=== PATIENT | male | born 1940 | race Caucasian/White ===

== ENCOUNTER 2018-12-29 15:59 | Inpatient (IN) | payer MEDICARE ==
[2018-12-29] MEDS ORDERED: Sodium Chloride 0.9% 10 ML Syringe FLUSH PRN (16:09)
[2018-12-29 17:28] LABS: ACETAMINOPHEN 0 ug/mL (10-30)
--- NOTE | 2018-12-29 17:36 | EDM.PDOC ---
ED HPI GENERAL MEDICAL PROBLEM - General Chief Complaint: Neuro Symptoms/Deficits Stated Complaint: [facility] Time Seen by Provider: 12/29/18 16:08 Source of Information: Reports: Patient, EMS History Limitations: Reports: No Limitations - History of Present Illness INITIAL COMMENTS - FREE TEXT/NARRATIVE: The patient presents by [facility] for a stroke. The patient says this started night right after dinner. His last time know well was 6pm. His right arm and leg quit working. He has severe weakness to his right arm and moderate weakness to his right leg. He knew he had a stroke he went to bed and did not call anyone for help. He lives alone. He got depressed on Saturday and cut his arm in 3 places. Twice to the right wrist and once to the right AC. He was trying to kill himself but he did not bleed that much. He has no headache, fever, chills, cough, chest pain, shortness of breath, abdominal pain, nausea or vomiting. He called 911 for help. He has to crawl in his house to get around. He new cutting himself was wrong. He has not eaten or drank much the past few days. He has prostate cancer and he is on medication for that and high blood pressure. His PSA has gone up so his urologist is coming up with a different plan. He does admit to drinking the past few days. Onset: Sudden Duration: Day(s): (5) Severity: Severe Improves with: Reports: None Worsens with: Reports: None Associated Symptoms: Reports: No Other Symptoms - Related Data Allergies Allergy/AdvReac Type Severity Reaction Status Date / Time No Known Allergies Allergy Verified 12/29/18 16:13 Home Meds: Home Meds Degarelix [Firmagon] 80 mg SQ ASDIRECTED 12/29/18 [History] Losartan/Hydrochlorothiazide [Hyzaar 100-12.5 Tablet] 1 each PO DAILY 12/29/18 [ History] amLODIPine Besylate [Amlodipine Besylate] 5 mg PO DAILY 12/29/18 [History] Past Medical History Cardiovascular History: Reports: Hypertension Oncologic (Cancer) History: Reports: Prostate - Past Surgical History Male Surgical History: Reports: Other (See Below) Other Male Surgeries/Procedures: patient has seeds placed for prostrate cancer. Social & Family History - Tobacco Use Smoking Status *Q: Current Every Day Smoker Years of Tobacco use: 62 Packs/Tins Daily: 1 Used Tobacco, but Quit: No - Caffeine Use Caffeine Use: Reports: Coffee, Soda - Alcohol Use Number of Drinks Per Day: 4 Date of Last Drink: 12/29/18 - Recreational Drug Use Recreational Drug Use: No ED ROS GENERAL - Review of Systems Review Of Systems: See Below Constitutional: Reports: No Symptoms HEENT: Reports: No Symptoms Respiratory: Reports: No Symptoms Cardiovascular: Reports: No Symptoms Endocrine: Reports: No Symptoms GI/Abdominal: Reports: No Symptoms : Reports: No Symptoms Neurological: Reports: Other (Right arm and leg weakness with numbness) ED EXAM, NEURO - Physical Exam Exam: See Below Exam Limited By: No Limitations General Appearance: Alert, No Apparent Distress Ears: Normal External Exam Nose: Normal Inspection Head Exam: Atraumatic, Normocephalic Neck: Normal Inspection Respiratory/Chest: No Respiratory Distress, Lungs Clear, Normal Breath Sounds Cardiovascular: Regular Rate, Rhythm, No Edema, No Murmur GI/Abdominal: Soft, Non-Tender, No Organomegaly, No Mass Neurological: Alert, Other (Severe weakness to his hand and wrist on the right. Moderate weakness to the shoulder. He can lift his arm up. He has moderate weakness to his right leg.) Extremities: Other (1cm laceration to the right AC, two 1cm lacerations to the right wrist) EKG INTERPRETATION EKG Date: 12/29/18 Time: 16:24 Rhythm: Other (sinus tachycardia) Rate (Beats/Min): 120 [place]: Normal P-Wave: Present QRS: Normal ST-T: Depressed (Global ST depression) QT: Normal Course - Vital Signs Last Recorded V/S: Last Vital Signs Temp 98.5 F 12/29/18 16:06 Pulse 121 H 12/29/18 16:06 Resp 18 12/29/18 16:06 BP 137/84 12/29/18 16:06 Pulse Ox 98 12/29/18 16:06 - Orders/Labs/Meds Orders: Active Orders 24 hr Category Date Time Status Cardiac Monitoring [RC] . DIRECTED Care 12/29/18 16:09 Active EKG Documentation Completion [RC] STAT Care 12/29/18 16:09 Active Peripheral IV Care [RC] . DIRECTED Care 12/29/18 16:09 Active Head wo Cont [CT] Routine Exams 12/29/18 16:11 Taken DRUG SCREEN, URINE [URCHEM] Stat Lab 12/29/18 17:52 Ordered DRUG SCREEN, URINE [URCHEM] Stat Lab 12/29/18 17:52 Ordered NS + KCl 20mEq/L [Normal Saline with 20 mEq KCl] 1,000 Med 12/29/18 18:00 Active ml IV ASDIRECTED Sodium Chloride 0.9% [Saline Flush] Med 12/29/18 16:09 Active 10 ml FLUSH ASDIRECTED PRN Peripheral IV Insertion Adult [OM.PC] Stat Oth 12/29/18 16:09 Ordered Medication Orders Potassium Chloride/Sodium Chloride (Normal Saline With 20 Meq Kcl) 1,000 mls @ 150 mls/hr IV ASDIRECTED ADELINA Last Admin: 12/29/18 18:03 Dose: 150 mls/hr Sodium Chloride (Saline Flush) 10 ml FLUSH ASDIRECTED PRN PRN Reason: Keep Vein Open Last Admin: 12/29/18 16:28 Dose: 10 ml Labs: Laboratory Tests 12/29/18 12/29/18 12/29/18 Range/Units 16:15 16:35 16:35 WBC 12.79 H (4.23-9.07) K/mm3 RBC 3.98 L (4.63-6.08) M/mm3 Hgb 11.9 L (13.7-17.5) gm/L Hct 35.4 L (40.1-51.0) % MCV 88.9 (79.0-92.2) fl MCH 29.9 (25.7-32.2) pg MCHC 33.6 (32.2-35.5) g/dl RDW Std Deviation 44.6 H (35.1-43.9) fL Plt Count 278 (163-337) K/mm3 MPV 10.1 (9.4-12.3) fl Neut % (Auto) 77.7 H (34.0-67.9) % Lymph % (Auto) 14.5 L (21.8-53.1) % [place] % (Auto) 7.2 (5.3-12.2) % Eos % (Auto) 0.2 L (0.8-7.0) Baso % (Auto) 0.2 (0.1-1.2) % Neut # (Auto) 9.95 H (1.78-5.38) K/mm3 Lymph # (Auto) 1.86 (1.32-3.57) K/mm3 [place] # (Auto) 0.92 H (0.30-0.82) K/mm3 Eos # (Auto) 0.02 L (0.04-0.54) K/mm3 Baso # (Auto) 0.02 (0.01-0.08) K/mm3 PT 10.9 (9.5-12.1) SECONDS INR 1.00 APTT 25 (24-31) SECONDS Sodium (136-145) mEq/L Potassium (3.5-5.1) mEq/L Chloride (98-107) mEq/L Carbon Dioxide (21-32) mEq/L Anion Gap (5-15) BUN (7-18) mg/dL Creatinine (0.7-1.3) mg/dL Est Cr Clr Drug Dosing mL/min Estimated GFR (MDRD) (>60) mL/min BUN/Creatinine Ratio (14-18) Glucose (83-115) mg/dL POC Glucose 124 H (83-110) mg/dL Calcium (8.5-10.1) mg/dL Total Bilirubin (0.2-1.0) mg/dL AST (15-37) U/L ALT (16-63) U/L Alkaline Phosphatase (46-116) U/L Troponin I (0.00-0.056) ng/mL Total Protein (6.4-8.2) g/dl Albumin (3.4-5.0) g/dl Globulin gm/dL Albumin/Globulin Ratio (1-2) TSH 3rd Generation (0.358-3.74) uIU/mL Salicylates (2.8-20) mg/dL Acetaminophen (10-30) ug/mL Ethyl Alcohol (0.00) gm% 12/29/18 12/29/18 Range/Units 16:35 16:35 WBC (4.23-9.07) K/mm3 RBC (4.63-6.08) M/mm3 Hgb (13.7-17.5) gm/L Hct (40.1-51.0) % MCV (79.0-92.2) fl MCH (25.7-32.2) pg MCHC (32.2-35.5) g/dl RDW Std Deviation (35.1-43.9) fL Plt Count (163-337) K/mm3 MPV (9.4-12.3) fl Neut % (Auto) (34.0-67.9) % Lymph % (Auto) (21.8-53.1) % [place] % (Auto) (5.3-12.2) % Eos % (Auto) (0.8-7.0) Baso % (Auto) (0.1-1.2) % Neut # (Auto) (1.78-5.38) K/mm3 Lymph # (Auto) (1.32-3.57) K/mm3 [place] # (Auto) (0.30-0.82) K/mm3 Eos # (Auto) (0.04-0.54) K/mm3 Baso # (Auto) (0.01-0.08) K/mm3 PT (9.5-12.1) SECONDS INR APTT (24-31) SECONDS Sodium 140 (136-145) mEq/L Potassium 2.5 L (3.5-5.1) mEq/L Chloride 99 (98-107) mEq/L Carbon Dioxide 32 (21-32) mEq/L Anion Gap 11.5 (5-15) BUN 45 H (7-18) mg/dL Creatinine 1.3 (0.7-1.3) mg/dL Est Cr Clr Drug Dosing 39.69 mL/min Estimated GFR (MDRD) 54 (>60) mL/min BUN/Creatinine Ratio 34.6 H (14-18) Glucose 116 H (83-115) mg/dL POC Glucose (83-110) mg/dL Calcium 8.8 (8.5-10.1) mg/dL Total Bilirubin 1.2 H (0.2-1.0) mg/dL AST 21 (15-37) U/L ALT 18 (16-63) U/L Alkaline Phosphatase 78 (46-116) U/L Troponin I < 0.017 (0.00-0.056) ng/mL Total Protein 6.4 (6.4-8.2) g/dl Albumin 3.1 L (3.4-5.0) g/dl Globulin 3.3 gm/dL Albumin/Globulin Ratio 0.9 L (1-2) TSH 3rd Generation 2.290 (0.358-3.74) uIU/mL Salicylates 0.5 L (2.8-20) mg/dL Acetaminophen 0 L (10-30) ug/mL Ethyl Alcohol 0.00 (0.00) gm% Meds: Medications Generic Name Dose Route Start Last Admin Trade Name Freq PRN Reason Stop Dose Admin Potassium Chloride/Sodium Chloride 1,000 mls @ 150 mls/hr 12/29/18 18:00 02/13 18:03 Normal Saline With 20 Meq Kcl IV 150 mls/hr ASDIRECTED ADELINA Administration Sodium Chloride 10 ml 12/29/18 16:09 12/29/18 16:28 Saline Flush FLUSH 10 ml ASDIRECTED PRN Administration Keep Vein Open - Re-Assessments/Exams Free Text/Narrative Re-Assessment/Exam: 12/29/18 17:39 I ordered an IV saline lock, EKG, CT of his head, and labs. His EKG shows a sinus tachycardia with some ST depression globally. His CT shows senescent change but no acute intracranial abnormality is identified on noncontrast head CT exam. His WBC was elevated at 12.79. His Hgb was low at 11.9. His PT, INR and PTT were normal. His K was low at 2.5. I ordered IV NS with 20 of KCL at 150mL/hr. His glucose was 124. His TSH was normal. His ETOH was negative. His salicylates and acetaminophen were normal. I feel he needs to be admitted. I called Dr Lenz and she agreed to the admission. I talked to him about code status. He wants to be full code. He is not suicidal at this time. He admits it was a mistake. Departure - Departure Time of Disposition: 18:20 Disposition: Admitted As Inpatient 67 Condition: Fair Clinical Impression: Hypokalemia, Suicidal ideation Cerebrovascular accident (CVA) Qualifiers: CVA mechanism: unspecified Qualified Code(s): I63.9 - Cerebral infarction, unspecified Laceration of right upper arm Qualifiers: Encounter type: initial encounter Qualified Code(s): S41.111A - Laceration without foreign body of right upper arm, initial encounter - Discharge Information Referrals: Shai Samano MD [Primary Care Provider] - Forms: ED Department Discharge - My Orders Last 24 Hours: My Active Orders 12/29/18 16:09 Cardiac Monitoring [RC] . DIRECTED EKG Documentation Completion [RC] STAT Peripheral IV Care [RC] . DIRECTED Sodium Chloride 0.9% [Saline Flush] 10 ml FLUSH ASDIRECTED PRN Peripheral IV Insertion Adult [OM.PC] Stat 12/29/18 16:11 Head wo Cont [CT] Routine 12/29/18 17:52 DRUG SCREEN, URINE [URCHEM] Stat DRUG SCREEN, URINE [URCHEM] Stat 12/29/18 18:00 NS + KCl 20mEq/L [Normal Saline with 20 mEq KCl] 1,000 ml IV ASDIRECTED - Assessment/Plan Last 24 Hours: My Active Orders 12/29/18 16:09 Cardiac Monitoring [RC] . DIRECTED EKG Documentation Completion [RC] STAT Peripheral IV Care [RC] . DIRECTED Sodium Chloride 0.9% [Saline Flush] 10 ml FLUSH ASDIRECTED PRN Peripheral IV Insertion Adult [OM.PC] Stat 12/29/18 16:11 Head wo Cont [CT] Routine 12/29/18 17:52 DRUG SCREEN, URINE [URCHEM] Stat DRUG SCREEN, URINE [URCHEM] Stat 12/29/18 18:00 NS + KCl 20mEq/L [Normal Saline with 20 mEq KCl] 1,000 ml IV ASDIRECTED
[2018-12-29] MEDS ORDERED: NS + KCl 20mEq/L 1,000 ML IV SCH (18:00)
--- NOTE | 2018-12-29 19:23 | PCM.HP ---
H&P History of Present Illness - General Date of Service: 12/29/18 Admit Problem/Dx: Admission Diagnosis/Problem Admission Diagnosis/Problem CVA, Cerebrovascular accident Source of Information: Patient, Provider - History of Present Illness Initial Comments - Free Text/Narative: 78 year old male, right handed with history of end stage prostate cancer , presented after cutting his arms because, "I wanted to bleed to ." He apparently noticed that he was unable to move his upper and lower extremities starting . It is unclear when he may have wanted to harm himself; he lives alone. The patient is a full code and does not want his family notified regarding his admission. He is outside the time frame for a thrombolytic. Onset of Symptoms: Reports: Unknown/Unsure Symptom Onset Date: 12/25/18 Duration of Symptoms: Reports: Day(s):, Getting Worse Location: Reports: Upper Extremity, Right, Lower Extremity, Left, Generalized Severity: Moderate Improves with: Reports: None Worsens with: Reports: None Associated Symptoms: Reports: Weakness - Related Data Allergies/Adverse Reactions: Allergies Allergy/AdvReac Type Severity Reaction Status Date / Time No Known Allergies Allergy Verified 12/29/18 16:13 Home Medications: Home Meds Degarelix [Firmagon] 80 mg SQ ASDIRECTED 12/29/18 [History] Losartan/Hydrochlorothiazide [Hyzaar 100-12.5 Tablet] 1 each PO DAILY 12/29/18 [ History] amLODIPine Besylate [Amlodipine Besylate] 5 mg PO DAILY 12/29/18 [History] Past Medical History Cardiovascular History: Reports: Hypertension Oncologic (Cancer) History: Reports: Prostate - Past Surgical History Male Surgical History: Reports: Other (See Below) Other Male Surgeries/Procedures: patient has seeds placed for prostrate cancer. Social & Family History - Tobacco Use Smoking Status *Q: Current Every Day Smoker Years of Tobacco use: 62 Packs/Tins Daily: 1 Used Tobacco, but Quit: No - Caffeine Use Caffeine Use: Reports: Coffee, Soda - Alcohol Use Number of Drinks Per Day: 4 Date of Last Drink: 12/29/18 - Recreational Drug Use Recreational Drug Use: No H&P Review of Systems - Review of Systems: Review Of Systems: See Below General: Reports: Weakness, Weight Loss HEENT: Reports: No Symptoms Pulmonary: Reports: No Symptoms Cardiovascular: Reports: No Symptoms Gastrointestinal: Reports: No Symptoms, Mucous in Stool Musculoskeletal: Reports: No Symptoms Skin: Reports: No Symptoms Psychiatric: Reports: No Symptoms Neurological: Reports: Other (flacid RUE) Hematologic/Lymphatic: Reports: No Symptoms Immunologic: Reports: No Symptoms Exam - Exam Exam: See Below - Vital Signs Vital Signs: Last Vital Signs Temp 36.9 C 12/29/18 16:06 Pulse 121 H 12/29/18 16:06 Resp 18 12/29/18 16:06 BP 137/84 12/29/18 16:06 Pulse Ox 98 12/29/18 16:06 Weight: 58.967 kg - Exam Quality Assessment: Supplemental Oxygen, DVT Prophylaxis General: Alert, Oriented, Cooperative HEENT: EOMI, Nares Patent, Normal Nasal Septum, Pupils Equal, Pupils Reactive, PERRLA Neck: Trachea Midline Lungs: Clear to Auscultation, Normal Respiratory Effort Cardiovascular: Regular Rate GI/Abdominal Exam: Normal Bowel Sounds, Soft, Non-Tender, No Organomegaly, No Distention (Male) Exam: Deferred Rectal (Males) Exam: Deferred Back Exam: Normal Inspection Extremities: Normal Inspection, Non-Tender, Slow Capillary Refill Skin: Warm Neurological: Cranial Nerves Intact Neuro Extensive - Mental Status: Alert, Oriented x3 Neuro Extensive - Motor, Sensory, Reflexes: CN II-XII Intact, Other (flacid RUE ; LUE 2/5), Motor/Sensory Deficits Psychiatric: Alert, Depressed - Patient Data Lab Results Last 24 hrs: Laboratory Results - last 24 hr 12/29/18 12/29/18 12/29/18 Range/Units 16:15 16:35 16:35 WBC 12.79 H (4.23-9.07) K/mm3 RBC 3.98 L (4.63-6.08) M/mm3 Hgb 11.9 L (13.7-17.5) gm/L Hct 35.4 L (40.1-51.0) % MCV 88.9 (79.0-92.2) fl MCH 29.9 (25.7-32.2) pg MCHC 33.6 (32.2-35.5) g/dl RDW Std Deviation 44.6 H (35.1-43.9) fL Plt Count 278 (163-337) K/mm3 MPV 10.1 (9.4-12.3) fl Neut % (Auto) 77.7 H (34.0-67.9) % Lymph % (Auto) 14.5 L (21.8-53.1) % Ada % (Auto) 7.2 (5.3-12.2) % Eos % (Auto) 0.2 L (0.8-7.0) Baso % (Auto) 0.2 (0.1-1.2) % Neut # (Auto) 9.95 H (1.78-5.38) K/mm3 Lymph # (Auto) 1.86 (1.32-3.57) K/mm3 Ada # (Auto) 0.92 H (0.30-0.82) K/mm3 Eos # (Auto) 0.02 L (0.04-0.54) K/mm3 Baso # (Auto) 0.02 (0.01-0.08) K/mm3 PT 10.9 (9.5-12.1) SECONDS INR 1.00 APTT 25 (24-31) SECONDS Sodium (136-145) mEq/L Potassium (3.5-5.1) mEq/L Chloride (98-107) mEq/L Carbon Dioxide (21-32) mEq/L Anion Gap (5-15) BUN (7-18) mg/dL Creatinine (0.7-1.3) mg/dL Est Cr Clr Drug Dosing mL/min Estimated GFR (MDRD) (>60) mL/min BUN/Creatinine Ratio (14-18) Glucose (83-115) mg/dL POC Glucose 124 H (83-110) mg/dL Calcium (8.5-10.1) mg/dL Total Bilirubin (0.2-1.0) mg/dL AST (15-37) U/L ALT (16-63) U/L Alkaline Phosphatase (46-116) U/L Troponin I (0.00-0.056) ng/mL Total Protein (6.4-8.2) g/dl Albumin (3.4-5.0) g/dl Globulin gm/dL Albumin/Globulin Ratio (1-2) TSH 3rd Generation (0.358-3.74) uIU/mL Salicylates (2.8-20) mg/dL Urine Opiates Screen (DGASZU=019) Ur Buprenorphine Scrn (CUTOFF=10) Ur Oxycodone Screen (LYG5WX=461) Urine Methadone Screen (TXH4PZ=977) Ur Propoxyphene Screen (YOXQJK=078) Acetaminophen (10-30) ug/mL Ur Barbiturates Screen (LOQMSF=642) Ur Tricyclics Screen (VQATPX=227) Ur Phencyclidine Scrn (CUTOFF=25) Ur Amphetamine Screen (LZJSIM=705) U Methamphetamines Scrn (JGIXIE=155) U Benzodiazepines Scrn (KKGWPC=048) U Cocaine Metab Screen (VYRNDY=006) U Marijuana (THC) Screen (CUTOFF=50) Ethyl Alcohol (0.00) gm% 12/29/18 12/29/18 12/29/18 Range/Units 16:35 16:35 17:47 WBC (4.23-9.07) K/mm3 RBC (4.63-6.08) M/mm3 Hgb (13.7-17.5) gm/L Hct (40.1-51.0) % MCV (79.0-92.2) fl MCH (25.7-32.2) pg MCHC (32.2-35.5) g/dl RDW Std Deviation (35.1-43.9) fL Plt Count (163-337) K/mm3 MPV (9.4-12.3) fl Neut % (Auto) (34.0-67.9) % Lymph % (Auto) (21.8-53.1) % Ada % (Auto) (5.3-12.2) % Eos % (Auto) (0.8-7.0) Baso % (Auto) (0.1-1.2) % Neut # (Auto) (1.78-5.38) K/mm3 Lymph # (Auto) (1.32-3.57) K/mm3 Ada # (Auto) (0.30-0.82) K/mm3 Eos # (Auto) (0.04-0.54) K/mm3 Baso # (Auto) (0.01-0.08) K/mm3 PT (9.5-12.1) SECONDS INR APTT (24-31) SECONDS Sodium 140 (136-145) mEq/L Potassium 2.5 L (3.5-5.1) mEq/L Chloride 99 (98-107) mEq/L Carbon Dioxide 32 (21-32) mEq/L Anion Gap 11.5 (5-15) BUN 45 H (7-18) mg/dL Creatinine 1.3 (0.7-1.3) mg/dL Est Cr Clr Drug Dosing 39.69 mL/min Estimated GFR (MDRD) 54 (>60) mL/min BUN/Creatinine Ratio 34.6 H (14-18) Glucose 116 H (83-115) mg/dL POC Glucose (83-110) mg/dL Calcium 8.8 (8.5-10.1) mg/dL Total Bilirubin 1.2 H (0.2-1.0) mg/dL AST 21 (15-37) U/L ALT 18 (16-63) U/L Alkaline Phosphatase 78 (46-116) U/L Troponin I < 0.017 (0.00-0.056) ng/mL Total Protein 6.4 (6.4-8.2) g/dl Albumin 3.1 L (3.4-5.0) g/dl Globulin 3.3 gm/dL Albumin/Globulin Ratio 0.9 L (1-2) TSH 3rd Generation 2.290 (0.358-3.74) uIU/mL Salicylates 0.5 L (2.8-20) mg/dL Urine Opiates Screen Negative (CUSHBD=868) Ur Buprenorphine Scrn Negative (CUTOFF=10) Ur Oxycodone Screen Negative (XRE7UH=309) Urine Methadone Screen Negative (STM3AF=486) Ur Propoxyphene Screen Negative (GTNOUN=596) Acetaminophen 0 L (10-30) ug/mL Ur Barbiturates Screen Negative (WHTDBR=873) Ur Tricyclics Screen Negative (NWXAJZ=524) Ur Phencyclidine Scrn Negative (CUTOFF=25) Ur Amphetamine Screen Negative (CDZXAN=522) U Methamphetamines Scrn Negative (ALGZBD=791) U Benzodiazepines Scrn Negative (VVIWCZ=514) U Cocaine Metab Screen Negative (ZSKVOY=068) U Marijuana (THC) Screen Negative (CUTOFF=50) Ethyl Alcohol 0.00 (0.00) gm% Result Diagrams: 12/30/18 06:05 12/30/18 06:05 - Problem List (1) Tobacco dependence SNOMED Code(s): 40245896 ICD Code: F17.200 - NICOTINE DEPENDENCE, UNSPECIFIED, UNCOMPLICATED Status : Acute Current Visit: Yes (2) Prostate cancer SNOMED Code(s): 038784061 ICD Code: C61 - MALIGNANT NEOPLASM OF PROSTATE Status: Acute Current Visit: Yes (3) Cerebrovascular accident (CVA) SNOMED Code(s): 899153144 ICD Code: I63.9 - CEREBRAL INFARCTION, UNSPECIFIED Status: Acute Current Visit: Yes Qualifiers: CVA mechanism: unspecified Qualified Code(s): I63.9 - Cerebral infarction, unspecified (4) Hypokalemia SNOMED Code(s): 06610584 ICD Code: E87.6 - HYPOKALEMIA Status: Acute Current Visit: Yes (5) Laceration of right upper arm SNOMED Code(s): 715270716 ICD Code: S41.111A - LACERATION W/O FOREIGN BODY OF RIGHT UPPER ARM, INIT ENCNTR Status: Acute Current Visit: Yes Qualifiers: Encounter type: initial encounter Qualified Code(s): S41.111A - Laceration without foreign body of right upper arm, initial encounter (6) Suicidal ideation SNOMED Code(s): 5512323 ICD Code: R45.851 - SUICIDAL IDEATIONS Status: Acute Current Visit: Yes Problem List Initiated/Reviewed/Updated: Yes Orders Last 24hrs: Active Orders 24 hr Category Date Time Status Patient Status [ADT] Routine ADT 12/29/18 18:53 Active Cardiac Monitoring [RC] . DIRECTED Care 12/29/18 16:09 Active EKG Documentation Completion [RC] STAT Care 12/29/18 16:09 Active Peripheral IV Care [RC] . DIRECTED Care 12/29/18 16:09 Active Head wo Cont [CT] Routine Exams 12/29/18 16:11 Taken NS + KCl 20mEq/L [Normal Saline with 20 mEq KCl] 1,000 Med 12/29/18 18:00 Active ml IV ASDIRECTED Sodium Chloride 0.9% [Saline Flush] Med 12/29/18 16:09 Active 10 ml FLUSH ASDIRECTED PRN Peripheral IV Insertion Adult [OM.PC] Stat Oth 12/29/18 16:09 Ordered Medication Orders Potassium Chloride/Sodium Chloride (Normal Saline With 20 Meq Kcl) 1,000 mls @ 150 mls/hr IV ASDIRECTED ADELINA Last Admin: 12/29/18 18:03 Dose: 150 mls/hr Sodium Chloride (Saline Flush) 10 ml FLUSH ASDIRECTED PRN PRN Reason: Keep Vein Open Last Admin: 12/29/18 16:28 Dose: 10 ml Assessment/Plan Comment:: Impression: Suicidal ideation, history of end stage prostate cancer per patient report Scheduled for PET scan this week; CTX, Degarelix S/P bilateral extremity lacerations CVA, subacute with predominately right sided deficits Dehydration Hypokalemia Elevated WBCs, query reactive cf infectious Chronic HTN HLD Plan: IVF CVA protocol MRI re; mets and CVA. Bedside swallow evaluation Ischemic work up; ECG generalized ST depression, Sinus tach Lipid panel EMR from oncologist Psychiatric consult; re: depression with suicidal thoughts/gesture Nicotine replacement Full code status DVT prophylaxis
[2018-12-29] MEDS ORDERED: Sodium Chloride 0.9% 1,000 ML IV ONE (20:20)
[2018-12-29] MEDS ORDERED: Magnesium Sulfate/Water 2 GM in Premix Bag 1 BAG IV ONE (20:24)
[2018-12-29] MEDS ORDERED: Lactated Ringers 1,000 ML IV ONE (20:37)
[2018-12-29] MEDS: Potassium Chloride 20 MEQ Tab.ER PO SCH (21:11)
[2018-12-29] MEDS: Enoxaparin 40 MG/0.4 ML Syringe SUBCUT SCH (21:11)
[2018-12-29] MEDS: Lactated Ringers 1,000 ML IV SCH (22:17)
[2018-12-30] MEDS ORDERED: Lactated Ringers 1,000 ML IV ONE (04:34)
[2018-12-30] MEDS ORDERED: Bisacodyl 10 MG Supp RECTAL ONE (06:30)
--- NOTE | 2018-12-30 07:09 | CT ---
Head CT Technique: Multiple axial sections to the brain were obtained. Intravenous contrast was not utilized. Comparison: No previous study. Findings: Ventricles along with basal cisterns and sulci over the convexities are moderately prominent. Several small old white matter infarcts are seen on both sides. Diminished density is noted within the periventricular and subcortical white matter compatible with small vessel ischemic demyelination change. Several old lacunar infarcts are noted within the basal ganglia. No other abnormal parenchymal densities are seen. No evidence of intracranial hemorrhage. No midline shift or mass effect is seen. Bone window settings were reviewed which show no acute calvarial abnormality. Visualized sinuses are clear. Impression: 1. Senescent change as noted above. No acute intracranial abnormality is identified on noncontrast head CT exam. Diagnostic code #2 MTDD
[2018-12-30] MEDS: Lactated Ringers 1,000 ML IV SCH (07:12)
--- NOTE | 2018-12-30 07:24 | PCM.PN ---
- General Info Date of Service: 12/30/18 Admission Dx/Problem (Free Text): Admission Diagnosis/Problem Admission Diagnosis/Problem CVA, Cerebrovascular accident - Patient Data Vitals - Most Recent: Last Vital Signs Temp 98.8 F 12/29/18 23:17 Pulse 117 H 12/29/18 23:17 Resp 12 12/29/18 23:17 BP 142/66 H 12/29/18 23:17 Pulse Ox 96 12/29/18 23:17 Weight - Most Recent: 134 lb 9.6 oz I&O - Last 24 Hours: Intake & Output 12/29/18 12/30/18 12/30/18 22:59 06:59 14:59 Intake Total 265 2732 Output Total 200 Balance 265 2532 Lab Results Last 24 Hours: Laboratory Results - last 24 hr 12/29/18 12/29/18 12/29/18 Range/Units 16:15 16:35 16:35 WBC 12.79 H (4.23-9.07) K/mm3 RBC 3.98 L (4.63-6.08) M/mm3 Hgb 11.9 L (13.7-17.5) gm/L Hct 35.4 L (40.1-51.0) % MCV 88.9 (79.0-92.2) fl MCH 29.9 (25.7-32.2) pg MCHC 33.6 (32.2-35.5) g/dl RDW Std Deviation 44.6 H (35.1-43.9) fL Plt Count 278 (163-337) K/mm3 MPV 10.1 (9.4-12.3) fl Neut % (Auto) 77.7 H (34.0-67.9) % Lymph % (Auto) 14.5 L (21.8-53.1) % Glenn % (Auto) 7.2 (5.3-12.2) % Eos % (Auto) 0.2 L (0.8-7.0) Baso % (Auto) 0.2 (0.1-1.2) % Neut # (Auto) 9.95 H (1.78-5.38) K/mm3 Lymph # (Auto) 1.86 (1.32-3.57) K/mm3 Glenn # (Auto) 0.92 H (0.30-0.82) K/mm3 Eos # (Auto) 0.02 L (0.04-0.54) K/mm3 Baso # (Auto) 0.02 (0.01-0.08) K/mm3 PT 10.9 (9.5-12.1) SECONDS INR 1.00 APTT 25 (24-31) SECONDS Sodium (136-145) mEq/L Potassium (3.5-5.1) mEq/L Chloride (98-107) mEq/L Carbon Dioxide (21-32) mEq/L Anion Gap (5-15) BUN (7-18) mg/dL Creatinine (0.7-1.3) mg/dL Est Cr Clr Drug Dosing mL/min Estimated GFR (MDRD) (>60) mL/min BUN/Creatinine Ratio (14-18) Glucose (83-115) mg/dL POC Glucose 124 H (83-110) mg/dL Lactic Acid (0.4-2.0) mmol/L Calcium (8.5-10.1) mg/dL Magnesium (1.8-2.4) mg/dl Total Bilirubin (0.2-1.0) mg/dL AST (15-37) U/L ALT (16-63) U/L Alkaline Phosphatase (46-116) U/L Troponin I (0.00-0.056) ng/mL Total Protein (6.4-8.2) g/dl Albumin (3.4-5.0) g/dl Globulin gm/dL Albumin/Globulin Ratio (1-2) TSH 3rd Generation (0.358-3.74) uIU/mL Urine Color (Yellow) Urine Appearance (Clear) Urine pH (5.0-8.0) Ur Specific [place] (1.005-1.030) Urine Protein (Negative) Urine Glucose (UA) (Negative) Urine Ketones (Negative) Urine Occult Blood (Negative) Urine Nitrite (Negative) Urine Bilirubin (Negative) Urine Urobilinogen (0.2-1.0) Ur Leukocyte Esterase (Negative) Urine RBC (0-5) /hpf Urine WBC (0-5) /hpf Ur Epithelial Cells (0-5) /hpf Urine Bacteria (FEW) /hpf Urine Mucus (FEW) /hpf Salicylates (2.8-20) mg/dL Urine Opiates Screen (CPDAWV=294) Ur Buprenorphine Scrn (CUTOFF=10) Ur Oxycodone Screen (MZZ2BD=484) Urine Methadone Screen (NKW6VC=719) Ur Propoxyphene Screen (NAKUZM=790) Acetaminophen (10-30) ug/mL Ur Barbiturates Screen (LHIIAW=742) Ur Tricyclics Screen (WKQBUT=582) Ur Phencyclidine Scrn (CUTOFF=25) Ur Amphetamine Screen (AAQTCS=115) U Methamphetamines Scrn (SSVJFN=034) U Benzodiazepines Scrn (VOLDRU=784) U Cocaine Metab Screen (FUFYEP=246) U Marijuana (THC) Screen (CUTOFF=50) Ethyl Alcohol (0.00) gm% 12/29/18 12/29/18 12/29/18 Range/Units 16:35 16:35 16:35 WBC (4.23-9.07) K/mm3 RBC (4.63-6.08) M/mm3 Hgb (13.7-17.5) gm/L Hct (40.1-51.0) % MCV (79.0-92.2) fl MCH (25.7-32.2) pg MCHC (32.2-35.5) g/dl RDW Std Deviation (35.1-43.9) fL Plt Count (163-337) K/mm3 MPV (9.4-12.3) fl Neut % (Auto) (34.0-67.9) % Lymph % (Auto) (21.8-53.1) % Glenn % (Auto) (5.3-12.2) % Eos % (Auto) (0.8-7.0) Baso % (Auto) (0.1-1.2) % Neut # (Auto) (1.78-5.38) K/mm3 Lymph # (Auto) (1.32-3.57) K/mm3 Glenn # (Auto) (0.30-0.82) K/mm3 Eos # (Auto) (0.04-0.54) K/mm3 Baso # (Auto) (0.01-0.08) K/mm3 PT (9.5-12.1) SECONDS INR APTT (24-31) SECONDS Sodium 140 (136-145) mEq/L Potassium 2.5 L (3.5-5.1) mEq/L Chloride 99 (98-107) mEq/L Carbon Dioxide 32 (21-32) mEq/L Anion Gap 11.5 (5-15) BUN 45 H (7-18) mg/dL Creatinine 1.3 (0.7-1.3) mg/dL Est Cr Clr Drug Dosing 39.69 mL/min Estimated GFR (MDRD) 54 (>60) mL/min BUN/Creatinine Ratio 34.6 H (14-18) Glucose 116 H (83-115) mg/dL POC Glucose (83-110) mg/dL Lactic Acid (0.4-2.0) mmol/L Calcium 8.8 (8.5-10.1) mg/dL Magnesium 1.9 (1.8-2.4) mg/dl Total Bilirubin 1.2 H (0.2-1.0) mg/dL AST 21 (15-37) U/L ALT 18 (16-63) U/L Alkaline Phosphatase 78 (46-116) U/L Troponin I < 0.017 (0.00-0.056) ng/mL Total Protein 6.4 (6.4-8.2) g/dl Albumin 3.1 L (3.4-5.0) g/dl Globulin 3.3 gm/dL Albumin/Globulin Ratio 0.9 L (1-2) TSH 3rd Generation 2.290 (0.358-3.74) uIU/mL Urine Color (Yellow) Urine Appearance (Clear) Urine pH (5.0-8.0) Ur Specific [place] (1.005-1.030) Urine Protein (Negative) Urine Glucose (UA) (Negative) Urine Ketones (Negative) Urine Occult Blood (Negative) Urine Nitrite (Negative) Urine Bilirubin (Negative) Urine Urobilinogen (0.2-1.0) Ur Leukocyte Esterase (Negative) Urine RBC (0-5) /hpf Urine WBC (0-5) /hpf Ur Epithelial Cells (0-5) /hpf Urine Bacteria (FEW) /hpf Urine Mucus (FEW) /hpf Salicylates 0.5 L (2.8-20) mg/dL Urine Opiates Screen (VDNOYA=030) Ur Buprenorphine Scrn (CUTOFF=10) Ur Oxycodone Screen (FCN7ZL=289) Urine Methadone Screen (ERL3YT=533) Ur Propoxyphene Screen (BSKQFB=253) Acetaminophen 0 L (10-30) ug/mL Ur Barbiturates Screen (WMOWVU=802) Ur Tricyclics Screen (STFGLJ=200) Ur Phencyclidine Scrn (CUTOFF=25) Ur Amphetamine Screen (QWIZNG=160) U Methamphetamines Scrn (DYLWYD=003) U Benzodiazepines Scrn (EQJEJK=237) U Cocaine Metab Screen (UYDMCR=370) U Marijuana (THC) Screen (CUTOFF=50) Ethyl Alcohol 0.00 (0.00) gm% 12/29/18 12/29/18 12/30/18 Range/Units 17:47 17:47 06:05 WBC 8.70 (4.23-9.07) K/mm3 RBC 3.22 L (4.63-6.08) M/mm3 Hgb 9.5 L (13.7-17.5) gm/L Hct 29.1 L (40.1-51.0) % MCV 90.4 (79.0-92.2) fl MCH 29.5 (25.7-32.2) pg MCHC 32.6 (32.2-35.5) g/dl RDW Std Deviation 44.0 H (35.1-43.9) fL Plt Count 201 (163-337) K/mm3 MPV 11.0 (9.4-12.3) fl Neut % (Auto) 72.0 H (34.0-67.9) % Lymph % (Auto) 21.0 L (21.8-53.1) % Glenn % (Auto) 6.0 (5.3-12.2) % Eos % (Auto) 0.6 L (0.8-7.0) Baso % (Auto) 0.3 (0.1-1.2) % Neut # (Auto) 6.26 H (1.78-5.38) K/mm3 Lymph # (Auto) 1.83 (1.32-3.57) K/mm3 Glenn # (Auto) 0.52 (0.30-0.82) K/mm3 Eos # (Auto) 0.05 (0.04-0.54) K/mm3 Baso # (Auto) 0.03 (0.01-0.08) K/mm3 PT (9.5-12.1) SECONDS INR APTT (24-31) SECONDS Sodium (136-145) mEq/L Potassium (3.5-5.1) mEq/L Chloride (98-107) mEq/L Carbon Dioxide (21-32) mEq/L Anion Gap (5-15) BUN (7-18) mg/dL Creatinine (0.7-1.3) mg/dL Est Cr Clr Drug Dosing mL/min Estimated GFR (MDRD) (>60) mL/min BUN/Creatinine Ratio (14-18) Glucose (83-115) mg/dL POC Glucose (83-110) mg/dL Lactic Acid (0.4-2.0) mmol/L Calcium (8.5-10.1) mg/dL Magnesium (1.8-2.4) mg/dl Total Bilirubin (0.2-1.0) mg/dL AST (15-37) U/L ALT (16-63) U/L Alkaline Phosphatase (46-116) U/L Troponin I (0.00-0.056) ng/mL Total Protein (6.4-8.2) g/dl Albumin (3.4-5.0) g/dl Globulin gm/dL Albumin/Globulin Ratio (1-2) TSH 3rd Generation (0.358-3.74) uIU/mL Urine Color Yellow (Yellow) Urine Appearance Clear (Clear) Urine pH 6.0 (5.0-8.0) Ur Specific [place] 1.025 (1.005-1.030) Urine Protein 1+ H (Negative) Urine Glucose (UA) Negative (Negative) Urine Ketones Trace H (Negative) Urine Occult Blood Negative (Negative) Urine Nitrite Negative (Negative) Urine Bilirubin 1+ H (Negative) Urine Urobilinogen 0.2 (0.2-1.0) Ur Leukocyte Esterase Negative (Negative) Urine RBC 0-5 (0-5) /hpf Urine WBC 0-5 (0-5) /hpf Ur Epithelial Cells 0-5 (0-5) /hpf Urine Bacteria Rare (FEW) /hpf Urine Mucus Not seen (FEW) /hpf Salicylates (2.8-20) mg/dL Urine Opiates Screen Negative (WIFDBR=357) Ur Buprenorphine Scrn Negative (CUTOFF=10) Ur Oxycodone Screen Negative (OYR6UN=380) Urine Methadone Screen Negative (VUM3HS=327) Ur Propoxyphene Screen Negative (CEJGGQ=046) Acetaminophen (10-30) ug/mL Ur Barbiturates Screen Negative (FAZNQZ=220) Ur Tricyclics Screen Negative (OCHZHJ=652) Ur Phencyclidine Scrn Negative (CUTOFF=25) Ur Amphetamine Screen Negative (VYFJBD=913) U Methamphetamines Scrn Negative (SBEWRB=564) U Benzodiazepines Scrn Negative (GKRAFI=773) U Cocaine Metab Screen Negative (SBPVRF=313) U Marijuana (THC) Screen Negative (CUTOFF=50) Ethyl Alcohol (0.00) gm% 12/30/18 Range/Units 06:05 WBC (4.23-9.07) K/mm3 RBC (4.63-6.08) M/mm3 Hgb (13.7-17.5) gm/L Hct (40.1-51.0) % MCV (79.0-92.2) fl MCH (25.7-32.2) pg MCHC (32.2-35.5) g/dl RDW Std Deviation (35.1-43.9) fL Plt Count (163-337) K/mm3 MPV (9.4-12.3) fl Neut % (Auto) (34.0-67.9) % Lymph % (Auto) (21.8-53.1) % [place] % (Auto) (5.3-12.2) % Eos % (Auto) (0.8-7.0) Baso % (Auto) (0.1-1.2) % Neut # (Auto) (1.78-5.38) K/mm3 Lymph # (Auto) (1.32-3.57) K/mm3 [place] # (Auto) (0.30-0.82) K/mm3 Eos # (Auto) (0.04-0.54) K/mm3 Baso # (Auto) (0.01-0.08) K/mm3 PT (9.5-12.1) SECONDS INR APTT (24-31) SECONDS Sodium (136-145) mEq/L Potassium (3.5-5.1) mEq/L Chloride (98-107) mEq/L Carbon Dioxide (21-32) mEq/L Anion Gap (5-15) BUN (7-18) mg/dL Creatinine (0.7-1.3) mg/dL Est Cr Clr Drug Dosing mL/min Estimated GFR (MDRD) (>60) mL/min BUN/Creatinine Ratio (14-18) Glucose (83-115) mg/dL POC Glucose (83-110) mg/dL Lactic Acid 0.5 (0.4-2.0) mmol/L Calcium (8.5-10.1) mg/dL Magnesium (1.8-2.4) mg/dl Total Bilirubin (0.2-1.0) mg/dL AST (15-37) U/L ALT (16-63) U/L Alkaline Phosphatase (46-116) U/L Troponin I (0.00-0.056) ng/mL Total Protein (6.4-8.2) g/dl Albumin (3.4-5.0) g/dl Globulin gm/dL Albumin/Globulin Ratio (1-2) TSH 3rd Generation (0.358-3.74) uIU/mL Urine Color (Yellow) Urine Appearance (Clear) Urine pH (5.0-8.0) Ur Specific [place] (1.005-1.030) Urine Protein (Negative) Urine Glucose (UA) (Negative) Urine Ketones (Negative) Urine Occult Blood (Negative) Urine Nitrite (Negative) Urine Bilirubin (Negative) Urine Urobilinogen (0.2-1.0) Ur Leukocyte Esterase (Negative) Urine RBC (0-5) /hpf Urine WBC (0-5) /hpf Ur Epithelial Cells (0-5) /hpf Urine Bacteria (FEW) /hpf Urine Mucus (FEW) /hpf Salicylates (2.8-20) mg/dL Urine Opiates Screen (JLEKKW=752) Ur Buprenorphine Scrn (CUTOFF=10) Ur Oxycodone Screen (UQN1FH=025) Urine Methadone Screen (RQG5NN=444) Ur Propoxyphene Screen (NXXFEY=225) Acetaminophen (10-30) ug/mL Ur Barbiturates Screen (WGABIP=841) Ur Tricyclics Screen (KBSWCL=780) Ur Phencyclidine Scrn (CUTOFF=25) Ur Amphetamine Screen (GHGHBN=029) U Methamphetamines Scrn (AMQKJY=146) U Benzodiazepines Scrn (EYGJWN=398) U Cocaine Metab Screen (JMZPQM=044) U Marijuana (THC) Screen (CUTOFF=50) Ethyl Alcohol (0.00) gm% Med Orders - Current: Current Medications Enoxaparin Sodium (Lovenox) 40 mg SUBCUT Q24H [facility] Last Admin: 12/29/18 21:11 Dose: 40 mg Potassium Chloride (Klor-Con M20) 40 meq PO BID [facility] Last Admin: 12/29/18 21:11 Dose: 40 meq Sodium Chloride (Saline Flush) 10 ml FLUSH ASDIRECTED PRN PRN Reason: Keep Vein Open Last Admin: 12/29/18 16:28 Dose: 10 ml Discontinued Medications Bisacodyl (Dulcolax) 10 mg RECTAL ONETIME ONE Stop: 12/30/18 06:31 Potassium Chloride/Sodium Chloride (Normal Saline With 20 Meq Kcl) 1,000 mls @ 150 mls/hr IV ASDIRECTED [facility] Last Admin: 12/29/18 18:03 Dose: 150 mls/hr Sodium Chloride (Normal Saline) 1,000 mls @ 999 mls/hr IV ONETIME ONE Stop: 12/29/18 21:20 Last Admin: 12/29/18 21:25 Dose: Not Given Magnesium Sulfate 2 gm/ Premix 50 mls @ 25 mls/hr IV ONETIME ONE Stop: 12/29/18 22:23 Last Admin: 12/29/18 21:12 Dose: 25 mls/hr Lactated Ringer's (Ringers, Lactated) 1,000 mls @ 999 mls/hr IV ONETIME ONE Stop: 12/29/18 21:37 Last Admin: 12/29/18 21:12 Dose: 999 mls/hr Lactated Ringer's (Ringers, Lactated) 1,000 mls @ 125 mls/hr IV ASDIRECTED [facility] Stop: 12/30/18 06:00 Last Admin: 12/30/18 07:12 Dose: 125 mls/hr Lactated Ringer's (Ringers, Lactated) 1,000 mls @ 999 mls/hr IV .BOLUS ONE Stop: 12/30/18 05:34 Last Admin: 12/30/18 04:35 Dose: 999 mls/hr
[2018-12-30] MEDS ORDERED: Aspirin 81 MG Tab.Chew PO ONE (08:00)
[2018-12-30] MEDS ORDERED: Gadobenate Dimeglumine 529 MG/ML 15 ML SDV IVPUSH ONE (08:01)
[2018-12-30] MEDS: Sodium Chloride 0.9% 10 ML Syringe FLUSH PRN (08:31)
[2018-12-30] MEDS: Potassium Chloride 20 MEQ Tab.ER PO SCH ×2 (09:24→20:12)
--- NOTE | 2018-12-30 10:02 | MR ---
MRI brain (with and without contrast) Technique: T1 and T2 FLAIR sagittal; diffusion, T2, FLAIR, and T1 axial; post-gadolinium T1 axial and post-gadolinium T1 fat-suppressed coronal; post gadolinium FLAIR coronal images were also obtained through the brain. Gradient echo axial and coronal images were also obtained. Comparison: Prior head CT study of 12/29/18. Findings: Ventricles along with basal cisterns and sulci over the convexities are moderately prominent. Normal signal void is seen within the major cerebral arteries within the skull base. Areas of increased signal are seen within the periventricular and subcortical white matter compatible with small vessel ischemic demyelination change. Old white matter infarcts are seen within the posterior right basal ganglia and within the periventricular white matter within the right parietal region. Small area of diffusion abnormality is noted within the left periventricular white matter within the parietal region. This diffusion abnormality measures approximately 1.6 cm in size and correlates to an area of increased signal on the long TR sequence images compatible with small and fairly acute white matter infarct. This appears nonreversible. No other diffusion abnormalities are seen. No midline shift or mass effect is seen. No abnormal areas of enhancement are seen. Paranasal sinuses are clear. Impression: 1. Small fairly acute white matter infarct is noted within the posterior left parietal region. 2. Senescent change as noted above. 3. No abnormal enhancement is seen. Diagnostic code #3
--- NOTE | 2018-12-30 14:00 | US ---
Carotid ultrasound: Multiple real-time images were obtained. Plaque: Moderate amount of calcified plaque scattered within the distal common carotid arteries and carotid bulb as well as origins of the external and internal carotid arteries. Comparison: No previous carotid imaging. Findings: Velocity measurements: Right side: CCA has a peak systolic velocity of 1.07 m/s. ICA has a peak systolic velocity of 1.23 m/s and peak end-diastolic velocity of 0.20 m/s. ECA has a peak systolic velocity of 1.39 m/s. Vertebral artery has a peak systolic velocity of 1.07 m/s. ICA/CCA ratio is 1.15. Left side: CCA has a peak systolic velocity of 0.88 m/s. ICA has a peak systolic velocity of 0.76 m/s and peak end-diastolic velocity of 0.18 m/s. ECA has a peak systolic velocity of 1.05 m/s. Vertebral artery has a peak systolic velocity of 0.53 m/s. ICA/CCA ratio is 0.9. Impression: 1. Moderate amount of calcified plaque as noted above. 2. Velocity measurements within both internal carotid arteries correspond to stenosis in the range of 1-49%. Diagnostic code #3
--- NOTE | 2018-12-30 18:19 | PCM.PN ---
- General Info Date of Service: 12/30/18 Subjective Update: Patient has an elevated Tn, will perform serial studies; this is in the setting of a CVA; Continue ASA, plavix to be started. Clarify aggressiveness of care desired by the patient. Functional Status: Reports: Pain Controlled, Tolerating Diet, Ambulating, Urinating - Review of Systems General: Reports: Weakness HEENT: Reports: No Symptoms Pulmonary: Reports: No Symptoms Cardiovascular: Reports: No Symptoms Gastrointestinal: Reports: No Symptoms Genitourinary: Reports: No Symptoms Musculoskeletal: Reports: No Symptoms Skin: Reports: No Symptoms Neurological: Reports: Pre-Existing Deficit, Weakness Psychiatric: Reports: Depression - Patient Data Vitals - Most Recent: Last Vital Signs Temp 36.9 C 12/30/18 16:02 Pulse 66 12/30/18 16:02 Resp 14 12/30/18 16:02 BP 164/74 H 12/30/18 16:04 Pulse Ox 97 12/30/18 16:02 Weight - Most Recent: 58.967 kg I&O - Last 24 Hours: Intake & Output 12/30/18 12/30/18 12/30/18 06:59 14:59 22:59 Intake Total 2732 120 400 Output Total 200 350 Balance 2532 120 50 Lab Results Last 24 Hours: Laboratory Results - last 24 hr 12/29/18 12/29/18 12/29/18 Range/Units 16:35 17:47 17:47 WBC (4.23-9.07) K/mm3 RBC (4.63-6.08) M/mm3 Hgb (13.7-17.5) gm/L Hct (40.1-51.0) % MCV (79.0-92.2) fl MCH (25.7-32.2) pg MCHC (32.2-35.5) g/dl RDW Std Deviation (35.1-43.9) fL Plt Count (163-337) K/mm3 MPV (9.4-12.3) fl Neut % (Auto) (34.0-67.9) % Lymph % (Auto) (21.8-53.1) % [place] % (Auto) (5.3-12.2) % Eos % (Auto) (0.8-7.0) Baso % (Auto) (0.1-1.2) % Neut # (Auto) (1.78-5.38) K/mm3 Lymph # (Auto) (1.32-3.57) K/mm3 [place] # (Auto) (0.30-0.82) K/mm3 Eos # (Auto) (0.04-0.54) K/mm3 Baso # (Auto) (0.01-0.08) K/mm3 Sodium (136-145) mEq/L Potassium (3.5-5.1) mEq/L Chloride (98-107) mEq/L Carbon Dioxide (21-32) mEq/L Anion Gap (5-15) BUN (7-18) mg/dL Creatinine (0.7-1.3) mg/dL Est Cr Clr Drug Dosing mL/min Estimated GFR (MDRD) (>60) mL/min BUN/Creatinine Ratio (14-18) Glucose (83-115) mg/dL Lactic Acid (0.4-2.0) mmol/L Calcium (8.5-10.1) mg/dL Magnesium 1.9 (1.8-2.4) mg/dl CK-MB (CK-2) (0-3.6) ng/ml Troponin I (0.00-0.056) ng/mL C-Reactive Protein (<1.0) mg/dL Prostate Specific Ag (0.1-4.0) ng/mL Urine Color Yellow (Yellow) Urine Appearance Clear (Clear) Urine pH 6.0 (5.0-8.0) Ur Specific [place] 1.025 (1.005-1.030) Urine Protein 1+ H (Negative) Urine Glucose (UA) Negative (Negative) Urine Ketones Trace H (Negative) Urine Occult Blood Negative (Negative) Urine Nitrite Negative (Negative) Urine Bilirubin 1+ H (Negative) Urine Urobilinogen 0.2 (0.2-1.0) Ur Leukocyte Esterase Negative (Negative) Urine RBC 0-5 (0-5) /hpf Urine WBC 0-5 (0-5) /hpf Ur Epithelial Cells 0-5 (0-5) /hpf Urine Bacteria Rare (FEW) /hpf Urine Mucus Not seen (FEW) /hpf Urine Opiates Screen Negative (CCUOBV=450) Ur Buprenorphine Scrn Negative (CUTOFF=10) Ur Oxycodone Screen Negative (CZM3TO=565) Urine Methadone Screen Negative (NYG1MP=212) Ur Propoxyphene Screen Negative (ZFQSIQ=699) Ur Barbiturates Screen Negative (OZTURN=244) Ur Tricyclics Screen Negative (LXHOPI=173) Ur Phencyclidine Scrn Negative (CUTOFF=25) Ur Amphetamine Screen Negative (OBCBLJ=699) U Methamphetamines Scrn Negative (FASUSR=392) U Benzodiazepines Scrn Negative (OYMXEX=011) U Cocaine Metab Screen Negative (MJPKNR=691) U Marijuana (THC) Screen Negative (CUTOFF=50) 12/30/18 12/30/18 12/30/18 Range/Units 06:05 06:05 06:05 WBC 8.70 (4.23-9.07) K/mm3 RBC 3.22 L (4.63-6.08) M/mm3 Hgb 9.5 L (13.7-17.5) gm/L Hct 29.1 L (40.1-51.0) % MCV 90.4 (79.0-92.2) fl MCH 29.5 (25.7-32.2) pg MCHC 32.6 (32.2-35.5) g/dl RDW Std Deviation 44.0 H (35.1-43.9) fL Plt Count 201 (163-337) K/mm3 MPV 11.0 (9.4-12.3) fl Neut % (Auto) 72.0 H (34.0-67.9) % Lymph % (Auto) 21.0 L (21.8-53.1) % [place] % (Auto) 6.0 (5.3-12.2) % Eos % (Auto) 0.6 L (0.8-7.0) Baso % (Auto) 0.3 (0.1-1.2) % Neut # (Auto) 6.26 H (1.78-5.38) K/mm3 Lymph # (Auto) 1.83 (1.32-3.57) K/mm3 [place] # (Auto) 0.52 (0.30-0.82) K/mm3 Eos # (Auto) 0.05 (0.04-0.54) K/mm3 Baso # (Auto) 0.03 (0.01-0.08) K/mm3 Sodium 143 (136-145) mEq/L Potassium 3.3 L (3.5-5.1) mEq/L Chloride 107 (98-107) mEq/L Carbon Dioxide 27 (21-32) mEq/L Anion Gap 12.3 (5-15) BUN 34 H (7-18) mg/dL Creatinine 0.9 (0.7-1.3) mg/dL Est Cr Clr Drug Dosing 59.36 mL/min Estimated GFR (MDRD) > 60 (>60) mL/min BUN/Creatinine Ratio 37.8 H (14-18) Glucose 91 (83-115) mg/dL Lactic Acid (0.4-2.0) mmol/L Calcium 7.9 L (8.5-10.1) mg/dL Magnesium 2.1 (1.8-2.4) mg/dl CK-MB (CK-2) (0-3.6) ng/ml Troponin I 0.557 H* (0.00-0.056) ng/mL C-Reactive Protein 6.4 H* (<1.0) mg/dL Prostate Specific Ag 12.7 H (0.1-4.0) ng/mL Urine Color (Yellow) Urine Appearance (Clear) Urine pH (5.0-8.0) Ur Specific [place] (1.005-1.030) Urine Protein (Negative) Urine Glucose (UA) (Negative) Urine Ketones (Negative) Urine Occult Blood (Negative) Urine Nitrite (Negative) Urine Bilirubin (Negative) Urine Urobilinogen (0.2-1.0) Ur Leukocyte Esterase (Negative) Urine RBC (0-5) /hpf Urine WBC (0-5) /hpf Ur Epithelial Cells (0-5) /hpf Urine Bacteria (FEW) /hpf Urine Mucus (FEW) /hpf Urine Opiates Screen (IQGLUT=493) Ur Buprenorphine Scrn (CUTOFF=10) Ur Oxycodone Screen (AXF4KG=369) Urine Methadone Screen (VCJ9CQ=395) Ur Propoxyphene Screen (TGQVCE=875) Ur Barbiturates Screen (GXVFLQ=332) Ur Tricyclics Screen (PHBABY=387) Ur Phencyclidine Scrn (CUTOFF=25) Ur Amphetamine Screen (KPSDEN=428) U Methamphetamines Scrn (ZLNAID=499) U Benzodiazepines Scrn (CKITFP=951) U Cocaine Metab Screen (AXHRMR=661) U Marijuana (THC) Screen (CUTOFF=50) 12/30/18 12/30/18 Range/Units 06:05 10:27 WBC (4.23-9.07) K/mm3 RBC (4.63-6.08) M/mm3 Hgb (13.7-17.5) gm/L Hct (40.1-51.0) % MCV (79.0-92.2) fl MCH (25.7-32.2) pg MCHC (32.2-35.5) g/dl RDW Std Deviation (35.1-43.9) fL Plt Count (163-337) K/mm3 MPV (9.4-12.3) fl Neut % (Auto) (34.0-67.9) % Lymph % (Auto) (21.8-53.1) % [place] % (Auto) (5.3-12.2) % Eos % (Auto) (0.8-7.0) Baso % (Auto) (0.1-1.2) % Neut # (Auto) (1.78-5.38) K/mm3 Lymph # (Auto) (1.32-3.57) K/mm3 [place] # (Auto) (0.30-0.82) K/mm3 Eos # (Auto) (0.04-0.54) K/mm3 Baso # (Auto) (0.01-0.08) K/mm3 Sodium (136-145) mEq/L Potassium (3.5-5.1) mEq/L Chloride (98-107) mEq/L Carbon Dioxide (21-32) mEq/L Anion Gap (5-15) BUN (7-18) mg/dL Creatinine (0.7-1.3) mg/dL Est Cr Clr Drug Dosing mL/min Estimated GFR (MDRD) (>60) mL/min BUN/Creatinine Ratio (14-18) Glucose (83-115) mg/dL Lactic Acid 0.5 (0.4-2.0) mmol/L Calcium (8.5-10.1) mg/dL Magnesium (1.8-2.4) mg/dl CK-MB (CK-2) 1.6 (0-3.6) ng/ml Troponin I 0.423 H* (0.00-0.056) ng/mL C-Reactive Protein (<1.0) mg/dL Prostate Specific Ag (0.1-4.0) ng/mL Urine Color (Yellow) Urine Appearance (Clear) Urine pH (5.0-8.0) Ur Specific [place] (1.005-1.030) Urine Protein (Negative) Urine Glucose (UA) (Negative) Urine Ketones (Negative) Urine Occult Blood (Negative) Urine Nitrite (Negative) Urine Bilirubin (Negative) Urine Urobilinogen (0.2-1.0) Ur Leukocyte Esterase (Negative) Urine RBC (0-5) /hpf Urine WBC (0-5) /hpf Ur Epithelial Cells (0-5) /hpf Urine Bacteria (FEW) /hpf Urine Mucus (FEW) /hpf Urine Opiates Screen (GRXHKQ=737) Ur Buprenorphine Scrn (CUTOFF=10) Ur Oxycodone Screen (ODM8MT=802) Urine Methadone Screen (YKG6AC=505) Ur Propoxyphene Screen (ZCTOBZ=817) Ur Barbiturates Screen (LOJTCS=449) Ur Tricyclics Screen (IRGUZX=067) Ur Phencyclidine Scrn (CUTOFF=25) Ur Amphetamine Screen (FWBDKD=678) U Methamphetamines Scrn (DECYLT=603) U Benzodiazepines Scrn (DVWBMP=722) U Cocaine Metab Screen (NBSVDJ=204) U Marijuana (THC) Screen (CUTOFF=50) Med Orders - Current: Current Medications Enoxaparin Sodium (Lovenox) 40 mg SUBCUT Q24H [facility] Last Admin: 12/29/18 21:11 Dose: 40 mg Potassium Chloride (Klor-Con M20) 40 meq PO BID ADELINA Stop: 12/31/18 09:01 Last Admin: 12/30/18 09:24 Dose: 40 meq Sodium Chloride (Saline Flush) 10 ml FLUSH ASDIRECTED PRN PRN Reason: Keep Vein Open Last Admin: 12/29/18 16:28 Dose: 10 ml Discontinued Medications Aspirin (Aspirin) 324 mg PO ONETIME ONE Stop: 12/30/18 08:01 Last Admin: 12/30/18 09:24 Dose: 324 mg Bisacodyl (Dulcolax) 10 mg RECTAL ONETIME ONE Stop: 12/30/18 06:31 Last Admin: 12/30/18 09:23 Dose: Not Given Gadobenate Dimeglumine (Multihance) 12 ml IVPUSH ONETIME ONE Stop: 12/30/18 08:02 Last Admin: 12/30/18 08:30 Dose: 12 ml Potassium Chloride/Sodium Chloride (Normal Saline With 20 Meq Kcl) 1,000 mls @ 150 mls/hr IV ASDIRECTED [facility] Last Admin: 12/29/18 18:03 Dose: 150 mls/hr Sodium Chloride (Normal Saline) 1,000 mls @ 999 mls/hr IV ONETIME ONE Stop: 12/29/18 21:20 Last Admin: 12/29/18 21:25 Dose: Not Given Magnesium Sulfate 2 gm/ Premix 50 mls @ 25 mls/hr IV ONETIME ONE Stop: 12/29/18 22:23 Last Admin: 12/29/18 21:12 Dose: 25 mls/hr Lactated Ringer's (Ringers, Lactated) 1,000 mls @ 999 mls/hr IV ONETIME ONE Stop: 12/29/18 21:37 Last Admin: 12/29/18 21:12 Dose: 999 mls/hr Lactated Ringer's (Ringers, Lactated) 1,000 mls @ 125 mls/hr IV ASDIRECTED [facility] Stop: 12/30/18 06:00 Last Admin: 12/30/18 07:12 Dose: 125 mls/hr Lactated Ringer's (Ringers, Lactated) 1,000 mls @ 999 mls/hr IV .BOLUS ONE Stop: 12/30/18 05:34 Last Admin: 12/30/18 04:35 Dose: 999 mls/hr Sodium Chloride (Saline Flush) 10 ml FLUSH ONETIME PRN PRN Reason: Keep Vein Open Stop: 12/30/18 12:00 Last Admin: 12/30/18 08:31 Dose: 10 ml - Exam Quality Assessment: DVT Prophylaxis General: Alert, Oriented, Cooperative, No Acute Distress HEENT: Pupils Equal, Pupils Reactive, EOMI Neck: Trachea Midline, No JVD Lungs: Normal Respiratory Effort, Decreased Breath Sounds Cardiovascular: Regular Rate, Regular Rhythm GI/Abdominal Exam: Normal Bowel Sounds, Soft, Non-Tender, No Organomegaly, No Distention (Male) Exam: Deferred Back Exam: Normal Inspection Extremities: Normal Inspection, Non-Tender, Normal Capillary Refill Skin: Warm Neurological: No New Focal Deficit, Normal Speech, Cranial Nerves Intact Psy/Mental Status: Alert, Depressed - Problem List & Annotations (1) Tobacco dependence SNOMED Code(s): 95207349 Code(s): F17.200 - NICOTINE DEPENDENCE, UNSPECIFIED, UNCOMPLICATED Status: Acute Current Visit: Yes (2) Prostate cancer SNOMED Code(s): 885684544 Code(s): C61 - MALIGNANT NEOPLASM OF PROSTATE Status: Acute Current Visit : Yes (3) Cerebrovascular accident (CVA) SNOMED Code(s): 786810211 Code(s): I63.9 - CEREBRAL INFARCTION, UNSPECIFIED Status: Acute Current Visit: Yes Qualifiers: CVA mechanism: unspecified Qualified Code(s): I63.9 - Cerebral infarction, unspecified (4) Hypokalemia SNOMED Code(s): 46237498 Code(s): E87.6 - HYPOKALEMIA Status: Acute Current Visit: Yes (5) Laceration of right upper arm SNOMED Code(s): 309973706 Code(s): S41.111A - LACERATION W/O FOREIGN BODY OF RIGHT UPPER ARM, INIT ENCNTR Status: Acute Current Visit: Yes Qualifiers: Encounter type: initial encounter Qualified Code(s): S41.111A - Laceration without foreign body of right upper arm, initial encounter (6) Suicidal ideation SNOMED Code(s): 9165401 Code(s): R45.851 - SUICIDAL IDEATIONS Status: Acute Current Visit: Yes - Problem List Review Problem List Initiated/Reviewed/Updated: Yes - My Orders Last 24 Hours: My Active Orders 12/29/18 19:39 EKG 12 Lead [EK] Routine 12/29/18 20:14 Head of Bed Elevation [RC] ASDIRECTED Neuro Check [RC] QSHIFT 12/29/18 20:22 Resuscitation Status Routine 12/29/18 20:23 Notify Provider Consults [RC] 08 12/29/18 21:00 Enoxaparin [Lovenox] 40 mg SUBCUT Q24H Potassium Chloride [Klor-Con M20] 40 meq PO BID 12/29/18 23:01 Consult to Speech Language Pathology [RESIDENT CARE SUPERVISOR Evaluation and Treatment] [CONS] Routine 12/30/18 05:43 EKG 12 Lead [EK] Routine 12/30/18 09:00 Consult to Physician [CONS] Routine 12/30/18 11:00 Consult to Occupational Therapy [OT Evaluation and Treatment] [CONS] Routine Consult to Physical Therapy [PT Evaluation and Treatment] [CONS] Routine 12/30/18 18:00 PRO B-TYPE NATRIUR PEPT,BNPPRO [CHEM] Routine TROPONIN I [CHEM] Routine 12/30/18 Lunch Heart Healthy Diet [DIET] 12/31/18 05:00 BASIC METABOLIC PANEL,BMP [CHEM] DAILY CBC WITH AUTO DIFF [HEME] DAILY CRP [C-REACTIVE PROTEIN] [CHEM] DAILY LACTIC ACID [CHEM] DAILY MAGNESIUM [CHEM] DAILY 01/01/19 05:00 BASIC METABOLIC PANEL,BMP [CHEM] DAILY CBC WITH AUTO DIFF [HEME] DAILY CRP [C-REACTIVE PROTEIN] [CHEM] DAILY LACTIC ACID [CHEM] DAILY MAGNESIUM [CHEM] DAILY 01/02/19 05:00 BASIC METABOLIC PANEL,BMP [CHEM] DAILY CBC WITH AUTO DIFF [HEME] DAILY CRP [C-REACTIVE PROTEIN] [CHEM] DAILY LACTIC ACID [CHEM] DAILY MAGNESIUM [CHEM] DAILY 01/03/19 05:00 BASIC METABOLIC PANEL,BMP [CHEM] DAILY CBC WITH AUTO DIFF [HEME] DAILY CRP [C-REACTIVE PROTEIN] [CHEM] DAILY LACTIC ACID [CHEM] DAILY MAGNESIUM [CHEM] DAILY - Plan Plan:: Impression: Suicidal ideation, history of end stage prostate cancer per patient report Scheduled for PET scan this week; CTX, Degarelix S/P bilateral extremity lacerations CVA, subacute with predominately right sided deficits; liberal BP mgt. Dehydration Hypokalemia Elevated WBCs, query reactive cf infectious Elevated Tn (demand ischemia cf ACS); follow up decreasing Tn; continue ASA Imaging, 12-30-18 (carotid, 2D echo, MRI); MRI small posterior parietal CVA Chronic HTN HLD Plan: IVF CVA protocol MRI re; mets and CVA. Bedside swallow evaluation Ischemic work up; ECG generalized ST depression, Sinus tach Lipid panel EMR from oncologist Psychiatric consult; re: depression with suicidal thoughts/gesture Nicotine replacement Full code status DVT prophylaxis
[2018-12-30] MEDS ORDERED: hydrALAZINE 20 MG/ML SDV IVPUSH PRN (19:22)
--- NOTE | 2018-12-30 19:29 | PCM.PN ---
- General Info Functional Status: Reports: Tolerating Diet, Urinating - Review of Systems General: Reports: Weakness HEENT: Reports: No Symptoms Pulmonary: Reports: No Symptoms Cardiovascular: Reports: No Symptoms Gastrointestinal: Reports: No Symptoms Genitourinary: Reports: No Symptoms Musculoskeletal: Reports: No Symptoms Skin: Reports: No Symptoms Neurological: Reports: Pre-Existing Deficit, Weakness Psychiatric: Reports: No Symptoms - Patient Data Vitals - Most Recent: Last Vital Signs Temp 36.9 C 12/30/18 16:02 Pulse 66 12/30/18 16:02 Resp 14 12/30/18 16:02 BP 164/74 H 12/30/18 16:04 Pulse Ox 97 12/30/18 16:02 Weight - Most Recent: 58.967 kg I&O - Last 24 Hours: Intake & Output 12/30/18 12/30/18 12/30/18 06:59 14:59 22:59 Intake Total 2732 120 700 Output Total 200 350 Balance 2532 120 350 Lab Results Last 24 Hours: Laboratory Results - last 24 hr 12/29/18 12/29/18 12/30/18 Range/Units 16:35 17:47 06:05 WBC (4.23-9.07) K/mm3 RBC (4.63-6.08) M/mm3 Hgb (13.7-17.5) gm/L Hct (40.1-51.0) % MCV (79.0-92.2) fl MCH (25.7-32.2) pg MCHC (32.2-35.5) g/dl RDW Std Deviation (35.1-43.9) fL Plt Count (163-337) K/mm3 MPV (9.4-12.3) fl Neut % (Auto) (34.0-67.9) % Lymph % (Auto) (21.8-53.1) % Hopkins % (Auto) (5.3-12.2) % Eos % (Auto) (0.8-7.0) Baso % (Auto) (0.1-1.2) % Neut # (Auto) (1.78-5.38) K/mm3 Lymph # (Auto) (1.32-3.57) K/mm3 Hopkins # (Auto) (0.30-0.82) K/mm3 Eos # (Auto) (0.04-0.54) K/mm3 Baso # (Auto) (0.01-0.08) K/mm3 Sodium (136-145) mEq/L Potassium (3.5-5.1) mEq/L Chloride (98-107) mEq/L Carbon Dioxide (21-32) mEq/L Anion Gap (5-15) BUN (7-18) mg/dL Creatinine (0.7-1.3) mg/dL Est Cr Clr Drug Dosing mL/min Estimated GFR (MDRD) (>60) mL/min BUN/Creatinine Ratio (14-18) Glucose (83-115) mg/dL Lactic Acid (0.4-2.0) mmol/L Calcium (8.5-10.1) mg/dL Magnesium 1.9 (1.8-2.4) mg/dl CK-MB (CK-2) (0-3.6) ng/ml Troponin I (0.00-0.056) ng/mL C-Reactive Protein (<1.0) mg/dL NT-Pro-B Natriuret Pep (0-450) pg/mL Prostate Specific Ag 12.7 H (0.1-4.0) ng/mL Urine Color Yellow (Yellow) Urine Appearance Clear (Clear) Urine pH 6.0 (5.0-8.0) Ur Specific Greene 1.025 (1.005-1.030) Urine Protein 1+ H (Negative) Urine Glucose (UA) Negative (Negative) Urine Ketones Trace H (Negative) Urine Occult Blood Negative (Negative) Urine Nitrite Negative (Negative) Urine Bilirubin 1+ H (Negative) Urine Urobilinogen 0.2 (0.2-1.0) Ur Leukocyte Esterase Negative (Negative) Urine RBC 0-5 (0-5) /hpf Urine WBC 0-5 (0-5) /hpf Ur Epithelial Cells 0-5 (0-5) /hpf Urine Bacteria Rare (FEW) /hpf Urine Mucus Not seen (FEW) /hpf 12/30/18 12/30/18 12/30/18 Range/Units 06:05 06:05 06:05 WBC 8.70 (4.23-9.07) K/mm3 RBC 3.22 L (4.63-6.08) M/mm3 Hgb 9.5 L (13.7-17.5) gm/L Hct 29.1 L (40.1-51.0) % MCV 90.4 (79.0-92.2) fl MCH 29.5 (25.7-32.2) pg MCHC 32.6 (32.2-35.5) g/dl RDW Std Deviation 44.0 H (35.1-43.9) fL Plt Count 201 (163-337) K/mm3 MPV 11.0 (9.4-12.3) fl Neut % (Auto) 72.0 H (34.0-67.9) % Lymph % (Auto) 21.0 L (21.8-53.1) % Hopkins % (Auto) 6.0 (5.3-12.2) % Eos % (Auto) 0.6 L (0.8-7.0) Baso % (Auto) 0.3 (0.1-1.2) % Neut # (Auto) 6.26 H (1.78-5.38) K/mm3 Lymph # (Auto) 1.83 (1.32-3.57) K/mm3 Hopkins # (Auto) 0.52 (0.30-0.82) K/mm3 Eos # (Auto) 0.05 (0.04-0.54) K/mm3 Baso # (Auto) 0.03 (0.01-0.08) K/mm3 Sodium 143 (136-145) mEq/L Potassium 3.3 L (3.5-5.1) mEq/L Chloride 107 (98-107) mEq/L Carbon Dioxide 27 (21-32) mEq/L Anion Gap 12.3 (5-15) BUN 34 H (7-18) mg/dL Creatinine 0.9 (0.7-1.3) mg/dL Est Cr Clr Drug Dosing 59.36 mL/min Estimated GFR (MDRD) > 60 (>60) mL/min BUN/Creatinine Ratio 37.8 H (14-18) Glucose 91 (83-115) mg/dL Lactic Acid 0.5 (0.4-2.0) mmol/L Calcium 7.9 L (8.5-10.1) mg/dL Magnesium 2.1 (1.8-2.4) mg/dl CK-MB (CK-2) (0-3.6) ng/ml Troponin I 0.557 H* (0.00-0.056) ng/mL C-Reactive Protein 6.4 H* (<1.0) mg/dL NT-Pro-B Natriuret Pep (0-450) pg/mL Prostate Specific Ag (0.1-4.0) ng/mL Urine Color (Yellow) Urine Appearance (Clear) Urine pH (5.0-8.0) Ur Specific Greene (1.005-1.030) Urine Protein (Negative) Urine Glucose (UA) (Negative) Urine Ketones (Negative) Urine Occult Blood (Negative) Urine Nitrite (Negative) Urine Bilirubin (Negative) Urine Urobilinogen (0.2-1.0) Ur Leukocyte Esterase (Negative) Urine RBC (0-5) /hpf Urine WBC (0-5) /hpf Ur Epithelial Cells (0-5) /hpf Urine Bacteria (FEW) /hpf Urine Mucus (FEW) /hpf 12/30/18 12/30/18 12/30/18 Range/Units 10:27 18:00 18:00 WBC (4.23-9.07) K/mm3 RBC (4.63-6.08) M/mm3 Hgb (13.7-17.5) gm/L Hct (40.1-51.0) % MCV (79.0-92.2) fl MCH (25.7-32.2) pg MCHC (32.2-35.5) g/dl RDW Std Deviation (35.1-43.9) fL Plt Count (163-337) K/mm3 MPV (9.4-12.3) fl Neut % (Auto) (34.0-67.9) % Lymph % (Auto) (21.8-53.1) % Hopkins % (Auto) (5.3-12.2) % Eos % (Auto) (0.8-7.0) Baso % (Auto) (0.1-1.2) % Neut # (Auto) (1.78-5.38) K/mm3 Lymph # (Auto) (1.32-3.57) K/mm3 Hopkins # (Auto) (0.30-0.82) K/mm3 Eos # (Auto) (0.04-0.54) K/mm3 Baso # (Auto) (0.01-0.08) K/mm3 Sodium (136-145) mEq/L Potassium (3.5-5.1) mEq/L Chloride (98-107) mEq/L Carbon Dioxide (21-32) mEq/L Anion Gap (5-15) BUN (7-18) mg/dL Creatinine (0.7-1.3) mg/dL Est Cr Clr Drug Dosing mL/min Estimated GFR (MDRD) (>60) mL/min BUN/Creatinine Ratio (14-18) Glucose (83-115) mg/dL Lactic Acid (0.4-2.0) mmol/L Calcium (8.5-10.1) mg/dL Magnesium (1.8-2.4) mg/dl CK-MB (CK-2) 1.6 (0-3.6) ng/ml Troponin I 0.423 H* 0.369 H* (0.00-0.056) ng/mL C-Reactive Protein (<1.0) mg/dL NT-Pro-B Natriuret Pep 2473 H (0-450) pg/mL Prostate Specific Ag (0.1-4.0) ng/mL Urine Color (Yellow) Urine Appearance (Clear) Urine pH (5.0-8.0) Ur Specific Greene (1.005-1.030) Urine Protein (Negative) Urine Glucose (UA) (Negative) Urine Ketones (Negative) Urine Occult Blood (Negative) Urine Nitrite (Negative) Urine Bilirubin (Negative) Urine Urobilinogen (0.2-1.0) Ur Leukocyte Esterase (Negative) Urine RBC (0-5) /hpf Urine WBC (0-5) /hpf Ur Epithelial Cells (0-5) /hpf Urine Bacteria (FEW) /hpf Urine Mucus (FEW) /hpf Med Orders - Current: Current Medications Aspirin (Ecotrin) 325 mg PO DAILY [facility] Enoxaparin Sodium (Lovenox) 40 mg SUBCUT Q24H [facility] Last Admin: 12/29/18 21:11 Dose: 40 mg Furosemide (Lasix) 20 mg IVPUSH ONETIME ONE Stop: 12/31/18 09:01 Hydralazine HCl (Apresoline) 10 mg IVPUSH Q8H PRN PRN Reason: Hypertension Potassium Chloride (Klor-Con M20) 40 meq PO BID [facility] Stop: 12/31/18 09:01 Last Admin: 12/30/18 09:24 Dose: 40 meq Sodium Chloride (Saline Flush) 10 ml FLUSH ASDIRECTED PRN PRN Reason: Keep Vein Open Last Admin: 12/29/18 16:28 Dose: 10 ml Discontinued Medications Aspirin (Aspirin) 324 mg PO ONETIME ONE Stop: 12/30/18 08:01 Last Admin: 12/30/18 09:24 Dose: 324 mg Bisacodyl (Dulcolax) 10 mg RECTAL ONETIME ONE Stop: 12/30/18 06:31 Last Admin: 12/30/18 09:23 Dose: Not Given Gadobenate Dimeglumine (Multihance) 12 ml IVPUSH ONETIME ONE Stop: 12/30/18 08:02 Last Admin: 12/30/18 08:30 Dose: 12 ml Potassium Chloride/Sodium Chloride (Normal Saline With 20 Meq Kcl) 1,000 mls @ 150 mls/hr IV ASDIRECTED [facility] Last Admin: 12/29/18 18:03 Dose: 150 mls/hr Sodium Chloride (Normal Saline) 1,000 mls @ 999 mls/hr IV ONETIME ONE Stop: 12/29/18 21:20 Last Admin: 12/29/18 21:25 Dose: Not Given Magnesium Sulfate 2 gm/ Premix 50 mls @ 25 mls/hr IV ONETIME ONE Stop: 12/29/18 22:23 Last Admin: 12/29/18 21:12 Dose: 25 mls/hr Lactated Ringer's (Ringers, Lactated) 1,000 mls @ 999 mls/hr IV ONETIME ONE Stop: 12/29/18 21:37 Last Admin: 12/29/18 21:12 Dose: 999 mls/hr Lactated Ringer's (Ringers, Lactated) 1,000 mls @ 125 mls/hr IV ASDIRECTED [facility] Stop: 12/30/18 06:00 Last Admin: 12/30/18 07:12 Dose: 125 mls/hr Lactated Ringer's (Ringers, Lactated) 1,000 mls @ 999 mls/hr IV .BOLUS ONE Stop: 12/30/18 05:34 Last Admin: 12/30/18 04:35 Dose: 999 mls/hr Sodium Chloride (Saline Flush) 10 ml FLUSH ONETIME PRN PRN Reason: Keep Vein Open Stop: 12/30/18 12:00 Last Admin: 12/30/18 08:31 Dose: 10 ml - Exam Quality Assessment: DVT Prophylaxis General: Alert, Oriented, Cooperative, No Acute Distress HEENT: Pupils Equal, Pupils Reactive, EOMI Neck: Trachea Midline, No JVD Lungs: Normal Respiratory Effort Cardiovascular: Regular Rate, Regular Rhythm GI/Abdominal Exam: Normal Bowel Sounds, Soft, Non-Tender, No Organomegaly, No Distention (Male) Exam: Deferred Back Exam: Normal Inspection Extremities: Normal Inspection, Non-Tender, Normal Capillary Refill Skin: Warm Neurological: No New Focal Deficit, Normal Speech, Cranial Nerves Intact Psy/Mental Status: Alert, Depressed - Problem List & Annotations (1) Tobacco dependence SNOMED Code(s): 21330147 Code(s): F17.200 - NICOTINE DEPENDENCE, UNSPECIFIED, UNCOMPLICATED Status: Acute Current Visit: Yes (2) Prostate cancer SNOMED Code(s): 672934249 Code(s): C61 - MALIGNANT NEOPLASM OF PROSTATE Status: Acute Current Visit : Yes (3) Cerebrovascular accident (CVA) SNOMED Code(s): 787087297 Code(s): I63.9 - CEREBRAL INFARCTION, UNSPECIFIED Status: Acute Current Visit: Yes Qualifiers: CVA mechanism: unspecified Qualified Code(s): I63.9 - Cerebral infarction, unspecified (4) Hypokalemia SNOMED Code(s): 68407521 Code(s): E87.6 - HYPOKALEMIA Status: Acute Current Visit: Yes (5) Laceration of right upper arm SNOMED Code(s): 467035306 Code(s): S41.111A - LACERATION W/O FOREIGN BODY OF RIGHT UPPER ARM, INIT ENCNTR Status: Acute Current Visit: Yes Qualifiers: Encounter type: initial encounter Qualified Code(s): S41.111A - Laceration without foreign body of right upper arm, initial encounter (6) Suicidal ideation SNOMED Code(s): 0684357 Code(s): R45.851 - SUICIDAL IDEATIONS Status: Acute Current Visit: Yes - Problem List Review Problem List Initiated/Reviewed/Updated: Yes - My Orders Last 24 Hours: My Active Orders 12/29/18 19:39 EKG 12 Lead [EK] Routine 12/29/18 20:14 Head of Bed Elevation [RC] ASDIRECTED Neuro Check [RC] QSHIFT 12/29/18 20:22 Resuscitation Status Routine 12/29/18 20:23 Notify Provider Consults [RC] 08 12/29/18 21:00 Enoxaparin [Lovenox] 40 mg SUBCUT Q24H Potassium Chloride [Klor-Con M20] 40 meq PO BID 12/29/18 23:01 Consult to Speech Language Pathology [PH[employer]ICIAN [employer]GER Evaluation and Treatment] [CONS] Routine 12/30/18 05:43 EKG 12 Lead [EK] Routine 12/30/18 09:00 Consult to Physician [CONS] Routine 12/30/18 11:00 Consult to Occupational Therapy [OT Evaluation and Treatment] [CONS] Routine Consult to Physical Therapy [PT Evaluation and Treatment] [CONS] Routine 12/30/18 18:28 Up With Assistance [RC] ASDIRECTED 12/30/18 19:22 hydrALAZINE [Apresoline] 10 mg IVPUSH Q8H PRN 12/30/18 Lunch Heart Healthy Diet [DIET] 12/31/18 05:00 BASIC METABOLIC PANEL,BMP [CHEM] DAILY CBC WITH AUTO DIFF [HEME] DAILY CRP [C-REACTIVE PROTEIN] [CHEM] DAILY LACTIC ACID [CHEM] DAILY LIPID PANEL [CHEM] Routine MAGNESIUM [CHEM] DAILY 12/31/18 09:00 Aspirin [Ecotrin] 325 mg PO DAILY Furosemide [Lasix] 20 mg IVPUSH ONETIME ONE 01/01/19 05:00 BASIC METABOLIC PANEL,BMP [CHEM] DAILY CBC WITH AUTO DIFF [HEME] DAILY CRP [C-REACTIVE PROTEIN] [CHEM] DAILY LACTIC ACID [CHEM] DAILY MAGNESIUM [CHEM] DAILY 01/02/19 05:00 BASIC METABOLIC PANEL,BMP [CHEM] DAILY CBC WITH AUTO DIFF [HEME] DAILY CRP [C-REACTIVE PROTEIN] [CHEM] DAILY LACTIC ACID [CHEM] DAILY MAGNESIUM [CHEM] DAILY 01/03/19 05:00 BASIC METABOLIC PANEL,BMP [CHEM] DAILY CBC WITH AUTO DIFF [HEME] DAILY CRP [C-REACTIVE PROTEIN] [CHEM] DAILY LACTIC ACID [CHEM] DAILY MAGNESIUM [CHEM] DAILY - Plan Plan:: Impression: Suicidal ideation, history of end stage prostate cancer per patient report Scheduled for PET scan this week; CTX, Degarelix S/P bilateral extremity lacerations CVA, subacute with predominately right sided deficits; liberal BP mgt. Dehydration Hypokalemia Elevated WBCs, query reactive cf infectious Elevated Tn (demand ischemia cf ACS) Imaging, 12-30-18 (carotid, 2D echo, MRI), acute CVA noted Chronic HTN HLD Plan: IVF CVA protocol MRI re; mets and CVA. Bedside swallow evaluation Ischemic work up; ECG generalized ST depression, Sinus tach Lipid panel EMR from oncologist Psychiatric consult; re: depression with suicidal thoughts/gesture Nicotine replacement Full code status DVT prophylaxis
[2018-12-30] MEDS: Enoxaparin 40 MG/0.4 ML Syringe SUBCUT SCH (20:12)
[2018-12-31] MEDS ORDERED: Ondansetron 4 MG/2 ML SDV IVPUSH PRN (01:27)
[2018-12-31] MEDS ORDERED: Aluminum Hydroxide/Magnesium Hydroxide/Simethicone Susp 30 ML Cup PO PRN (02:37)
[2018-12-31] MEDS ORDERED: Scopolamine 1.5 MG Transdermal Patch TRDERM PRN (04:06)
[2018-12-31] MEDS ORDERED: Metoclopramide 10 MG/2 ML SDV IVPUSH PRN (05:00)
[2018-12-31] MEDS ORDERED: Scopolamine 1.5 MG Transdermal Patch TOP ONE (08:00)
[2018-12-31] MEDS: Calcium Carbonate 500 MG Tab.Chew PO PRN ×2 (08:30→08:52)
[2018-12-31] MEDS: Aspirin 325 MG Tab.EC PO SCH ×2 (08:51→09:35)
[2018-12-31] MEDS ORDERED: Furosemide 20 MG/2 ML VIAL IVPUSH ONE (09:00)
[2018-12-31] MEDS: FLUoxetine 20 MG Cap PO SCH (10:21)
[2018-12-31] MEDS ORDERED: Pantoprazole 40 MG Vial IVPUSH ONE (11:00)
[2018-12-31] MEDS ORDERED: LORazepam 2 MG/ML SDV IVPUSH PRN (11:04)
--- NOTE | 2018-12-31 11:04 | PCM.PN ---
- General Info Date of Service: 12/31/18 Admission Dx/Problem (Free Text): Admission Diagnosis/Problem Admission Diagnosis/Problem CVA, Cerebrovascular accident Subjective Update: In to see Jerry. We had a very josé manuel discussion about his suicidal ideation. He reports after strokelike symptoms. He thought it would be easier to end it all. He does not have any current suicidal ideation. He was asked point-blank if he were to discharge tomorrow if he would go home and attempt suicide to which he responded no. He has been working with PT and OT. He does have sensation in his right arm but no movement as of yet. He does have weakness in his right leg however sensation is intact and he is able to ambulate. He has been having nausea and vomiting today. Workup was done including a lipase which was normal. CMP was also performed with no transaminitis noted. Scopolamine patch, Reglan and Zofran were given with relief this afternoon. CT scan of the abdomen and pelvis was obtained showing "1. Small right-sided pleural effusion and trace left-sided pleural effusion. 2. Linear scarring within both lung bases as well as emphysematous change. 3. Mild inflammatory change within the right upper abdomen which appears to have its epicenter round- the-clock diverticulum suspicious for mild diverticulitis. 4. Soft tissue density within dilated duodenum. As mentioned above uncertain if this represents food material or represent intraluminal mass. Endoscopy could be performed for further evaluation. 5. Other incidental findings." Dr. Christiansen did see the patient and plan is for EGD tomorrow morning. He continues to be one-on-one. He did report that he drinks approximately 3 mixed drinks daily. This is increased from what he was telling us on initial admission. Due to this we will add C1 protocol and contact [facility] for consult. Have also started supplementation. Functional Status: Reports: Pain Controlled, Tolerating Diet, Ambulating (with walker ), Urinating. Denies: New Symptoms - Review of Systems General: Reports: Weakness, Fatigue. Denies: Fever, Malaise, Chills HEENT: Reports: No Symptoms. Denies: Headaches, Sore Throat Pulmonary: Reports: No Symptoms. Denies: Shortness of Breath, Pleuritic Chest Pain, Cough, Sputum Cardiovascular: Reports: No Symptoms. Denies: Chest Pain, Palpitations, Dyspnea on Exertion, Edema Gastrointestinal: Reports: Abdominal Pain, Nausea (improved in PM), Vomiting ( Improved in PM). Denies: Constipation, Diarrhea Genitourinary: Reports: No Symptoms. Denies: Pain Musculoskeletal: Reports: No Symptoms Skin: Reports: No Symptoms Neurological: Reports: No Symptoms, Difficulty Walking, Weakness, Gait Disturbance. Denies: Confusion, Dizziness, Headache, Seizure, Syncope, Tremors , Trouble Speaking, Change in Speech Psychiatric: Reports: Depression, Anxiety. Denies: Confusion, Agitation, Hallucinations, Suicidal Ideation, Homicidal Ideation - Patient Data Vitals - Most Recent: Last Vital Signs Temp 98.8 F 12/31/18 08:37 Pulse 87 12/31/18 08:37 Resp 16 12/31/18 08:37 BP 140/72 12/31/18 08:37 Pulse Ox 96 12/31/18 08:37 Weight - Most Recent: 133 lb 4.8 oz I&O - Last 24 Hours: Intake & Output 12/30/18 12/31/18 12/31/18 22:59 06:59 14:59 Intake Total 820 200 Output Total 350 650 Balance 470 -450 Lab Results Last 24 Hours: Laboratory Results - last 24 hr 12/30/18 12/30/18 12/30/18 Range/Units 10:27 18:00 18:00 WBC (4.23-9.07) K/mm3 RBC (4.63-6.08) M/mm3 Hgb (13.7-17.5) gm/L Hct (40.1-51.0) % MCV (79.0-92.2) fl MCH (25.7-32.2) pg MCHC (32.2-35.5) g/dl RDW Std Deviation (35.1-43.9) fL Plt Count (163-337) K/mm3 MPV (9.4-12.3) fl Neut % (Auto) (34.0-67.9) % Lymph % (Auto) (21.8-53.1) % [place] % (Auto) (5.3-12.2) % Eos % (Auto) (0.8-7.0) Baso % (Auto) (0.1-1.2) % Neut # (Auto) (1.78-5.38) K/mm3 Lymph # (Auto) (1.32-3.57) K/mm3 [place] # (Auto) (0.30-0.82) K/mm3 Eos # (Auto) (0.04-0.54) K/mm3 Baso # (Auto) (0.01-0.08) K/mm3 Sodium (136-145) mEq/L Potassium (3.5-5.1) mEq/L Chloride (98-107) mEq/L Carbon Dioxide (21-32) mEq/L Anion Gap (5-15) BUN (7-18) mg/dL Creatinine (0.7-1.3) mg/dL Est Cr Clr Drug Dosing mL/min Estimated GFR (MDRD) (>60) mL/min BUN/Creatinine Ratio (14-18) Glucose (83-115) mg/dL Lactic Acid (0.4-2.0) mmol/L Calcium (8.5-10.1) mg/dL Magnesium (1.8-2.4) mg/dl CK-MB (CK-2) 1.6 (0-3.6) ng/ml Troponin I 0.423 H* 0.369 H* (0.00-0.056) ng/mL C-Reactive Protein (<1.0) mg/dL NT-Pro-B Natriuret Pep 2473 H (0-450) pg/mL Triglycerides (<150) mg/dL Cholesterol (<200) mg/dL LDL Cholesterol Direct (<100) mg/dL HDL Cholesterol (40-59) mg/dL 12/31/18 12/31/18 12/31/18 Range/Units 05:07 05:07 05:07 WBC 9.79 H (4.23-9.07) K/mm3 RBC 3.05 L (4.63-6.08) M/mm3 Hgb 9.2 L (13.7-17.5) gm/L Hct 27.9 L (40.1-51.0) % MCV 91.5 (79.0-92.2) fl MCH 30.2 (25.7-32.2) pg MCHC 33.0 (32.2-35.5) g/dl RDW Std Deviation 44.9 H (35.1-43.9) fL Plt Count 270 (163-337) K/mm3 MPV 11.1 (9.4-12.3) fl Neut % (Auto) 81.9 H (34.0-67.9) % Lymph % (Auto) 12.7 L (21.8-53.1) % [place] % (Auto) 4.8 L (5.3-12.2) % Eos % (Auto) 0.2 L (0.8-7.0) Baso % (Auto) 0.1 (0.1-1.2) % Neut # (Auto) 8.02 H (1.78-5.38) K/mm3 Lymph # (Auto) 1.24 L (1.32-3.57) K/mm3 [place] # (Auto) 0.47 (0.30-0.82) K/mm3 Eos # (Auto) 0.02 L (0.04-0.54) K/mm3 Baso # (Auto) 0.01 (0.01-0.08) K/mm3 Sodium 143 (136-145) mEq/L Potassium 4.5 (3.5-5.1) mEq/L Chloride 109 H (98-107) mEq/L Carbon Dioxide 30 (21-32) mEq/L Anion Gap 8.5 (5-15) BUN 39 H (7-18) mg/dL Creatinine 0.9 (0.7-1.3) mg/dL Est Cr Clr Drug Dosing 57.33 mL/min Estimated GFR (MDRD) > 60 (>60) mL/min BUN/Creatinine Ratio 43.3 H (14-18) Glucose 154 H (83-115) mg/dL Lactic Acid 0.6 (0.4-2.0) mmol/L Calcium 8.2 L (8.5-10.1) mg/dL Magnesium 1.8 (1.8-2.4) mg/dl CK-MB (CK-2) (0-3.6) ng/ml Troponin I (0.00-0.056) ng/mL C-Reactive Protein 5.4 H* (<1.0) mg/dL NT-Pro-B Natriuret Pep (0-450) pg/mL Triglycerides 160 H (<150) mg/dL Cholesterol 135 (<200) mg/dL LDL Cholesterol Direct 75 (<100) mg/dL HDL Cholesterol 38.0 L (40-59) mg/dL Med Orders - Current: Current Medications Al Hydroxide/Mg Hydroxide (Mag-Al Plus) 30 ml PO Q4H PRN PRN Reason: Heartburn Last Admin: 12/31/18 02:47 Dose: 30 ml Aspirin (Ecotrin) 325 mg PO DAILY [facility] Last Admin: 12/31/18 09:35 Dose: Not Given Calcium Carbonate/Glycine (Tums) 500 mg PO Q2H PRN PRN Reason: Indigestion Last Admin: 12/31/18 08:30 Dose: 500 mg Enoxaparin Sodium (Lovenox) 40 mg SUBCUT Q24H [facility] Last Admin: 12/30/18 20:12 Dose: 40 mg Fluoxetine HCl (Prozac) 20 mg PO DAILY [facility] Last Admin: 12/31/18 10:21 Dose: 20 mg Hydralazine HCl (Apresoline) 10 mg IVPUSH Q8H PRN PRN Reason: Hypertension Lorazepam (Ativan) 0.5 mg PO BID [facility] Metoclopramide HCl (Reglan) 5 mg IVPUSH Q6H PRN PRN Reason: Nausea Last Admin: 12/31/18 05:07 Dose: 5 mg Miscellaneous Information (Remove Patch) 0 ea TRDERM ONETIME ONE Stop: 01/03/19 08:01 Ondansetron HCl (Zofran) 4 mg IVPUSH Q4H PRN PRN Reason: Nausea Last Admin: 12/31/18 01:34 Dose: 4 mg Pantoprazole Sodium (Protonix) 40 mg PO BIDAC [facility] Sodium Chloride (Saline Flush) 10 ml FLUSH ASDIRECTED PRN PRN Reason: Keep Vein Open Last Admin: 12/29/18 16:28 Dose: 10 ml Sucralfate (Carafate) 1 gm PO TIDAC [facility] Discontinued Medications Aspirin (Aspirin) 324 mg PO ONETIME ONE Stop: 12/30/18 08:01 Last Admin: 12/30/18 09:24 Dose: 324 mg Bisacodyl (Dulcolax) 10 mg RECTAL ONETIME ONE Stop: 12/30/18 06:31 Last Admin: 12/30/18 09:23 Dose: Not Given Furosemide (Lasix) 20 mg IVPUSH ONETIME ONE Stop: 12/31/18 09:01 Last Admin: 12/31/18 08:40 Dose: 20 mg Gadobenate Dimeglumine (Multihance) 12 ml IVPUSH ONETIME ONE Stop: 12/30/18 08:02 Last Admin: 12/30/18 08:30 Dose: 12 ml Potassium Chloride/Sodium Chloride (Normal Saline With 20 Meq Kcl) 1,000 mls @ 150 mls/hr IV ASDIRECTED [facility] Last Admin: 12/29/18 18:03 Dose: 150 mls/hr Sodium Chloride (Normal Saline) 1,000 mls @ 999 mls/hr IV ONETIME ONE Stop: 12/29/18 21:20 Last Admin: 12/29/18 21:25 Dose: Not Given Magnesium Sulfate 2 gm/ Premix 50 mls @ 25 mls/hr IV ONETIME ONE Stop: 12/29/18 22:23 Last Admin: 12/29/18 21:12 Dose: 25 mls/hr Lactated Ringer's (Ringers, Lactated) 1,000 mls @ 999 mls/hr IV ONETIME ONE Stop: 12/29/18 21:37 Last Admin: 12/29/18 21:12 Dose: 999 mls/hr Lactated Ringer's (Ringers, Lactated) 1,000 mls @ 125 mls/hr IV ASDIRECTED [facility] Stop: 12/30/18 06:00 Last Admin: 12/30/18 07:12 Dose: 125 mls/hr Lactated Ringer's (Ringers, Lactated) 1,000 mls @ 999 mls/hr IV .BOLUS ONE Stop: 12/30/18 05:34 Last Admin: 12/30/18 04:35 Dose: 999 mls/hr Pantoprazole Sodium (Protonix Iv) 40 mg IVPUSH ONETIME ONE Stop: 12/31/18 11:01 Potassium Chloride (Klor-Con M20) 40 meq PO BID [facility] Stop: 12/31/18 09:01 Last Admin: 12/30/18 20:12 Dose: 40 meq Scopolamine (Transderm-Scop) 1.5 mg TRDERM Q72H PRN PRN Reason: Nausea/Vomiting Scopolamine (Transderm-Scop) 1.5 mg TOP ONETIME ONE Stop: 12/31/18 08:01 Last Admin: 12/31/18 08:38 Dose: 1.5 mg Sodium Chloride (Saline Flush) 10 ml FLUSH ONETIME PRN PRN Reason: Keep Vein Open Stop: 12/30/18 12:00 Last Admin: 12/30/18 08:31 Dose: 10 ml - Exam Quality Assessment: DVT Prophylaxis General: Alert, Oriented, Cooperative, No Acute Distress HEENT: Pupils Equal, Pupils Reactive, EOMI, Mucous Membr. Moist/[place] Neck: Supple, Trachea Midline, No JVD Lungs: Clear to Auscultation, Normal Respiratory Effort Cardiovascular: Regular Rate, Regular Rhythm GI/Abdominal Exam: Normal Bowel Sounds, Soft, Non-Tender, No Organomegaly, No Distention (Male) Exam: Deferred Back Exam: Normal Inspection, Full Range of Motion Extremities: Normal Inspection, Non-Tender, No Pedal Edema, Normal Capillary Refill, Limited Range of Motion (Unable to move right arm and decreased strength in right leg.) Peripheral Pulses: 3+: Radial (L), Radial (R), Dorsalis Pedis (L), Dorsalis Pedis (R) Skin: Warm, Dry, Intact Neurological: No New Focal Deficit, Normal Speech, Normal Tone, Sensation Intact. No: Normal Gait, Strength Equal Bilateral Psy/Mental Status: Alert, Anxious, Depressed. No: Labile Mood, Agitated, Suicidal Ideation, Homicidal Ideation, Hallucinations, Withdrawal Symptoms - Problem List & Annotations (1) Nausea & vomiting SNOMED Code(s): 25062421 Code(s): R11.2 - NAUSEA WITH VOMITING, UNSPECIFIED Status: Acute Priority : High Current Visit: Yes Qualifiers: Vomiting type: unspecified Vomiting Intractability: unspecified Qualified Code(s): R11.2 - Nausea with vomiting, unspecified (2) Cerebrovascular accident (CVA) SNOMED Code(s): 374921541 Code(s): I63.9 - CEREBRAL INFARCTION, UNSPECIFIED Status: Acute Priority : High Current Visit: Yes Qualifiers: CVA mechanism: unspecified Qualified Code(s): I63.9 - Cerebral infarction, unspecified (3) Hypokalemia SNOMED Code(s): 81019027 Code(s): E87.6 - HYPOKALEMIA Status: Acute Priority: High Current Visit : Yes (4) Laceration of right upper arm SNOMED Code(s): 486999303 Code(s): S41.111A - LACERATION W/O FOREIGN BODY OF RIGHT UPPER ARM, INIT ENCNTR Status: Acute Priority: High Current Visit: Yes Qualifiers: Encounter type: initial encounter Qualified Code(s): S41.111A - Laceration without foreign body of right upper arm, initial encounter (5) Prostate cancer SNOMED Code(s): 401033414 Code(s): C61 - MALIGNANT NEOPLASM OF PROSTATE Status: Acute Priority: High Current Visit: Yes (6) Suicidal ideation SNOMED Code(s): 0700835 Code(s): R45.851 - SUICIDAL IDEATIONS Status: Acute Priority: High Current Visit: Yes (7) Tobacco dependence SNOMED Code(s): 94814689 Code(s): F17.200 - NICOTINE DEPENDENCE, UNSPECIFIED, UNCOMPLICATED Status: Acute Priority: High Current Visit: Yes - Problem List Review Problem List Initiated/Reviewed/Updated: Yes - My Orders Last 24 Hours: My Active Orders 12/31/18 08:02 Calcium Carbonate [Tums] 500 mg PO Q2H PRN 12/31/18 11:00 Sucralfate [Carafate] 1 gm PO TIDAC 12/31/18 11:01 Abdomen Pelvis w wo Cont [CT] Routine 12/31/18 11:02 Consult for Substance Abuse [CONS] Routine 12/31/18 11:15 Lactated Ringers @ 100 MLS/HR(1000ml Bag) Lactated Ringers [Ringers, Lactated] 1 ,000 ml IV ASDIRECTED 12/31/18 16:00 Pantoprazole [ProTONIX] 40 mg PO BIDAC 01/03/19 08:00 Remove Patch 0 ea TRDERM ONETIME ONE - Plan Plan:: Impression: Suicidal ideation, history of end stage prostate cancer per patient report Scheduled for PET scan this week; CTX, Degarelix S/P bilateral extremity lacerations 2/2 suicide attempt CVA, subacute with predominately right sided deficits; liberal BP mgt. Dehydration -> resolved Hypokalemia -> resolved Elevated WBCs, query reactive cf infectious Elevated Tn (demand ischemia cf ACS); follow up decreasing Tn; continue ASA; Trending down Imaging, 12-30-18 (carotid, 2D echo, MRI); MRI small posterior parietal CVA Nausea and vomiting Questionable duodenal mass on Abdominal/Pelvis CT - Dr. Iglesias Consulted Chronic HTN HLD Plan: IVF 1:1 CVA protocol MRI re; mets and CVA. Bedside swallow evaluation ->passed Ischemic work up; ECG generalized ST depression, Sinus tach Lipid panel EMR from oncologist Psychiatric consult; re: depression with suicidal thoughts/gesture Nicotine replacement Consult Dr. Espino for EGD on 01/01/[address] abdomen/Pelvis Full code status DVT prophylaxis
[2018-12-31] MEDS ORDERED: Iopamidol 755 Mg/ML 100 ML Bottle IVPUSH ONE (11:18)
[2018-12-31] MEDS: Sodium Chloride 0.9% 10 ML Syringe FLUSH PRN (11:21)
--- NOTE | 2018-12-31 11:50 | CT ---
CT abdomen and pelvis Technique: Multiple axial sections were obtained from above the dome of the diaphragm inferiorly through the pubic symphysis. Intravenous contrast was utilized. No oral contrast has been given. Delayed images were obtained through the bladder. Comparison: No prior abdominal imaging. Findings: Small right sided pleural effusion is seen with trace left-sided pleural effusion. Slight linear scarring is seen within both lung bases. Emphysematous change appears to be present within both lung bases. Liver shows no focal parenchymal abnormality. Gallbladder contains no calcified gallstones. Spleen appears within normal limits in size. There is a small low-density lesion within the inferior spleen measuring 4 mm which is likely incidental. Adrenal glands show no nodule. Right kidney shows a small cortical cyst measuring 4 mm. Kidneys otherwise appear within normal limits. Dilated descending duodenum is seen which contains intraluminal soft tissue material measuring around 3.2 cm. Uncertain if this is food material or represents intraluminal mass. 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 Atherosclerotic change noted within the aorta. Mild atelectatic common iliac arteries is incidentally noted. Pancreas appears within normal limits. No retroperitoneal adenopathy is seen. Very slight inflammatory change noted within the right upper abdomen. This appears to be surrounding a diverticulum suspicious for mild diverticulitis. Appendix also seen in this area but appendix is normal in size. No pelvic mass or adenopathy is seen. Radiation implant seeds noted within the prostate gland. Delayed images shows contrast within the distal ureters and within the bladder. Bone window settings shows degenerative change within the lower lumbar spine. Impression: 1. Small right sided pleural effusion and trace left-sided pleural effusion. 2. Linear scarring within both lung bases as well as emphysematous change. 3. Mild inflammatory change within the upper right abdomen which appears to have its epicenter around a colonic diverticulum suspicious for mild diverticulitis. 4. Soft tissue density within a dilated duodenum. As mentioned above, uncertain if this represents food material or represents intraluminal mass. Endoscopy could be considered to further evaluate. 5. Other incidental findings. Diagnostic code #3
[2018-12-31] MEDS: Nicotine 14 MG/24 Hr Patch TRDERM SCH (12:02)
[2018-12-31] MEDS: Sodium Chloride 0.9% 10 ML Syringe FLUSH ONE ×2 (12:04→12:32)
[2018-12-31] MEDS: Sucralfate 1 GM Tab PO SCH ×2 (12:31→16:00)
[2018-12-31] MEDS: Lactated Ringers 1,000 ML IV SCH ×2 (12:33→22:33)
--- NOTE | 2018-12-31 14:31 | PCM.PREANE ---
Preanesthetic Assessment - Anesthesia/Transfusion/Family Hx Anesthesia History: Prior Anesthesia Without Reaction Family History of Anesthesia Reaction: No Transfusion History: No Prior Transfusion(s) - Review of Systems General: Fatigue, Malaise Pulmonary: No Symptoms Cardiovascular: Dyspnea on Exertion Gastrointestinal: Abdominal Pain, Nausea, Vomiting Neurological: Weakness (right arm), Gait Disturbance - Physical Assessment NPO Status Date: 12/31/18 NPO Status Time: 13:30 Pulse: 96 O2 Sat by Pulse Oximetry: 94 Respiratory Rate: 18 Blood Pressure: 136/60 Temperature: 36.6 C Vital Signs: Last Vital Signs Temp 36.6 C 12/31/18 12:18 Pulse 96 12/31/18 12:18 Resp 18 12/31/18 12:18 BP 136/60 12/31/18 12:18 Pulse Ox 94 L 12/31/18 12:18 Height: 1.73 m Weight: 60.464 kg ASA Class: 3 Mental Status: Alert & Oriented x3 Airway Class: Mallampati = 1 Dentition: Reports: Dentures Thyro-Mental Finger Breadths: 3 Mouth Opening Finger Breadths: 3 ROM/Head Extension: Full Lungs: Clear to Auscultation, Normal Respiratory Effort Cardiovascular: Regular Rate, Regular Rhythm - Lab Values: Laboratory Last Values WBC 9.79 K/mm3 (4.23-9.07) H 12/31/18 05:07 RBC 3.05 M/mm3 (4.63-6.08) L 12/31/18 05:07 Hgb 9.2 gm/L (13.7-17.5) L 12/31/18 05:07 Hct 27.9 % (40.1-51.0) L 12/31/18 05:07 MCV 91.5 fl (79.0-92.2) 12/31/18 05:07 MCH 30.2 pg (25.7-32.2) 12/31/18 05:07 MCHC 33.0 g/dl (32.2-35.5) 12/31/18 05:07 RDW Std Deviation 44.9 fL (35.1-43.9) H 12/31/18 05:07 Plt Count 270 K/mm3 (163-337) 12/31/18 05:07 MPV 11.1 fl (9.4-12.3) 12/31/18 05:07 Neut % (Auto) 81.9 % (34.0-67.9) H 12/31/18 05:07 Lymph % (Auto) 12.7 % (21.8-53.1) L 12/31/18 05:07 [place] % (Auto) 4.8 % (5.3-12.2) L 12/31/18 05:07 Eos % (Auto) 0.2 (0.8-7.0) L 12/31/18 05:07 Baso % (Auto) 0.1 % (0.1-1.2) 12/31/18 05:07 Neut # (Auto) 8.02 K/mm3 (1.78-5.38) H 12/31/18 05:07 Lymph # (Auto) 1.24 K/mm3 (1.32-3.57) L 12/31/18 05:07 [place] # (Auto) 0.47 K/mm3 (0.30-0.82) 12/31/18 05:07 Eos # (Auto) 0.02 K/mm3 (0.04-0.54) L 12/31/18 05:07 Baso # (Auto) 0.01 K/mm3 (0.01-0.08) 12/31/18 05:07 PT 10.9 SECONDS (9.5-12.1) 12/29/18 16:35 INR 1.00 12/29/18 16:35 APTT 25 SECONDS (24-31) 12/29/18 16:35 Sodium 144 mEq/L (136-145) 12/31/18 05:07 Potassium 4.6 mEq/L (3.5-5.1) 12/31/18 05:07 Chloride 109 mEq/L (98-107) H 12/31/18 05:07 Carbon Dioxide 27 mEq/L (21-32) 12/31/18 05:07 Anion Gap 12.6 (5-15) 12/31/18 05:07 BUN 38 mg/dL (7-18) H 12/31/18 05:07 Creatinine 0.9 mg/dL (0.7-1.3) 12/31/18 05:07 Est Cr Clr Drug Dosing 58.78 mL/min 12/31/18 05:07 Estimated GFR (MDRD) > 60 mL/min (>60) 12/31/18 05:07 BUN/Creatinine Ratio 42.2 (14-18) H 12/31/18 05:07 Glucose 157 mg/dL (83-115) H 12/31/18 05:07 POC Glucose 124 mg/dL (83-110) H 12/29/18 16:15 Lactic Acid 0.6 mmol/L (0.4-2.0) 12/31/18 05:07 Calcium 8.4 mg/dL (8.5-10.1) L 12/31/18 05:07 Magnesium 1.8 mg/dl (1.8-2.4) 12/31/18 05:07 Total Bilirubin 0.6 mg/dL (0.2-1.0) 12/31/18 05:07 AST 22 U/L (15-37) 12/31/18 05:07 ALT 15 U/L (16-63) L 12/31/18 05:07 Alkaline Phosphatase 66 U/L (46-116) 12/31/18 05:07 CK-MB (CK-2) 1.6 ng/ml (0-3.6) 12/30/18 10:27 Troponin I 0.369 ng/mL (0.00-0.056) H* 12/30/18 18:00 C-Reactive Protein 5.4 mg/dL (<1.0) H* 12/31/18 05:07 NT-Pro-B Natriuret Pep 2473 pg/mL (0-450) H 12/30/18 18:00 Total Protein 5.6 g/dl (6.4-8.2) L 12/31/18 05:07 Albumin 2.4 g/dl (3.4-5.0) L 12/31/18 05:07 Globulin 3.2 gm/dL 12/31/18 05:07 Albumin/Globulin Ratio 0.8 (1-2) L 12/31/18 05:07 Triglycerides 160 mg/dL (<150) H 12/31/18 05:07 Cholesterol 135 mg/dL (<200) 12/31/18 05:07 LDL Cholesterol Direct 75 mg/dL (<100) 12/31/18 05:07 HDL Cholesterol 38.0 mg/dL (40-59) L 12/31/18 05:07 Lipase 169 U/L (73-393) 12/31/18 05:07 Prostate Specific Ag 12.7 ng/mL (0.1-4.0) H 12/30/18 06:05 TSH 3rd Generation 2.290 uIU/mL (0.358-3.74) 12/29/18 16:35 Urine Color Yellow (Yellow) 12/29/18 17:47 Urine Appearance Clear (Clear) 12/29/18 17:47 Urine pH 6.0 (5.0-8.0) 12/29/18 17:47 Ur Specific [place] 1.025 (1.005-1.030) 12/29/18 17:47 Urine Protein 1+ (Negative) H 12/29/18 17:47 Urine Glucose (UA) Negative (Negative) 12/29/18 17:47 Urine Ketones Trace (Negative) H 12/29/18 17:47 Urine Occult Blood Negative (Negative) 12/29/18 17:47 Urine Nitrite Negative (Negative) 12/29/18 17:47 Urine Bilirubin 1+ (Negative) H 12/29/18 17:47 Urine Urobilinogen 0.2 (0.2-1.0) 12/29/18 17:47 Ur Leukocyte Esterase Negative (Negative) 12/29/18 17:47 Urine RBC 0-5 /hpf (0-5) 12/29/18 17:47 Urine WBC 0-5 /hpf (0-5) 12/29/18 17:47 Ur Epithelial Cells 0-5 /hpf (0-5) 12/29/18 17:47 Urine Bacteria Rare /hpf (FEW) 12/29/18 17:47 Urine Mucus Not seen /hpf (FEW) 12/29/18 17:47 Salicylates 0.5 mg/dL (2.8-20) L 12/29/18 16:35 Urine Opiates Screen Negative (HLNZLR=661) 12/29/18 17:47 Ur Buprenorphine Scrn Negative (CUTOFF=10) 12/29/18 17:47 Ur Oxycodone Screen Negative (SQD2TC=869) 12/29/18 17:47 Urine Methadone Screen Negative (BJV3QE=686) 12/29/18 17:47 Ur Propoxyphene Screen Negative (GXARCF=490) 12/29/18 17:47 Acetaminophen 0 ug/mL (10-30) L 12/29/18 16:35 Ur Barbiturates Screen Negative (RRIEJR=711) 12/29/18 17:47 Ur Tricyclics Screen Negative (TQSRSE=943) 12/29/18 17:47 Ur Phencyclidine Scrn Negative (CUTOFF=25) 12/29/18 17:47 Ur Amphetamine Screen Negative (HMSCJG=858) 12/29/18 17:47 U Methamphetamines Scrn Negative (XUPRWX=501) 12/29/18 17:47 U Benzodiazepines Scrn Negative (LIHPSH=712) 12/29/18 17:47 U Cocaine Metab Screen Negative (PZQCMY=355) 12/29/18 17:47 U Marijuana (THC) Screen Negative (CUTOFF=50) 12/29/18 17:47 Ethyl Alcohol 0.00 gm% (0.00) 12/29/18 16:35 - Imaging/EKG Impressions: on chart - Allergies Allergies/Adverse Reactions: Allergies Allergy/AdvReac Type Severity Reaction Status Date / Time No Known Allergies Allergy Verified 12/29/18 16:13 - Blood Blood Available: No Product(s) Available: None - Anesthesia Plan Pre-Op Medication Ordered: None - Acknowledgements Anesthesia Type Planned: MAC Pt an Appropriate Candidate for the Planned Anesthesia: Yes Alternatives and Risks of Anesthesia Discussed w Pt/Guardian: Yes Pt/Guardian Understands and Agrees with Anesthesia Plan: Yes PreAnesthesia Questionnaire HEENT History: Reports: Cataract, Impaired Vision Cardiovascular History: Reports: Hypertension Gastrointestinal History: Reports: GERD Other Genitourinary History: Prostate Cancer Musculoskeletal History: Reports: Arthritis Neurological History: Reports: Other (See Below) (had a stroke a week ago weekness on right side) Psychiatric History: Reports: Addiction, Suicide Attempt Other Psychiatric History: Suicide attempt 12/26/18-12/27/18 Oncologic (Cancer) History: Reports: Prostate - Infectious Disease History Infectious Disease History: Reports: Chicken Pox - Past Surgical History Male Surgical History: Reports: Other (See Below) Other Male Surgeries/Procedures: patient has seeds placed for prostrate cancer. - SUBSTANCE USE Smoking Status *Q: Current Every Day Smoker Tobacco Use Within Last Twelve Months: Cigarettes, Pipe Second Hand Smoke Exposure: No Days Per Week of Alcohol Use: 6 Number of Drinks Per Day: 4 Total Drinks Per Week: 24 Date of Last Drink: 12/29/18 Time of Last Drink: 12:00 Recreational Drug Use History: No - HOME MEDS Home Medications: Home Meds Degarelix [Firmagon] 80 mg SQ ASDIRECTED 12/29/18 [History] Losartan/Hydrochlorothiazide [Hyzaar 100-12.5 Tablet] 1 each PO DAILY 12/29/18 [ History] amLODIPine Besylate [Amlodipine Besylate] 5 mg PO DAILY 12/29/18 [History] - CURRENT (IN HOUSE) MEDS Current Meds: Current Medications Al Hydroxide/Mg Hydroxide (Mag-Al Plus) 30 ml PO Q4H PRN PRN Reason: Heartburn Last Admin: 12/31/18 02:47 Dose: 30 ml Aspirin (Ecotrin) 325 mg PO DAILY [facility] Last Admin: 12/31/18 09:35 Dose: Not Given Calcium Carbonate/Glycine (Tums) 500 mg PO Q2H PRN PRN Reason: Indigestion Last Admin: 12/31/18 08:30 Dose: 500 mg Enoxaparin Sodium (Lovenox) 40 mg SUBCUT Q24H [facility] Last Admin: 12/30/18 20:12 Dose: 40 mg Fluoxetine HCl (Prozac) 20 mg PO DAILY [facility] Last Admin: 12/31/18 10:21 Dose: 20 mg Hydralazine HCl (Apresoline) 10 mg IVPUSH Q8H PRN PRN Reason: Hypertension Lactated Ringer's (Ringers, Lactated) 1,000 mls @ 100 mls/hr IV ASDIRECTED [facility] Last Admin: 12/31/18 12:33 Dose: 100 mls/hr Lorazepam (Ativan) 0.5 mg PO BID ADELINA Lorazepam (Ativan) 1 - 3 mg IVPUSH Q2H PRN; Protocol PRN Reason: withdrawl Miscellaneous Information (Remove Patch) 0 ea TRDERM ONETIME ONE Stop: 01/03/19 08:01 Miscellaneous Information (Remove Patch) 1 ea TRDERM Q24H [facility] Nicotine (Habitrol) 14 mg TRDERM Q24H [facility] Last Admin: 12/31/18 12:02 Dose: Not Given Ondansetron HCl (Zofran) 4 mg IVPUSH Q4H PRN PRN Reason: Nausea Last Admin: 12/31/18 01:34 Dose: 4 mg Pantoprazole Sodium (Protonix) 40 mg PO BIDAC [facility] Sodium Chloride (Saline Flush) 10 ml FLUSH ASDIRECTED PRN PRN Reason: Keep Vein Open Last Admin: 12/29/18 16:28 Dose: 10 ml Sucralfate (Carafate) 1 gm PO TIDAC [facility] Last Admin: 12/31/18 12:31 Dose: 1 gm Thiamine HCl (Vitamin B-1) 100 mg IV DAILY [facility] Discontinued Medications Aspirin (Aspirin) 324 mg PO ONETIME ONE Stop: 12/30/18 08:01 Last Admin: 12/30/18 09:24 Dose: 324 mg Bisacodyl (Dulcolax) 10 mg RECTAL ONETIME ONE Stop: 12/30/18 06:31 Last Admin: 12/30/18 09:23 Dose: Not Given Furosemide (Lasix) 20 mg IVPUSH ONETIME ONE Stop: 12/31/18 09:01 Last Admin: 12/31/18 08:40 Dose: 20 mg Gadobenate Dimeglumine (Multihance) 12 ml IVPUSH ONETIME ONE Stop: 12/30/18 08:02 Last Admin: 12/30/18 08:30 Dose: 12 ml Potassium Chloride/Sodium Chloride (Normal Saline With 20 Meq Kcl) 1,000 mls @ 150 [facility]ls[facility] Last Admin: 12/29/18 18:03 Dose: 150 mls/hr Sodium Chloride (Normal Saline) 1,000 mls @ 999 mls/hr IV ONETIME ONE Stop: 12/29/18 21:20 Last Admin: 12/29/18 21:25 Dose: Not Given Magnesium Sulfate 2 gm/ Premix 50 mls @ 25 mls/hr IV ONETIME ONE Stop: 12/29/18 22:23 Last Admin: 12/29/18 21:12 Dose: 25 mls/hr Lactated Ringer's (Ringers, Lactated) 1,000 mls @ 999 mls/hr IV ONETIME ONE Stop: 12/29/18 21:37 Last Admin: 12/29/18 21:12 Dose: 999 mls/hr Lactated Ringer's (Ringers, Lactated) 1,000 mls @ 125 mls[facility] Stop: 12/30/18 06:00 Last Admin: 12/30/18 07:12 Dose: 125 mls/hr Lactated Ringer's (Ringers, Lactated) 1,000 mls @ 999 mls/hr IV .BOLUS ONE Stop: 12/30/18 05:34 Last Admin: 12/30/18 04:35 Dose: 999 mls/hr Iopamidol (Isovue-370 (76%)) 100 ml IVPUSH ONETIME ONE Stop: 12/31/18 11:19 Last Admin: 12/31/18 11:21 Dose: 100 ml Metoclopramide HCl (Reglan) 5 mg IVPUSH Q6H PRN PRN Reason: Nausea Last Admin: 12/31/18 05:07 Dose: 5 mg Pantoprazole Sodium (Protonix Iv) 40 mg IVPUSH ONETIME ONE Stop: 12/31/18 11:01 Last Admin: 12/31/18 12:32 Dose: 40 mg Potassium Chloride (Klor-Con M20) 40 meq PO BID ADELINA Stop: 12/31/18 09:01 Last Admin: 12/30/18 20:12 Dose: 40 meq Scopolamine (Transderm-Scop) 1.5 mg TRDERM Q72H PRN PRN Reason: Nausea/Vomiting Scopolamine (Transderm-Scop) 1.5 mg TOP ONETIME ONE Stop: 12/31/18 08:01 Last Admin: 12/31/18 08:38 Dose: 1.5 mg Sodium Chloride (Saline Flush) 10 ml FLUSH ONETIME PRN PRN Reason: Keep Vein Open Stop: 12/30/18 12:00 Last Admin: 12/31/18 11:21 Dose: 10 ml Sodium Chloride (Saline Flush) 10 ml FLUSH ONETIME ONE Stop: 12/31/18 11:19 Last Admin: 12/31/18 12:32 Dose: Not Given
[2018-12-31] MEDS: Pantoprazole 40 MG Tab.CR PO SCH (15:59)
--- NOTE | 2018-12-31 18:53 | CONS ---
CONSULTING PHYSICIAN: Uriah Young MD DATE OF CONSULTATION: 12/31/2018 This is a 60-minute inpatient telemedicine event. Site where the services are provided to are [facility] in [place], [place]. Site where the services are provided from our offices in [facility]. Length of time for this 60-minute inpatient telemedicine event is 60 minutes. IDENTIFICATION: The patient is a 78-year-old male who was admitted to the inpatient Med/Surg Unit at [facility] in [place], [place]. He is seen for psychiatric evaluation per the request of staff attending Dr. Lenz and her treatment team. CHIEF COMPLAINT: "I decided to cut my wrist and bleed." HISTORY OF PRESENT ILLNESS: The patient is a 78-year-old male who was admitted to the hospital on 12/29/2018 after a suicide attempt where he cut his wrist in the face of alcohol intoxication. He states that he recently had a stroke and had been depressed about the stroke. He states "I am scared" about his medical condition. He states that he has been struggling with symptoms of the stroke because he has been living by himself. Staff is reporting that the patient is refusing to participate in any type of physical rehab activities, he is refusing to be transferred to inpatient transitional rehab units because he just wanted to go home "to be by myself." He is denying any suicidal or homicidal thoughts at this point in time. He is denying any psychotic, delusional, or paranoid symptoms, but he is stating that he just "wants to be left alone" according to staff. MEDICATIONS: At the time of presentation, none. ALLERGIES: No known drug allergies. PAST MEDICAL HISTORY: 1. Status post stroke within the past 2 weeks. 2. History of hypertension. 3. History of prostate cancer. 4. Status post suicide attempt by cutting wrist. REVIEW OF SYSTEMS: Aside from neurologic, cardiovascular, genitourinary, and musculoskeletal, all other major organ systems are negative at this point in time for acute difficulties or complications. FAMILY PSYCHIATRIC AND CD HISTORY: The patient denies any previous psychiatric hospitalizations or chemical dependency treatments. Denies any previous suicide attempts. Denies any self- injurious behaviors in the past. Denies any past psychiatric medication treatments. SOCIAL HISTORY: The patient was born and raised in [facility]. He is , but , single now. Not involved in any current relationships. He has 2 children, one daughter whom he is close to, but he is refusing to let hospital staff contact the children regarding his clinical situation. He is retired from [employer]. MENTAL STATUS EXAM: The patient is a 78-year-old white male, in no apparent distress. Speech is of increased latency of response, short in duration of utterance. The patient is cognitively oriented x3 to person, place, and time. Psychomotor activity is within normal limits. No abnormal motor movements or tics observed. Gait and station are not observed as the patient is lying in bed during the course of the interview. Mood is "scared." Affect is restricted, but cooperative overall for the purposes of the inpatient telemedicine consult even though he makes very poor eye contact during the course of the interview. There is no behavioral or stated evidence of acute suicidal or homicidal ideation or acute psychotic, delusional, or paranoid symptoms. Thought blocking does appear to be somewhat evident, however, there are no manic symptoms or loose associations evident. Judgment and insight do appear impaired at this point in time secondary to the severity of his depression and perhaps also from the sequela from the stroke. Motivation for help is poor. VITAL SIGNS: 136/90, 74, 16, 97.8 degrees. IMPRESSION: [place] I: 1. Major depressive disorder, F32.3. 2. Anxiety disorder, not otherwise specified, F41.9. 3. Rule out alcohol abuse versus dependence. [place] II: None. [place] III: 1. Status post stroke. 2. History of prostate cancer. 3. History of hypertension. 4. Status post wrist lacerations bilaterally. [place] IV: Severe. [place] V: 50. PLAN: 1. Sobriety. 2. AA rep to visit the patient while on the unit. 3. Pastoral guidance. 4. Staff has recommended to consider CD consult if needed. 5. Begin Prozac 20 mg. No overt symptoms of depression. 6. Begin Ativan 0.5 mg b.i.d. for anxiety reduction. 7. Recommend when the patient is medically stabilized that he be transferred to Inpatient Psychiatry for further psychiatric stabilization and safety given the severity of his depressive symptoms upon presentation. 8. We will continue followup with the patient on an as-needed basis while he remains on the inpatient Med/Surg Unit at [facility] in [place], [place]. 9. We will follow up with the patient sooner if any complications in the interim. 10.Crisis plan is in place. MOLINA /[id number]
[2018-12-31] MEDS: LORazepam 0.5 MG Tab PO SCH (20:16)
[2018-12-31] MEDS: Enoxaparin 40 MG/0.4 ML Syringe SUBCUT SCH (20:20)
[2019-01-01] MEDS ORDERED: Propofol 200 MG/20 ML SDV ONE (07:21)
[2019-01-01] MEDS ORDERED: fentaNYL 100 MCG/2 ML SDV ONE (07:21)
--- NOTE | 2019-01-01 07:54 | PCM.PN ---
- General Info Date of Service: 01/01/19 Admission Dx/Problem (Free Text): Admission Diagnosis/Problem Admission Diagnosis/Problem CVA, Cerebrovascular accident - Patient Data Vitals - Most Recent: Last Vital Signs Temp 98.2 F 01/01/19 07:42 Pulse 67 01/01/19 07:42 Resp 16 01/01/19 07:42 BP 131/53 L 01/01/19 07:42 Pulse Ox 96 01/01/19 07:42 Weight - Most Recent: 132 lb 6.4 oz I&O - Last 24 Hours: Intake & Output 12/31/18 01/01/19 01/01/19 22:59 06:59 14:59 Intake Total 735 2213 Output Total 1100 Balance -365 2213 Lab Results Last 24 Hours: Laboratory Results - last 24 hr 12/31/18 01/01/19 01/01/19 Range/Units 05:07 05:25 05:25 WBC 6.33 (4.23-9.07) K/mm3 RBC 2.41 L (4.63-6.08) M/mm3 Hgb 7.1 L* (13.7-17.5) gm/L Hct 22.3 L (40.1-51.0) % MCV 92.5 H (79.0-92.2) fl MCH 29.5 (25.7-32.2) pg MCHC 31.8 L (32.2-35.5) g/dl RDW Std Deviation 45.3 H (35.1-43.9) fL Plt Count 185 (163-337) K/mm3 MPV 11.3 (9.4-12.3) fl Neut % (Auto) 62.9 (34.0-67.9) % Lymph % (Auto) 27.5 (21.8-53.1) % Hemphill % (Auto) 6.6 (5.3-12.2) % Eos % (Auto) 2.5 (0.8-7.0) Baso % (Auto) 0.2 (0.1-1.2) % Neut # (Auto) 3.98 (1.78-5.38) K/mm3 Lymph # (Auto) 1.74 (1.32-3.57) K/mm3 Hemphill # (Auto) 0.42 (0.30-0.82) K/mm3 Eos # (Auto) 0.16 (0.04-0.54) K/mm3 Baso # (Auto) 0.01 (0.01-0.08) K/mm3 Sodium 144 (136-145) mEq/L Potassium 4.6 (3.5-5.1) mEq/L Chloride 109 H (98-107) mEq/L Carbon Dioxide 27 (21-32) mEq/L Anion Gap 12.6 (5-15) BUN 38 H (7-18) mg/dL Creatinine 0.9 (0.7-1.3) mg/dL Est Cr Clr Drug Dosing 58.78 mL/min Estimated GFR (MDRD) > 60 (>60) mL/min BUN/Creatinine Ratio 42.2 H (14-18) Glucose 157 H (83-115) mg/dL Lactic Acid 0.8 (0.4-2.0) mmol/L Calcium 8.4 L (8.5-10.1) mg/dL Total Bilirubin 0.6 (0.2-1.0) mg/dL AST 22 (15-37) U/L ALT 15 L (16-63) U/L Alkaline Phosphatase 66 (46-116) U/L Total Protein 5.6 L (6.4-8.2) g/dl Albumin 2.4 L (3.4-5.0) g/dl Globulin 3.2 gm/dL Albumin/Globulin Ratio 0.8 L (1-2) Lipase 169 (73-393) U/L Talon Results Last 24 Hours: Microbiology 12/31/18 18:06 Helicobacter pylori Antigen - Final Stool / Feces NEGATIVE [facility] Med Orders - Current: Current Medications Al Hydroxide/Mg Hydroxide (Mag-Al Plus) 30 ml PO Q4H PRN PRN Reason: Heartburn Last Admin: 12/31/18 02:47 Dose: 30 ml Aspirin (Ecotrin) 325 mg PO DAILY [facility] Last Admin: 12/31/18 09:35 Dose: Not Given Calcium Carbonate/Glycine (Tums) 500 mg PO Q2H PRN PRN Reason: Indigestion Last Admin: 12/31/18 08:30 Dose: 500 mg Enoxaparin Sodium (Lovenox) 40 mg SUBCUT Q24H [facility] Last Admin: 12/31/18 20:20 Dose: Not Given Fluoxetine HCl (Prozac) 20 mg PO DAILY [facility] Last Admin: 12/31/18 10:21 Dose: 20 mg Folic Acid (Folic Acid) 1 mg PO DAILY [facility] Hydralazine HCl (Apresoline) 10 mg IVPUSH Q8H PRN PRN Reason: Hypertension Lactated Ringer's (Ringers, Lactated) 1,000 mls @ 100 mls/hr IV ASDIRECTED [facility] Last Admin: 12/31/18 22:33 Dose: 100 mls/hr Lorazepam (Ativan) 0.5 mg PO BID [facility] Last Admin: 12/31/18 20:16 Dose: 0.5 mg Lorazepam (Ativan) 1 - 3 mg IVPUSH Q2H PRN; Protocol PRN Reason: withdrawl Miscellaneous Information (Remove Patch) 0 ea TRDERM ONETIME ONE Stop: 01/03/19 08:01 Miscellaneous Information (Remove Patch) 1 ea TRDERM Q24H [facility] Multivitamins (Thera) 1 each PO DAILY [facility] Nicotine (Habitrol) 14 mg TRDERM Q24H [facility] Last Admin: 12/31/18 12:02 Dose: Not Given Ondansetron HCl (Zofran) 4 mg IVPUSH Q4H PRN PRN Reason: Nausea Last Admin: 12/31/18 01:34 Dose: 4 mg Pantoprazole Sodium (Protonix) 40 mg PO BIDAC [facility] Last Admin: 12/31/18 15:59 Dose: 40 mg Sodium Chloride (Saline Flush) 10 ml FLUSH ASDIRECTED PRN PRN Reason: Keep Vein Open Last Admin: 12/29/18 16:28 Dose: 10 ml Sucralfate (Carafate) 1 gm PO TIDAC [facility] Last Admin: 12/31/18 16:00 Dose: 1 gm Thiamine HCl (Vitamin B-1) 100 mg IV DAILY [facility] Discontinued Medications Aspirin (Aspirin) 324 mg PO ONETIME ONE Stop: 12/30/18 08:01 Last Admin: 12/30/18 09:24 Dose: 324 mg Bisacodyl (Dulcolax) 10 mg RECTAL ONETIME ONE Stop: 12/30/18 06:31 Last Admin: 12/30/18 09:23 Dose: Not Given Fentanyl (Sublimaze) Confirm Administered Dose 100 mcg .ROUTE .STK-MED ONE Stop: 01/01/19 07:22 Furosemide (Lasix) 20 mg IVPUSH ONETIME ONE Stop: 12/31/18 09:01 Last Admin: 12/31/18 08:40 Dose: 20 mg Gadobenate Dimeglumine (Multihance) 12 ml IVPUSH ONETIME ONE Stop: 12/30/18 08:02 Last Admin: 12/30/18 08:30 Dose: 12 ml Potassium Chloride/Sodium Chloride (Normal Saline With 20 Meq Kcl) 1,000 mls @ 150 mls/hr IV ASDIRECTED [facility] Last Admin: 12/29/18 18:03 Dose: 150 mls/hr Sodium Chloride (Normal Saline) 1,000 mls @ 999 mls/hr IV ONETIME ONE Stop: 12/29/18 21:20 Last Admin: 12/29/18 21:25 Dose: Not Given Magnesium Sulfate 2 gm/ Premix 50 mls @ 25 mls/hr IV ONETIME ONE Stop: 12/29/18 22:23 Last Admin: 12/29/18 21:12 Dose: 25 mls/hr Lactated Ringer's (Ringers, Lactated) 1,000 mls @ 999 mls/hr IV ONETIME ONE Stop: 12/29/18 21:37 Last Admin: 12/29/18 21:12 Dose: 999 mls/hr Lactated Ringer's (Ringers, Lactated) 1,000 mls @ 125 mls/hr IV ASDIRECTED [facility] Stop: 12/30/18 06:00 Last Admin: 12/30/18 07:12 Dose: 125 mls/hr Lactated Ringer's (Ringers, Lactated) 1,000 mls @ 999 mls/hr IV .BOLUS ONE Stop: 12/30/18 05:34 Last Admin: 12/30/18 04:35 Dose: 999 mls/hr Iopamidol (Isovue-370 (76%)) 100 ml IVPUSH ONETIME ONE Stop: 12/31/18 11:19 Last Admin: 12/31/18 11:21 Dose: 100 ml Metoclopramide HCl (Reglan) 5 mg IVPUSH Q6H PRN PRN Reason: Nausea Last Admin: 12/31/18 05:07 Dose: 5 mg Pantoprazole Sodium (Protonix Iv) 40 mg IVPUSH ONETIME ONE Stop: 12/31/18 11:01 Last Admin: 12/31/18 12:32 Dose: 40 mg Potassium Chloride (Klor-Con M20) 40 meq PO BID [facility] Stop: 12/31/18 09:01 Last Admin: 12/30/18 20:12 Dose: 40 meq Propofol (Diprivan 20 Ml) Confirm Administered Dose 200 mg .ROUTE .STK-MED ONE Stop: 01/01/19 07:22 Scopolamine (Transderm-Scop) 1.5 mg TRDERM Q72H PRN PRN Reason: Nausea/Vomiting Scopolamine (Transderm-Scop) 1.5 mg TOP ONETIME ONE Stop: 12/31/18 08:01 Last Admin: 12/31/18 08:38 Dose: 1.5 mg Sodium Chloride (Saline Flush) 10 ml FLUSH ONETIME PRN PRN Reason: Keep Vein Open Stop: 12/30/18 12:00 Last Admin: 12/31/18 11:21 Dose: 10 ml Sodium Chloride (Saline Flush) 10 ml FLUSH ONETIME ONE Stop: 12/31/18 11:19 Last Admin: 12/31/18 12:32 Dose: Not Given - Problem List & Annotations (1) Nausea & vomiting SNOMED Code(s): 42692694 Code(s): R11.2 - NAUSEA WITH VOMITING, UNSPECIFIED Status: Acute Priority : High Current Visit: Yes Qualifiers: Vomiting type: unspecified Vomiting Intractability: unspecified Qualified Code(s): R11.2 - Nausea with vomiting, unspecified (2) Cerebrovascular accident (CVA) SNOMED Code(s): 316868931 Code(s): I63.9 - CEREBRAL INFARCTION, UNSPECIFIED Status: Acute Priority : High Current Visit: Yes Qualifiers: CVA mechanism: unspecified Qualified Code(s): I63.9 - Cerebral infarction, unspecified (3) Hypokalemia SNOMED Code(s): 47114677 Code(s): E87.6 - HYPOKALEMIA Status: Acute Priority: High Current Visit : Yes (4) Laceration of right upper arm SNOMED Code(s): 081355128 Code(s): S41.111A - LACERATION W/O FOREIGN BODY OF RIGHT UPPER ARM, INIT ENCNTR Status: Acute Priority: High Current Visit: Yes Qualifiers: Encounter type: initial encounter Qualified Code(s): S41.111A - Laceration without foreign body of right upper arm, initial encounter (5) Prostate cancer SNOMED Code(s): 879559009 Code(s): C61 - MALIGNANT NEOPLASM OF PROSTATE Status: Acute Priority: High Current Visit: Yes (6) Suicidal ideation SNOMED Code(s): 9634414 Code(s): R45.851 - SUICIDAL IDEATIONS Status: Acute Priority: High Current Visit: Yes (7) Tobacco dependence SNOMED Code(s): 73156626 Code(s): F17.200 - NICOTINE DEPENDENCE, UNSPECIFIED, UNCOMPLICATED Status: Acute Priority: High Current Visit: Yes - My Orders Last 24 Hours: My Active Orders 12/31/18 08:02 Calcium Carbonate [Tums] 500 mg PO Q2H PRN 12/31/18 11:00 Sucralfate [Carafate] 1 gm PO TIDAC 12/31/18 11:02 Consult for Substance Abuse [CONS] Routine 12/31/18 11:04 CIWAA Assessment [RC] Q2H LORazepam [Ativan] 1 - 3 mg IVPUSH Q2H PRN 12/31/18 11:15 Lactated Ringers [Ringers, Lactated] 1,000 ml IV ASDIRECTED 12/31/18 12:35 Consult to Physician [CONS] Routine 12/31/18 12:36 Notify Provider Consults [RC] ASDIRECTED 12/31/18 16:00 Pantoprazole [ProTONIX] 40 mg PO BIDAC 12/31/18 Dinner NPO After Midnight [Nothing per Oral After Midnight Diet] [DIET] 01/01/19 07:04 OCCULT BLOOD DIAGNOSTIC [OP] Routine 01/01/19 07:22 Antiembolic Devices [RC] PER UNIT ROUTINE SCD [Sequential Compression Device] [OM.PC] Routine 01/01/19 07:50 PACKED CELLS [RED BLOOD CELLS LP] [BBK] Routine TYPE AND SCREEN [BBK] Routine 01/01/19 07:51 FE, TIBC, TRANSFERRIN, FE SAT [CHEM] Routine 01/01/19 07:52 Transfuse Red Blood Cells [COMM] Routine 01/01/19 09:00 Folic Acid 1 mg PO DAILY Multivitamins,Therapeutic [Thera] 1 each PO DAILY Thiamine [Vitamin B-1] 100 mg IV DAILY 01/03/19 08:00 Remove Patch 0 ea TRDERM ONETIME ONE - Plan Plan:: Impression: Suicidal ideation, history of end stage prostate cancer per patient report Scheduled for PET scan this week; CTX, Degarelix S/P bilateral extremity lacerations 2/2 suicide attempt CVA, subacute with predominately right sided deficits; liberal BP mgt. Dehydration -> resolved Hypokalemia -> resolved Elevated WBCs, query reactive cf infectious Elevated Tn (demand ischemia cf ACS); follow up decreasing Tn; continue ASA; Trending down Imaging, 12-30-18 (carotid, 2D echo, MRI); MRI small posterior parietal CVA Nausea and vomiting Questionable duodenal mass on Abdominal/Pelvis CT - Dr. Iglesias Consulted Chronic HTN HLD Plan: IVF 1:1 CVA protocol MRI re; mets and CVA. Bedside swallow evaluation ->passed Ischemic work up; ECG generalized ST depression, Sinus tach Lipid panel EMR from oncologist Psychiatric consult; re: depression with suicidal thoughts/gesture Nicotine replacement Consult Dr. Espino for EGD on 01/01/[address] abdomen/Pelvis Full code status DVT prophylaxis
[2019-01-01] MEDS: Lactated Ringers 1,000 ML IV SCH (08:36)
[2019-01-01] MEDS: Sucralfate 1 GM Tab PO SCH ×2 (08:37→11:19)
[2019-01-01] MEDS: Pantoprazole 40 MG Tab.CR PO SCH (08:37)
[2019-01-01] MEDS ORDERED: Folic Acid 1 MG Tab PO SCH (09:00)
[2019-01-01] MEDS ORDERED: Multivitamins,Therapeutic Tab PO SCH (09:00)
[2019-01-01] MEDS ORDERED: Thiamine 200 MG/2 ML MDV IV SCH (09:00)
[2019-01-01] MEDS ORDERED: Sodium Chloride 0.9% 250 ML IV SCH (09:15)
--- NOTE | 2019-01-01 09:22 | CONS ---
CONSULTING PHYSICIAN: Roland Espino MD DATE OF CONSULTATION: 12/31/2018 HISTORY OF PRESENT ILLNESS: The patient is a 78-year-old male, who came into the emergency room suffering a right-sided stroke on the . The patient was also complaining of nausea and vomiting and cutting himself because of suicidal ideation. He does have prostatic CA with PSA. His nausea and vomiting have persisted here and this has led to a CT scan, which has shown a filling defect in the duodenum and endoscopy was advised. PAST MEDICAL HISTORY: Hypertension and prostatic cancer. PAST SURGICAL HISTORY: Placement of seeds for prostate cancer. SOCIAL HISTORY: He is an everyday smoker. REVIEW OF SYSTEMS: No chest pain, shortness of breath, cough, hoarseness, wheezing, fainting, weakness, numbness, or convulsions. Does have some nausea and vomiting. PHYSICAL EXAMINATION: EXTREMITIES: Upper and lower extremities; no angulation deformities except for the right arm suffering some paralysis. Right leg is okay. NEUROLOGIC: Mentation is good. He is oriented. SKIN: Warm and dry. PSYCHIATRIC: Suicide ideations. MEDICATIONS: Per medication reconciliation form. ASSESSMENT: Nausea and vomiting with suspected foreign body defect in the duodenum. PLAN: For EGD. Discussed this with the patient, risks and complications. He understands and consents. MOLINA /[id number]
[2019-01-01] MEDS ORDERED: Sodium Chloride 0.9% 250 ML ONE (09:24)
[2019-01-01] MEDS: LORazepam 0.5 MG Tab PO SCH (10:30)
--- NOTE | 2019-01-01 10:37 | PCM.OPNOTE ---
- General Post-Op/Procedure Note Date of Surgery/Procedure: 01/01/19 Operative Procedure(s): egd with bx Pre Op Diagnosis: anemia blood loss Post-Op Diagnosis: Same Anesthesia Technique: MAC Primary Surgeon: Roland Espino EBL in mLs: 0 Complications: None Condition: Good Free Text/Narrative:: Intake & Output 12/31/18 01/01/19 01/01/19 23:59 07:59 15:59 Intake Total 735 2213 0 Output Total 1100 Balance -365 2213 0
--- NOTE | 2019-01-01 10:41 | PCM.POSTAN ---
POST ANESTHESIA ASSESSMENT - MENTAL STATUS Mental Status: Somnolent - VITAL SIGNS Pulse Rate: 69 SaO2: 100 Resp Rate: 10 Blood Pressure: 110/38 Temperature: 37.0 C - RESPIRATORY Respiratory Status: Respiratory Rate WNL, Airway Patent, O2 Saturation Stable, Supplemental Oxygen - CARDIOVASCULAR CV Status: Pulse Rate WNL, Blood Pressure Stable - GASTROINTESTINAL GI Status: No Symptoms - PAIN Pain Score: 0 - POST OP HYDRATION Hydration Status: Adequate & Stable
[2019-01-01] MEDS ORDERED: Pantoprazole 40 MG Vial IVPUSH ONE (11:09)
[2019-01-01] MEDS: Nicotine 14 MG/24 Hr Patch TRDERM SCH (11:15)
[2019-01-01] MEDS: FLUoxetine 20 MG Cap PO SCH (11:19)
--- NOTE | 2019-01-01 11:26 | PCM.DCSUM1 ---
Discharge Summary - Hospital Course HPI Initial Comments: 78 year old male, right handed with history of end stage prostate cancer , presented after cutting his arms because, "I wanted to bleed to ." He apparently noticed that he was unable to move his upper and lower extremities starting . It is unclear when he may have wanted to harm himself; he lives alone. The patient is a full code and does not want his family notified regarding his admission. He is outside the time frame for a thrombolytic. Diagnosis: Stroke: Yes Modified Anselmo Scale: Mod.Disablility Requiring Some Help,Able to Walk Without Assistance Modified Houston Scale Score: 3 - Discharge Data Discharge Date: 01/01/19 (Admit date: 12/29/18) Discharge Disposition: DC/Tfer to Acute Hospital 02 Condition: Stable - Discharge Diagnosis/Problem(s) (1) Nausea & vomiting SNOMED Code(s): 28039911 ICD Code: R11.2 - NAUSEA WITH VOMITING, UNSPECIFIED Status: Acute Priority: High Current Visit: Yes Qualifiers: Vomiting type: unspecified Vomiting Intractability: unspecified Qualified Code(s): R11.2 - Nausea with vomiting, unspecified (2) Cerebrovascular accident (CVA) SNOMED Code(s): 553089892 ICD Code: I63.9 - CEREBRAL INFARCTION, UNSPECIFIED Status: Acute Priority : High Current Visit: Yes Qualifiers: CVA mechanism: unspecified Qualified Code(s): I63.9 - Cerebral infarction, unspecified (3) Hypokalemia SNOMED Code(s): 28901387 ICD Code: E87.6 - HYPOKALEMIA Status: Acute Priority: High Current Visit: Yes (4) Laceration of right upper arm SNOMED Code(s): 889922333 ICD Code: S41.111A - LACERATION W/O FOREIGN BODY OF RIGHT UPPER ARM, INIT ENCNTR Status: Acute Priority: High Current Visit: Yes Qualifiers: Encounter type: initial encounter Qualified Code(s): S41.111A - Laceration without foreign body of right upper arm, initial encounter (5) Prostate cancer SNOMED Code(s): 816665776 ICD Code: C61 - MALIGNANT NEOPLASM OF PROSTATE Status: Acute Priority: High Current Visit: Yes (6) Suicidal ideation SNOMED Code(s): 1500086 ICD Code: R45.851 - SUICIDAL IDEATIONS Status: Acute Priority: High Current Visit: Yes (7) Tobacco dependence SNOMED Code(s): 91407498 ICD Code: F17.200 - NICOTINE DEPENDENCE, UNSPECIFIED, UNCOMPLICATED Status : Acute Priority: High Current Visit: Yes (8) Chronic alcohol use SNOMED Code(s): 915650 ICD Code: Z72.89 - OTHER PROBLEMS RELATED TO LIFESTYLE Status: Chronic Priority: High Current Visit: Yes (9) Non-STEMI (non-ST elevated myocardial infarction) SNOMED Code(s): 05355346 ICD Code: I21.4 - NON-ST ELEVATION (NSTEMI) MYOCARDIAL INFARCTION Status: Acute Priority: High Current Visit: Yes (10) GI bleed SNOMED Code(s): 05674084 ICD Code: K92.2 - GASTROINTESTINAL HEMORRHAGE, UNSPECIFIED Status: Acute Priority: High Current Visit: Yes Qualifiers: GI bleed type/associated pathology: unspecified gastrointestinal hemorrhage type Qualified Code(s): K92.2 - Gastrointestinal hemorrhage, unspecified - Patient Summary/Data Operative Procedure(s) Performed: egd with bx Consults: Consultations 12/29/18 23:01 Consult to Speech Language Pathology [SKILLED NURSING PROFESSIONAL Evaluation and Treatment] [CONS] Routine 12/30/18 09:00 Consult to Physician [CONS] Routine 12/30/18 11:00 Consult to Occupational Therapy [OT Evaluation and Treatment] [CONS] Routine Consult to Physical Therapy [PT Evaluation and Treatment] [CONS] Routine 12/31/18 09:51 Consult to Spiritual Care [CONS] Routine 12/31/18 11:02 Consult for Substance Abuse [CONS] Routine 12/31/18 12:35 Consult to Physician [CONS] Routine Hospital Course: Jerry Fontenot is a 78 yo male who presented to our ED on 12/29/18 via [facility] with strokelike symptoms. Reports the stroke has started the prior , 4 days before presentation and he was last known well around 6 PM. Reports severe weakness to his right arm and moderate weakness to his right leg. He lives alone and did not call anyone for help. He reports on Saturday night, 12/27/18 he became depressed and cut himself in 3 places placed on the wrist and one on the right before meals. His intention was to kill himself however they did not believe that much. He was crawling around his house to get around. He called 911 for help at that time. He did not eat or drink much for the past few days. He does have prostate cancer, which she reports has been present since [address]. Dr. Wooten is his oncologist. He has had prostate beads placed for this. He notes his PSA has been rising so his urologist and oncologist working on a different plan. He also reports he was drinking more over the past few days. He is noted to be a daily smoker and he does report 4 days per week of alcohol use initially. CT scan of his head was obtained and shows senescent change but no acute intracranial abnormality. EKG showed sinus tachycardia with ST depression globally. Troponin was initially less than 0.017. TSH was obtained and was normal and EtOH was negative. They also checked several salicylates and acetaminophen which were both normal. He denied being suicidal in the ED. his potassium was also found to be very low at 2.5 and this was supplemented. UA was negative. He was admitted to the Med/ Surg floor, 1:1 with suicide and aspiration precautions. The following morning after being admitted his troponin was noted to be elevated at 0.557. He was then given 325 mg of aspirin which was continued daily. He was also on 40 mg Levaquin daily. His troponins did continue to trend down after the initial high on the first day of admission. 12-lead EKG showed no change and no ST elevation. Echocardiogram was obtained showin. LVEF, by visual estimation, is 6065%. 2. Normal right ventricular size, wall thickness, and systolic function. 3. There is moderate aortic valve sclerosis without stenosis. 4. The right ventricular systolic pressure is normal." MRI was obtained and interpreted by our radiologist Dr. Rivas as "1. Small fairly acute white matter infarct is noted within the posterior left parietal region too. Senescent changes noted above. 3. No abnormal enhancement is seen." Speech language pathology did see him and clear him for a normal diet. Because of the suicide attempt he did see tele-psychiatry, Dr. Young. Plan of care per Dr. Young was "1. Sobriety. 2. A react to visit the patient while on the unit. 3. Past oral guidance. 4. Staff has recommended consider CDE consult if needed. 5. Begin Prozac 20 mg. No overt symptoms of depression. 6. Begin Ativan 0.5 mg twice a day for anxiety reduction. 7. Recommend when the patient is medically stabilized that he be transferred to inpatient psychiatry for further psychiatric stabilization and safety given the severity of his depression symptoms upon presentation. 8. We will continue to follow-up with the patient on an as-needed basis while he remains on the inpatient med/surge unit at [facility] in [facility]. 9. We will follow -up with the patient sooner if any complications in the interim. 10. Crisis panel and place." While the patient was talking with Dr. Young he did confess that he drinks more than originally stated. He reported drinking 3 mixed drinks daily. License addiction counselor was ordered however she was unable to see the patient while he was on the floor. Given his chronic alcohol use a multivitamin, full gases, and thiamine supplementation were started. CIWA protocol was also initiated with his CIWA remaining 0-2 at the highest. He did continue to work with PT OT. He did show some improvement on his weakness with his right leg however his right arm main flaccid. He did report sensation throughout all extremities. On 12/31/17 patient was noting increased nausea and had vomited several times. He also reported abdominal pain. Zofran and scopolamine patch were ordered. Lipase was checked and was normal. H. pylori was checked and was normal. Patient was at that time unable to eat due to frequent vomiting. CT scan of the abdomen and pelvis was ordered with IV contrast, as the patient was unable to keep down any oral contrast. This was interpreted by our radiologist Dr. Rivas as "1. Small right-sided pleural effusion and trace left-sided pleural effusion. 2. Linear scarring within both lung bases as well as emphysematous change. 3. Mild inflammatory change within the right upper right abdomen which appears to have its epicenter around a colonic diverticulum suspicious for mild diverticulitis. 4. Soft tissue density within the dilated duodenum. As mentioned above, uncertain if this represents food material represents intraluminal mass. Endoscopy could be considered to further evaluate. 5. Other incidental findings. Dr. Espino, general surgeon, was consulted with the plan to perform a EGD this morning, 01/01/19. His hemoglobin in the ED was 11.1 and this dropped to the low nines after his first 2 days. This morning he was noted to have a hemoglobin of 7.1. Occult blood was obtained and was positive for stool. It is also reported that he had a black tarry stool last night and this morning. 2 units of blood were ordered along with 40 mg IV push Lasix between. EGD was performed. I will defer to Dr. Youssef consultation note for details, however patient was noted to have ulceration with possible mass in the duodenum. Because of this Dr. Espino recommended transfer to [place]. He had been receiving by mouth Protonix and 40 mg IV push for tonics dose was given prior to transport. Dr. Espino contacted Dr. Butler, hospitalist, at [facility] in [place] who accepted the patient. Report was also given by myself to Dr. Cesar. Patient transferred to [place] via [facility] ground ambulance with blood running. His benefit of transfer were discussed with patient and although he was quite sleepy from sedation we did have a conversation and he reported that he was okay with transfer. - Patient Instructions Diet: NPO - Discharge Plan *PRESCRIPTION DRUG MONITORING PROGRAM REVIEWED*: No *COPY OF PRESCRIPTION DRUG MONITORING REPORT IN PATIENT ANTONIO: No Home Medications: Home Meds Degarelix [Firmagon] 80 mg SQ ASDIRECTED 12/29/18 [History] Losartan/Hydrochlorothiazide [Hyzaar 100-12.5 Tablet] 1 each PO DAILY 12/29/18 [ History] amLODIPine Besylate [Amlodipine Besylate] 5 mg PO DAILY 12/29/18 [History] Oxygen Therapy Mode: Room Air Patient Handouts: Stroke Prevention, [id number], Ischemic Stroke, Easy-to- Read, Steps to Quit Smoking Forms: ED Department Discharge Referrals: Shai Samano MD [Primary Care Provider] - - Discharge Summary/Plan Comment DC Time >30 min.: Yes (60 minutes ) - General Info Date of Service: 01/01/19 Admission Dx/Problem (Free Text: Admission Diagnosis/Problem Admission Diagnosis/Problem CVA, Cerebrovascular accident Subjective Update: Patient was seen twice today, once prior to EGD and once after. Hemoglobin was noted to be low today although patient reported he felt very good today, even better than yesterday. He did report he was mildly dizzy when he got up to have a bowel movement. Otherwise no complaints. Bowel movement was noted to be dark and tarry by nursing. Occult stool was obtained and was positive. Post -EGD patient was quite sleepy. Did communicate with me and denied any pain or other symptoms. Discussed plan for transfer and he was in agreement. Functional Status: Reports: Pain Controlled, Tolerating Diet, Ambulating, Urinating, New Symptoms (Dark Tarry stools ) - Review of Systems General: Reports: No Symptoms, Weakness (improved ). Denies: Fever, Fatigue, Malaise, Chills HEENT: Reports: No Symptoms. Denies: Headaches, Sore Throat Pulmonary: Reports: No Symptoms. Denies: Shortness of Breath, Pleuritic Chest Pain, Cough, Sputum, Hemoptysis, Wheezing Cardiovascular: Reports: No Symptoms. Denies: Chest Pain, Palpitations, Dyspnea on Exertion, Edema Gastrointestinal: Reports: Melena. Denies: Abdominal Pain, Constipation, Nausea , Vomiting Genitourinary: Reports: No Symptoms. Denies: Pain Musculoskeletal: Reports: No Symptoms Skin: Reports: No Symptoms Neurological: Reports: Difficulty Walking, Gait Disturbance. Denies: Dizziness , Headache, Numbness, Seizure, Tremors, Trouble Speaking, Change in Speech Psychiatric: Reports: Depression, Anxiety. Denies: Confusion - Patient Data Vitals - Most Recent: Last Vital Signs Temp 98.6 F 01/01/19 11:00 Pulse 69 01/01/19 10:41 Resp 12 01/01/19 11:00 BP 142/53 H 01/01/19 11:00 Pulse Ox 99 01/01/19 11:00 Weight - Most Recent: 132 lb 6.4 oz I&O - Last 24 hours: Intake & Output 12/31/18 01/01/19 01/01/19 22:59 06:59 14:59 Intake Total 735 2213 0 Output Total 1100 Balance -365 2213 0 Lab Results - Last 24 hrs: Laboratory Results - last 24 hr 12/31/18 01/01/19 01/01/19 Range/Units 05:07 05:25 05:25 WBC 6.33 (4.23-9.07) K/mm3 RBC 2.41 L (4.63-6.08) M/mm3 Hgb 7.1 L* (13.7-17.5) gm/L Hct 22.3 L (40.1-51.0) % MCV 92.5 H (79.0-92.2) fl MCH 29.5 (25.7-32.2) pg MCHC 31.8 L (32.2-35.5) g/dl RDW Std Deviation 45.3 H (35.1-43.9) fL Plt Count 185 (163-337) K/mm3 MPV 11.3 (9.4-12.3) fl Neut % (Auto) 62.9 (34.0-67.9) % Lymph % (Auto) 27.5 (21.8-53.1) % [place] % (Auto) 6.6 (5.3-12.2) % Eos % (Auto) 2.5 (0.8-7.0) Baso % (Auto) 0.2 (0.1-1.2) % Neut # (Auto) 3.98 (1.78-5.38) K/mm3 Lymph # (Auto) 1.74 (1.32-3.57) K/mm3 [place] # (Auto) 0.42 (0.30-0.82) K/mm3 Eos # (Auto) 0.16 (0.04-0.54) K/mm3 Baso # (Auto) 0.01 (0.01-0.08) K/mm3 Manual Slide Review Normal smear Sodium 144 142 (136-145) mEq/L Potassium 4.6 3.6 (3.5-5.1) mEq/L Chloride 109 H 107 (98-107) mEq/L Carbon Dioxide 27 28 (21-32) mEq/L Anion Gap 12.6 10.6 (5-15) BUN 38 H 40 H (7-18) mg/dL Creatinine 0.9 1.0 (0.7-1.3) mg/dL Est Cr Clr Drug Dosing 58.78 52.55 mL/min Estimated GFR (MDRD) > 60 > 60 (>60) mL/min BUN/Creatinine Ratio 42.2 H 40.0 H (14-18) Glucose 157 H 109 (83-115) mg/dL Lactic Acid (0.4-2.0) mmol/L Calcium 8.4 L 8.1 L (8.5-10.1) mg/dL Magnesium 1.7 L (1.8-2.4) mg/dl Iron (65-175) ug/dL TIBC (100-400) ug/dL % Saturation (20-55) % Transferrin (202-364) mg/dL Total Bilirubin 0.6 (0.2-1.0) mg/dL AST 22 (15-37) U/L ALT 15 L (16-63) U/L Alkaline Phosphatase 66 (46-116) U/L C-Reactive Protein 2.5 H* (<1.0) mg/dL Total Protein 5.6 L (6.4-8.2) g/dl Albumin 2.4 L (3.4-5.0) g/dl Globulin 3.2 gm/dL Albumin/Globulin Ratio 0.8 L (1-2) Lipase 169 (73-393) U/L Blood Type Gel Antibody Screen Crossmatch 01/01/19 01/01/19 01/01/19 Range/Units 05:25 05:25 05:25 WBC (4.23-9.07) K/mm3 RBC (4.63-6.08) M/mm3 Hgb (13.7-17.5) gm/L Hct (40.1-51.0) % MCV (79.0-92.2) fl MCH (25.7-32.2) pg MCHC (32.2-35.5) g/dl RDW Std Deviation (35.1-43.9) fL Plt Count (163-337) K/mm3 MPV (9.4-12.3) fl Neut % (Auto) (34.0-67.9) % Lymph % (Auto) (21.8-53.1) % [place] % (Auto) (5.3-12.2) % Eos % (Auto) (0.8-7.0) Baso % (Auto) (0.1-1.2) % Neut # (Auto) (1.78-5.38) K/mm3 Lymph # (Auto) (1.32-3.57) K/mm3 [place] # (Auto) (0.30-0.82) K/mm3 Eos # (Auto) (0.04-0.54) K/mm3 Baso # (Auto) (0.01-0.08) K/mm3 Manual Slide Review Sodium (136-145) mEq/L Potassium (3.5-5.1) mEq/L Chloride (98-107) mEq/L Carbon Dioxide (21-32) mEq/L Anion Gap (5-15) BUN (7-18) mg/dL Creatinine (0.7-1.3) mg/dL Est Cr Clr Drug Dosing mL/min Estimated GFR (MDRD) (>60) mL/min BUN/Creatinine Ratio (14-18) Glucose (83-115) mg/dL Lactic Acid 0.8 (0.4-2.0) mmol/L Calcium (8.5-10.1) mg/dL Magnesium (1.8-2.4) mg/dl Iron 33 L (65-175) ug/dL TIBC 180 (100-400) ug/dL % Saturation 18 L (20-55) % Transferrin 144 L (202-364) mg/dL Total Bilirubin (0.2-1.0) mg/dL AST (15-37) U/L ALT (16-63) U/L Alkaline Phosphatase (46-116) U/L C-Reactive Protein (<1.0) mg/dL Total Protein (6.4-8.2) g/dl Albumin (3.4-5.0) g/dl Globulin gm/dL Albumin/Globulin Ratio (1-2) Lipase (73-393) U/L Blood Type O POSITIVE Gel Antibody Screen Negative Crossmatch See Detail RENETTA Results - Last 24 hrs: Microbiology 01/01/19 08:00 Stool Occult Blood (RENETTA) - Final Stool / Feces 12/31/18 18:06 Helicobacter pylori Antigen - Final Stool / Feces NEGATIVE H. PYLORI AG Med Orders - Current: Current Medications Al Hydroxide/Mg Hydroxide (Mag-Al Plus) 30 ml PO Q4H PRN PRN Reason: Heartburn Last Admin: 12/31/18 02:47 Dose: 30 ml Calcium Carbonate/Glycine (Tums) 500 mg PO Q2H PRN PRN Reason: Indigestion Last Admin: 12/31/18 08:30 Dose: 500 mg Fluoxetine HCl (Prozac) 20 mg PO DAILY ADELINA Last Admin: 01/01/19 11:19 Dose: Not Given Folic Acid (Folic Acid) 1 mg PO DAILY ADELINA Last Admin: 01/01/19 10:30 Dose: Not Given Furosemide (Lasix) 40 mg IVPUSH NOW ONE Stop: 01/01/19 12:01 Hydralazine HCl (Apresoline) 10 mg IVPUSH Q8H PRN PRN Reason: Hypertension Lactated Ringer's (Ringers, Lactated) 1,000 mls @ 100 mls/hr IV ASDIRECTED [facility] Last Admin: 01/01/19 08:36 Dose: 100 mls/hr Sodium Chloride (Normal Saline) 250 mls @ 100 mls/hr IV ASDIRECTED [facility] Stop: 01/01/19 14:00 Last Admin: 01/01/19 09:33 Dose: 100 mls/hr Lorazepam (Ativan) 0.5 mg PO BID [facility] Last Admin: 01/01/19 10:30 Dose: Not Given Lorazepam (Ativan) 1 - 3 mg IVPUSH Q2H PRN; Protocol PRN Reason: withdrawl Miscellaneous Information (Remove Patch) 0 ea TRDERM ONETIME ONE Stop: 01/03/19 08:01 Miscellaneous Information (Remove Patch) 1 ea TRDERM Q24H [facility] Last Admin: 01/01/19 11:16 Dose: Not Given Multivitamins (Thera) 1 each PO DAILY [facility] Last Admin: 01/01/19 10:30 Dose: Not Given Nicotine (Habitrol) 14 mg TRDERM Q24H [facility] Last Admin: 01/01/19 11:15 Dose: Not Given Ondansetron HCl (Zofran) 4 mg IVPUSH Q4H PRN PRN Reason: Nausea Last Admin: 12/31/18 01:34 Dose: 4 mg Pantoprazole Sodium (Protonix) 40 mg PO BIDAC [facility] Last Admin: 01/01/19 08:37 Dose: Not Given Sodium Chloride (Saline Flush) 10 ml FLUSH ASDIRECTED PRN PRN Reason: Keep Vein Open Last Admin: 12/29/18 16:28 Dose: 10 ml Sucralfate (Carafate) 1 gm PO TIDAC [facility] Last Admin: 01/01/19 11:19 Dose: Not Given Thiamine HCl (Vitamin B-1) 100 mg IV DAILY [facility] Last Admin: 01/01/19 09:26 Dose: 100 mg Discontinued Medications Aspirin (Aspirin) 324 mg PO ONETIME ONE Stop: 12/30/18 08:01 Last Admin: 12/30/18 09:24 Dose: 324 mg Aspirin (Ecotrin) 325 mg PO DAILY [facility] Last Admin: 12/31/18 09:35 Dose: Not Given Bisacodyl (Dulcolax) 10 mg RECTAL ONETIME ONE Stop: 12/30/18 06:31 Last Admin: 12/30/18 09:23 Dose: Not Given Enoxaparin Sodium (Lovenox) 40 mg SUBCUT Q24H [facility] Last Admin: 12/31/18 20:20 Dose: Not Given Fentanyl (Sublimaze) Confirm Administered Dose 100 mcg .ROUTE .STK-MED ONE Stop: 01/01/19 07:22 Furosemide (Lasix) 20 mg IVPUSH ONETIME ONE Stop: 12/31/18 09:01 Last Admin: 12/31/18 08:40 Dose: 20 mg Gadobenate Dimeglumine (Multihance) 12 ml IVPUSH ONETIME ONE Stop: 12/30/18 08:02 Last Admin: 12/30/18 08:30 Dose: 12 ml Potassium Chloride/Sodium Chloride (Normal Saline With 20 Meq Kcl) 1,000 mls @ 150 mls/hr IV ASDIRECTED [facility] Last Admin: 12/29/18 18:03 Dose: 150 mls/hr Sodium Chloride (Normal Saline) 1,000 mls @ 999 mls/hr IV ONETIME ONE Stop: 12/29/18 21:20 Last Admin: 12/29/18 21:25 Dose: Not Given Magnesium Sulfate 2 gm/ Premix 50 mls @ 25 mls/hr IV ONETIME ONE Stop: 12/29/18 22:23 Last Admin: 12/29/18 21:12 Dose: 25 mls/hr Lactated Ringer's (Ringers, Lactated) 1,000 mls @ 999 mls/hr IV ONETIME ONE Stop: 12/29/18 21:37 Last Admin: 12/29/18 21:12 Dose: 999 mls/hr Lactated Ringer's (Ringers, Lactated) 1,000 mls @ 125 mls/hr IV ASDIRECTED [facility] Stop: 12/30/18 06:00 Last Admin: 12/30/18 07:12 Dose: 125 mls/hr Lactated Ringer's (Ringers, Lactated) 1,000 mls @ 999 mls/hr IV .BOLUS ONE Stop: 12/30/18 05:34 Last Admin: 12/30/18 04:35 Dose: 999 mls/hr Sodium Chloride (Normal Saline) Confirm Administered Dose 250 mls @ as directed .ROUTE .STK-MED ONE Stop: 01/01/19 09:25 Last Admin: 01/01/19 09:51 Dose: Not Given Iopamidol (Isovue-370 (76%)) 100 ml IVPUSH ONETIME ONE Stop: 12/31/18 11:19 Last Admin: 12/31/18 11:21 Dose: 100 ml Metoclopramide HCl (Reglan) 5 mg IVPUSH Q6H PRN PRN Reason: Nausea Last Admin: 12/31/18 05:07 Dose: 5 mg Pantoprazole Sodium (Protonix Iv) 40 mg IVPUSH ONETIME ONE Stop: 12/31/18 11:01 Last Admin: 12/31/18 12:32 Dose: 40 mg Pantoprazole Sodium (Protonix Iv) 40 mg IVPUSH ONETIME ONE Stop: 01/01/19 11:10 Last Admin: 01/01/19 11:22 Dose: 40 mg Potassium Chloride (Klor-Con M20) 40 meq PO BID ADELINA Stop: 12/31/18 09:01 Last Admin: 12/30/18 20:12 Dose: 40 meq Propofol (Diprivan 20 Ml) Confirm Administered Dose 200 mg .ROUTE .STK-MED ONE Stop: 01/01/19 07:22 Scopolamine (Transderm-Scop) 1.5 mg TRDERM Q72H PRN PRN Reason: Nausea/Vomiting Scopolamine (Transderm-Scop) 1.5 mg TOP ONETIME ONE Stop: 12/31/18 08:01 Last Admin: 12/31/18 08:38 Dose: 1.5 mg Sodium Chloride (Saline Flush) 10 ml FLUSH ONETIME PRN PRN Reason: Keep Vein Open Stop: 12/30/18 12:00 Last Admin: 12/31/18 11:21 Dose: 10 ml Sodium Chloride (Saline Flush) 10 ml FLUSH ONETIME ONE Stop: 12/31/18 11:19 Last Admin: 12/31/18 12:32 Dose: Not Given - Exam Quality Assessment: Reports: DVT Prophylaxis General: Reports: Alert, Oriented, Cooperative, No Acute Distress HEENT: Reports: Pupils Equal, Pupils Reactive, EOMI, Mucous Membr. Moist/[place] Neck: Reports: Supple, Trachea Midline, No JVD Lungs: Reports: Clear to Auscultation, Normal Respiratory Effort Cardiovascular: Reports: Regular Rate, Regular Rhythm GI/Abdominal Exam: Normal Bowel Sounds, Soft, Non-Tender, No Organomegaly, No Distention (Male) Exam: Deferred Rectal (Males) Exam: Deferred Back Exam: Reports: Normal Inspection, Full Range of Motion Extremities: Normal Inspection, Normal Range of Motion, Non-Tender, No Pedal Edema, Normal Capillary Refill, Other (Bandaging to arms) Skin: Reports: Warm, Dry, Intact Neurological: Reports: No New Focal Deficit, Normal Speech, Normal Tone, Sensation Intact. Denies: Normal Gait, Strength Equal Bilateral (Flaccid right arm and weak right leg) Psy/Mental Status: Reports: Alert, Anxious, Depressed. Denies: Labile Mood, Agitated, Suicidal Ideation, Homicidal Ideation, Hallucinations, Withdrawal Symptoms
[2019-01-01] MEDS ORDERED: Furosemide 40 MG/4 ML VIAL IVPUSH ONE (12:00)
--- NOTE | 2019-01-02 06:34 | OR ---
DATE OF OPERATION: 01/01/2019 SURGEON: Roland Espino MD PREOPERATIVE DIAGNOSIS: Anemia and abnormal CT scan showing a defect in the duodenum. POSTOPERATIVE DIAGNOSIS: Anemia and abnormal CT scan showing a defect in the duodenum. OPERATION PERFORMED: EGD with biopsy. FINDINGS: At the posterior portion of the duodenal bulb, was a villous growth with ulcerations. No visible vessel was noted. There was some oozing noted from the fronds. The second portion of the duodenum was free of any disease and as was the pylorus, antrum, body, and cardia of the stomach, a hiatal hernia was noted. GE junctions were located about 35 cm with erosions at the GE junction encompassing the entire circumference of the esophagus at the GE junction and extending up the entire length of the esophagus. Biopsies were taken of the ulcer and tumor mass in the duodenal bulb and the GE junction in the antrum. ANESTHESIA: Procedure was done under IV sedation. DESCRIPTION OF PROCEDURE: The patient was taken to the endoscopy room, placed in a supine position, connected to monitoring equipment, given IV sedation, bite block was inserted. Video Olympus gastroscope was placed in the posterior oropharynx, under direct vision threaded past the cricopharyngeus down the esophagus into the stomach. Stomach was insufflated and the scope passed through the pylorus to the second portion of the duodenum. Second portion of the duodenum was normal, but on the posterior portion of the duodenal bulb was a frond-like development of the mucosa with ulcerations of the mucosa. The fronds oozed a little blood. Biopsies were taken of this area. No visible vessel was seen. The rest of the duodenal bulb was unremarkable as was the pylorus. Antrum was normal, this was biopsied looking for H. pylori. J-maneuver showed a large hiatal hernia. The scope was withdrawn and the cardia and fundus was unremarkable. Scope withdrawn at the GE junction, which showed marked ulceration circumferentially and this ulcerations extended the entire surface of the esophagus and biopsies were taken at the GE junction. The patient tolerated the procedure. Specimen was sent to Pathology in labeled container and the patient will be returned to the floor. ESTIMATED BLOOD LOSS: MMODAL /[id number]
== END 2019-01-01 13:49 | DRG 64 ==
LOC: SUPCPDRO 15:59 → JD.ED 15:59 → JD.MS 18:53
PROVIDERS: ADMIT Internal Medicine Cardiovascular Disease; ATTEND Internal Medicine Cardiovascular Disease
PROC: 0DB98ZX Excision of Duodenum, Via Natural or Artificial Opening Endoscopic, Diagnostic (ICD-10-PCS; principal; 2019-01-01)
PROC: 0DB68ZX Excision of Stomach, Via Natural or Artificial Opening Endoscopic, Diagnostic (ICD-10-PCS; principal; 2019-01-01)
PROC: 0DB48ZX Excision of Esophagogastric Junction, Via Natural or Artificial Opening Endoscopic, Diagnostic (ICD-10-PCS; principal; 2019-01-01)
PROC: 30233N1 Transfusion of Nonautologous Red Blood Cells into Peripheral Vein, Percutaneous Approach (ICD-10-PCS; 2019-01-01)
DX: I63.9 Cerebral infarction, unspecified (principal); G81.91 Hemiplegia, unspecified affecting right dominant side; I21.4 Non-ST elevation (NSTEMI) myocardial infarction; K26.4 Chronic or unspecified duodenal ulcer with hemorrhage; G81.01 Flaccid hemiplegia affecting right dominant side; R20.0 Anesthesia of skin; C61 Malignant neoplasm of prostate; E87.6 Hypokalemia; I10 Essential (primary) hypertension; F17.210 Nicotine dependence, cigarettes, uncomplicated; S61.511A Laceration without foreign body of right wrist, initial encounter; R53.1 Weakness; S61.411A Laceration without foreign body of right hand, initial encounter; X78.9XXA Intentional self-harm by unspecified sharp object, initial encounter; F32.9 Major depressive disorder, single episode, unspecified; F41.9 Anxiety disorder, unspecified; E86.0 Dehydration; E78.5 Hyperlipidemia, unspecified; H54.7 Unspecified visual loss; K21.9 Gastro-esophageal reflux disease without esophagitis; M19.90 Unspecified osteoarthritis, unspecified site; D50.0 Iron deficiency anemia secondary to blood loss (chronic); D49.0 Neoplasm of unspecified behavior of digestive system; K44.9 Diaphragmatic hernia without obstruction or gangrene; K25.9 Gastric ulcer, unspecified as acute or chronic, without hemorrhage or perforation; Z79.899 Other long term (current) drug therapy
CPT/HCPCS: 36415; 80053; 80306; 81001; 82962; 83735; 84443; 84484; 85025; 85610; 85730; 93005; 96365; 99285; G0480 ×3; J3480; 36430; 70450; 70450-26; 70553; 70553-26; 74177; 74177-26; 80048; 80061; 82272; 82553; 83540; 83605; 83690; 83880; 84153; 84466; 86140; 86850; 86900; 86901; 86922; 87338; 92610-GN; 93010; 93306; 93880; 93880-26; 97110-GP; 97112-GO; 97112-GP; 97116-GP; 97162-GP; 97166-GO; 97530-GO; 97530-GP; A9270-GY; A9577; C9113; J1650; J1940; J2405; J2704; J2765; J3010; J3411; J3475; J7050; J7120; P9016; Q9967

== ENCOUNTER 2020-03-07 09:03 | Emergency (ER) | payer MEDICARE ==
[2020-03-07] MEDS ORDERED: Metoclopramide 10 MG/2 ML SDV IVPUSH ONE (09:16)
[2020-03-07] MEDS ORDERED: HYDROmorphone 0.5 MG/0.5 ML Syringe IVPUSH ONE (09:16)
--- NOTE | 2020-03-07 09:17 | EDM.PDOC ---
ED HPI GENERAL MEDICAL PROBLEM - General Chief Complaint: Lower Extremity Injury/Pain Stated Complaint: [facility] Time Seen by Provider: 03/07/20 09:12 Source of Information: Reports: Patient, EMS History Limitations: Reports: No Limitations - History of Present Illness INITIAL COMMENTS - FREE TEXT/NARRATIVE: 79-year-old male presents to the ED per [facility] from his own home. She reports that he was lying on the couch this morning and went to get up about an hour ago and got dizzy and fell to the floor in his living room. He does not think that he struck any objects. He landed hard on his left side. Denies hitting his head or losing consciousness. He had immediate pain in his left hip and was unable to get up from the floor. Patient has received 50 mcg of fentanyl IV by the [employer] and [employer] executive staff. He denies having any fever. His appetite is poor and he continues to lose weight. Patient has had a diagnosis of prostate cancer for greater than 10 years. Recently changed from Lupron injections in the abdominal wall. Started on new medication Firmagon 80units s/ c abdominal wall once a month due to elevating PSA. Imaging. He has not eaten anything yet today. He has not taken any of his home medications. Does have a mild nonproductive cough. Onset: Today Onset Date: 03/07/20 Onset Time: 08:40 Duration: Minutes: Location: Reports: Lower Extremity, Left (Pain left hip) Quality: Reports: Ache Severity: Moderate (5 out of 10) Improves with: Reports: Rest Worsens with: Reports: Movement Context: Reports: Trauma (At home.), Other. Denies: Activity, Exercise, Lifting , Sick Contact Associated Symptoms: Reports: Cough, Loss of Appetite, Malaise, Shortness of Breath (On exertion), Weakness. Denies: Confusion, Chest Pain, cough w sputum ( Nonproductive), Diaphoresis, Fever/Chills, Headaches, Nausea/Vomiting, Rash, Seizure, Syncope Treatments DIRECTOR OF [employer]: Reports: Other (see below) (Paramedics gave him fentanyl 50 mcg IV in route to the hospital.) Left Hip Pain Score (Numeric/FACES): 8 - Related Data Allergies Allergy/AdvReac Type Severity Reaction Status Date / Time No Known Allergies Allergy Verified 03/07/20 09:19 Home Meds: Home Meds Degarelix [Firmagon] 80 mg SQ ASDIRECTED 12/29/18 [History] Losartan/Hydrochlorothiazide [Hyzaar 100-12.5 Tablet] 1 each PO DAILY 12/29/18 [ History] Ascorbate Calcium [Vitamin C] 500 mg PO DAILY 03/07/20 [History] Calcium Carbonate 600 mg PO DAILY 03/07/20 [History] Clopidogrel [Plavix] 75 mg PO DAILY 03/07/20 [History] Enzalutamide [Xtandi] 40 mg PO DAILY 03/07/20 [History] FLUoxetine [PROzac] 40 mg PO DAILY 03/07/20 [History] Megestrol [Megace 40 MG/ML Susp] 800 mg PO DAILY 03/07/20 [History] Multivitamin [Multivitamins] 1 tab PO DAILY 03/07/20 [History] Pantoprazole Sodium [Protonix] 40 mg PO DAILY 03/07/20 [History] Vitamin E 400 units PO DAILY 03/07/20 [History] amLODIPine [Norvasc] 10 mg PO DAILY 03/07/20 [History] atorvaSTATin Calcium [Lipitor] 40 mg pe PO DAILY 03/07/20 [History] Past Medical History HEENT History: Reports: Cataract, Impaired Vision Cardiovascular History: Reports: Hypertension Gastrointestinal History: Reports: GERD Other Genitourinary History: Prostate Cancer Musculoskeletal History: Reports: Arthritis Neurological History: Reports: Other (See Below) (had a stroke a week ago weekness on right side) Psychiatric History: Reports: Addiction, Suicide Attempt Other Psychiatric History: Suicide attempt 12/26/18-12/27/18 Endocrine/Metabolic History: Reports: Osteopenia Oncologic (Cancer) History: Reports: Prostate (He did with cesium seed implant and subsequently Lupron injections every 3 months which was recently changed to firmagon 88 and it subcutaneously abdominal wall once monthly to gradually elevating PSA) - Infectious Disease History Infectious Disease History: Reports: Chicken Pox - Past Surgical History Male Surgical History: Reports: Other (See Below) Other Male Surgeries/Procedures: patient has seeds placed for prostrate cancer. Social & Family History - Family History HEENT: Reports: Impaired Vision Cardiac: Reports: None Respiratory: Reports: None Musculoskeletal: Reports: Arthritis Neurological: Reports: Alzheimers Disease, Cerebral Aneurysms Endocrine/Metabolic: Reports: None Oncologic: Reports: Breast, Prostate - Caffeine Use Caffeine Use: Reports: Coffee, Soda Other Caffeine Use: Daily - Living Situation & Occupation Living situation: Reports: Single Occupation: Retired Review of Systems - Review of Systems Review Of Systems: See Below Constitutional: Reports: Weakness, Other (Gradually losing weight for the last several months.). Denies: Chills, Diaphoresis, Fever Eyes: Reports: No Symptoms Ears: Reports: No Symptoms Nose: Reports: No Symptoms Mouth/Throat: Reports: Other Respiratory: Reports: Shortness of Breath (Dry mouth), Cough (Nonproductive cough). Denies: Wheezing, Pleuritic Chest Pain Cardiovascular: Reports: No Symptoms, Other (Hypertension). Denies: Chest Pain , Edema GI/Abdominal: Reports: Other (Occasional problems with constipation) Genitourinary: Reports: Other (1 prostate cancer with slow urinary stream) Musculoskeletal: Reports: Back Pain, Joint Pain (Low back pain facial pain knees hips and neck), Other (Currently left hip pain from fall this morning) Skin: Reports: No Symptoms Neurological: Reports: Dizziness, Weakness. Denies: Headache (Occasionally gets dizzy with standing. I orthostatic hypotension), Paresthesia, Pre- Existing Deficit, Seizure, Syncope, Tremors, Trouble Speaking, Difficulty Walking Psychiatric: Reports: No Symptoms ED EXAM, GENERAL - Physical Exam Exam: See Below Exam Limited By: No Limitations General Appearance: Alert, WD/WN, Mild Distress, Thin (Most cachectic in appearance), Other (In mild pain. Vital signs show temperature 37.1 with a heart rate of 98 respiratory 16 BP 150/67. O2 sats 99% on room air.) Eye Exam: Bilateral Eye: Normal Inspection (Mild blepharal pallor bilaterally.) , PERRL Throat/Mouth: Other (Often tongue are quite dry when tongue is coated shriveled. ) Head: Atraumatic, Normocephalic, Other. No: Facial Swelling, Facial Tenderness (No outward signs of any head or facial trauma) Neck: Full Range of Motion, Limited Range of Motion (Crepitus on lateral rotation.), Tender Lateral (Tenderness bilateral cervical spine which he states is chronic for him) Respiratory/Chest: No Respiratory Distress, Lungs Clear, Normal Breath Sounds, No Accessory Muscle Use, Other (Cachectic appearance with all ribs easily visible. Pain on firm compression of sternum and lateral ribs on compression.) Cardiovascular: Normal Peripheral Pulses, Regular Rate, Rhythm, No Edema, No Gallop, No Murmur, No Rub Peripheral Pulses: 2+: Carotid (L), Carotid (R), Posterior Tibial (L), Posterior Tibial (R), Dorsalis Pedis (L), Dorsalis Pedis (R) GI/Abdominal: Normal Bowel Sounds, Soft, Non-Tender, No Organomegaly, Pelvis Stable, Other (Has a palpable mass right lower quadrant of the abdomen with slight overlying ecchymoses. He states this is where he got his last Firmagon shot about 10 days ago.) (Male) Exam: No Hernia Back Exam: Normal Inspection, Decreased Range of Motion, Vertebral Tenderness ( Pain in his lumbar spine bilaterally. This is on palpation only). No: CVA Tenderness (L), CVA Tenderness (R) Extremities: Other (Patient is able to lift his right leg off the gurney and has reduced internal and external rotation. He is unable to lift his left leg off the gurney at all due to pain in the left hip. Palpation of the left hip is painful but there is no obvious swelling or obvious deformity. The foot is not currently rotated. No injuries to the either upper extremity appreciated.) Neurological: Alert, Oriented, CN II-XII Intact, Normal Cognition Psychiatric: Anxious, Other (Mildly anxious.) Skin Exam: Warm ( Moderate pain), Dry, Intact, Normal Color, No Rash, Pallor ( Mild pallor) EKG INTERPRETATION EKG Date: 03/07/20 Time: 09:37 Rhythm: Other Rate (Beats/Min): 86 Winfred: LAD-Left Winfred Deviation (-66 degrees. Left anterior fascicular block pattern.) P-Wave: Present QRS: Other (U waves present leads V1 and V2 consider old anteroseptal myocardial infarction) ST-T: Normal QT: Prolonged (Mildly prolonged) EKG Interpretation Comments: Abnormal ECG Course - Vital Signs Last Recorded V/S: Last Vital Signs Temp 37.1 C 03/07/20 09:09 Pulse 90 03/07/20 09:09 Resp 16 03/07/20 09:09 BP 150/67 H 03/07/20 09:09 Pulse Ox 99 03/07/20 09:09 - Orders/Labs/Meds Orders: Active Orders 24 hr Category Date Time Status EKG Documentation Completion [RC] STAT Care 03/07/20 09:12 Active EKG Documentation Completion [RC] STAT Care 03/07/20 09:26 Active CORONAVIRUS COVID-19 RAYSHAWN [MOLEC] Stat Lab 03/07/20 10:05 Received Dextrose 5%-0.9% NaCl [Dextrose 5%-Normal Saline] 1,000 Med 03/07/20 09:30 Active ml IV ASDIRECTED Magnesium Sulfate/Water [Magnesium Sulfate in Water Med 03/07/20 10:00 Active Premix] 4 gm Premix Bag 1 bag IV ONETIME Medication Orders Dextrose/Sodium Chloride (Dextrose 5%-Normal Saline) 1,000 mls @ 150 mls/hr IV ASDIRECTED ADELINA Last Admin: 03/07/20 09:48 Dose: 150 mls/hr Magnesium Sulfate 4 gm/ Premix 50 mls @ 12.5 mls/hr IV ONETIME ONE Stop: 03/07/20 13:59 Last Admin: 03/07/20 10:17 Dose: 12.5 mls/hr Labs: Laboratory Tests 03/07/20 03/07/20 03/07/20 Range/Units 09:20 09:20 09:20 WBC 13.02 H (4.23-9.07) K/mm3 RBC 3.69 L (4.63-6.08) M/mm3 Hgb 10.8 L D (13.7-17.5) gm/dl Hct 32.2 L (40.1-51.0) % MCV 87.3 D (79.0-92.2) fl MCH 29.3 (25.7-32.2) pg MCHC 33.5 (32.2-35.5) g/dl RDW Std Deviation 41.6 (35.1-43.9) fL Plt Count 321 D (163-337) K/mm3 MPV 10.3 (9.4-12.3) fl Neut % (Auto) 76.5 H (34.0-67.9) % Lymph % (Auto) 15.1 L (21.8-53.1) % [place] % (Auto) 7.5 (5.3-12.2) % Eos % (Auto) 0.5 L (0.8-7.0) Baso % (Auto) 0.2 (0.1-1.2) % Neut # (Auto) 9.97 H (1.78-5.38) K/mm3 Lymph # (Auto) 1.96 (1.32-3.57) K/mm3 [place] # (Auto) 0.97 H (0.30-0.82) K/mm3 Eos # (Auto) 0.07 (0.04-0.54) K/mm3 Baso # (Auto) 0.02 (0.01-0.08) K/mm3 Manual Slide Review Normal smear ESR (0-15) mm/hr PT 10.6 (9.7-12.0) SECONDS INR 0.97 APTT 26 (22-31) SECONDS Sodium 138 (136-145) mEq/L Potassium 3.6 (3.5-5.1) mEq/L Chloride 104 (98-107) mEq/L Carbon Dioxide 22 (21-32) mEq/L Anion Gap 15.6 H (5-15) BUN 25 H (7-18) mg/dL Creatinine 1.2 (0.7-1.3) mg/dL Est Cr Clr Drug Dosing 36.46 mL/min Estimated GFR (MDRD) 59 (>60) mL/min BUN/Creatinine Ratio 20.8 H (14-18) Glucose 110 (83-115) mg/dL Calcium 9.0 (8.5-10.1) mg/dL Magnesium 1.4 L (1.8-2.4) mg/dl Total Bilirubin 0.4 (0.2-1.0) mg/dL AST 18 (15-37) U/L ALT 16 (16-63) U/L Alkaline Phosphatase 65 (46-116) U/L Troponin I < 0.017 (0.00-0.056) ng/mL C-Reactive Protein 1.1 H* (<1.0) mg/dL NT-Pro-B Natriuret Pep (0-450) pg/mL Total Protein 6.4 (6.4-8.2) g/dl Albumin 3.2 L (3.4-5.0) g/dl Globulin 3.2 gm/dL Albumin/Globulin Ratio 1.0 (1-2) 03/07/20 03/07/20 Range/Units 09:20 09:20 WBC (4.23-9.07) K/mm3 RBC (4.63-6.08) M/mm3 Hgb (13.7-17.5) gm/dl Hct (40.1-51.0) % MCV (79.0-92.2) fl MCH (25.7-32.2) pg MCHC (32.2-35.5) g/dl RDW Std Deviation (35.1-43.9) fL Plt Count (163-337) K/mm3 MPV (9.4-12.3) fl Neut % (Auto) (34.0-67.9) % Lymph % (Auto) (21.8-53.1) % [place] % (Auto) (5.3-12.2) % Eos % (Auto) (0.8-7.0) Baso % (Auto) (0.1-1.2) % Neut # (Auto) (1.78-5.38) K/mm3 Lymph # (Auto) (1.32-3.57) K/mm3 [place] # (Auto) (0.30-0.82) K/mm3 Eos # (Auto) (0.04-0.54) K/mm3 Baso # (Auto) (0.01-0.08) K/mm3 Manual Slide Review ESR 45 H (0-15) mm/hr PT (9.7-12.0) SECONDS INR APTT (22-31) SECONDS Sodium (136-145) mEq/L Potassium (3.5-5.1) mEq/L Chloride (98-107) mEq/L Carbon Dioxide (21-32) mEq/L Anion Gap (5-15) BUN (7-18) mg/dL Creatinine (0.7-1.3) mg/dL Est Cr Clr Drug Dosing mL/min Estimated GFR (MDRD) (>60) mL/min BUN/Creatinine Ratio (14-18) Glucose (83-115) mg/dL Calcium (8.5-10.1) mg/dL Magnesium (1.8-2.4) mg/dl Total Bilirubin (0.2-1.0) mg/dL AST (15-37) U/L ALT (16-63) U/L Alkaline Phosphatase (46-116) U/L Troponin I (0.00-0.056) ng/mL C-Reactive Protein (<1.0) mg/dL NT-Pro-B Natriuret Pep 787 H (0-450) pg/mL Total Protein (6.4-8.2) g/dl Albumin (3.4-5.0) g/dl Globulin gm/dL Albumin/Globulin Ratio (1-2) Meds: Medications Generic Name Dose Route Start Last Admin Trade Name Freq PRN Reason Stop Dose Admin Dextrose/Sodium Chloride 1,000 mls @ 150 mls/hr 03/07/20 09:30 03/07/20 09:48 Dextrose 5%-Normal Saline IV 150 mls/hr ASDIRECTED ADELINA Administration Magnesium Sulfate 4 gm/ Premix 50 mls @ 12.5 mls/hr 03/07/20 10:00 03/07/20 10:17 IV 03/07/20 13:59 12.5 mls/hr ONETIME ONE Administration Discontinued Medications Generic Name Dose Route Start Last Admin Trade Name Freq PRN Reason Stop Dose Admin Hydromorphone HCl 0.5 mg 03/07/20 09:16 03/07/20 09:44 Dilaudid IVPUSH 03/07/20 09:17 0.5 mg ONETIME ONE Administration Metoclopramide HCl 5 mg 03/07/20 09:16 03/07/20 09:46 Reglan IVPUSH 03/07/20 09:17 5 mg ONETIME ONE Administration - Radiology Interpretation Free Text/Narrative:: 79-year-old male presents to the ED per [facility] after falling at home this morning. He states he was lying on the couch and went to get up and became quite dizzy likely due to orthostatic hypotension and fell to the floor landing hard on his left hip. Denies hitting his head and he has full recollection of the events. States it took him over an hour to be able to obtain help. He lives alone. He is unable to weight-bear on his left hip. Examination suggest fracture left hip. No other injuries are evident. Patient has a history of prostate cancer for many years. Currently being treated with Firmagon subcutaneous injections once monthly in the abdominal wall recently replacing Lupron shots which he has been using for many years . His PSA has been gradually elevating. Therefore the possibility of a pathologic fracture exist. And he will have a portable chest x-ray carried out. He will have 1 view of the pelvis and left femur x-ray done. Routine labs including coags to be done as he likely is going to need surgery. IV will be D5 normal saline at 150 mils per hour. And Dilaudid 0.5 mg IV with Reglan 5 mg IV for pain and nausea relief. - Re-Assessments/Exams Free Text/Narrative Re-Assessment/Exam: 03/07/20 09:41 chest x-ray done portably reveals stigmata of COPD with a large bleb in the left lower lung field. The lungs are otherwise clear. Cardiac silhouette is within normal limits. No bony metastatic disease is evident in any of the ribs. X-ray of the pelvis reveals cesium seed implants in his prostatic bed. No fractures in the pelvis are identified. It does reveal a fracture through the left femoral neck of the femur. This is confirmed again on femur x-ray of the left side with no other fractures identified in the femur. 03/07/20 10:00 Labs reveal a mildly elevated white blood cell count at 13.02 with auto differential showing 76.5% neutrophils. Hemoglobin is low at 10.8 with hematocrit of 32.2. MCV is normal at 87.3. Platelet count is normal at 321,000. PT is 10.6 with an INR of 0.97. PTT is 26. Sodium 138 with a potassium of 3.6. Chloride is 104 with a bicarb of 22. Anion gap is minimally elevated at 15.6. BUN is 25 with a creatinine of 1.2. GFR is 59. Glucose is 110 with a calcium of 9.0. Magnesium low at 1.4. Bilirubin is 0.4 liver function is otherwise normal. Troponin I is less than 0.017. C-reactive protein 1.1. BNP mildly elevated at 787. Total protein is 6.4 with an albumin fraction of 3.2 03/07/20 10:06 spoken through the 1 call nurse at [facility] in [place] and the patient be transferred to that facility. Dr. Moseley from the department of orthopedics has accepted care. A Covid- 19 test was ordered on this patient as he will be going to the operating room. Patient will be transferred to [facility] per ground ambulance. Patient reports pain is controlled at this point time 03/07/20 11:05 Covid -19 testing is negative. Departure - Departure Time of Disposition: 11:06 Disposition: DC/Tfer to Acute Hospital 02 Condition: Fair Clinical Impression: Prostate cancer, Fracture of neck of femur, hip, Hypomagnesemia - Discharge Information *PRESCRIPTION DRUG MONITORING PROGRAM REVIEWED*: Not Applicable *COPY OF PRESCRIPTION DRUG MONITORING REPORT IN PATIENT ANTONIO: Not Applicable Referrals: Shai Samano MD [Primary Care Provider] - Forms: ED Department Discharge Additional Instructions: Patient will be transferred to [facility] for definitive orthopedic surgical management is no orthopedic surgery is available here. Dr. Moseley is the accepting physician Sepsis Event Note - Focused Exam Vital Signs: Vital Signs Temp Pulse Resp BP Pulse Ox 03/07/20 09:09 37.1 C 90 16 150/67 H 99 Date Exam was Performed: 03/07/20 Time Exam was Performed: 11:05 - My Orders Last 24 Hours: My Active Orders 03/07/20 09:12 EKG Documentation Completion [RC] STAT 03/07/20 09:26 EKG Documentation Completion [RC] STAT 03/07/20 09:30 Dextrose 5%-0.9% NaCl [Dextrose 5%-Normal Saline] 1,000 ml IV ASDIRECTED 03/07/20 10:00 Magnesium Sulfate/Water [Magnesium Sulfate in Water Premix] 4 gm Premix Bag 1 bag IV ONETIME 03/07/20 10:05 CORONAVIRUS COVID-19 RAYSHAWN [MOLEC] Stat - Assessment/Plan Last 24 Hours: My Active Orders 03/07/20 09:12 EKG Documentation Completion [RC] STAT 03/07/20 09:26 EKG Documentation Completion [RC] STAT 03/07/20 09:30 Dextrose 5%-0.9% NaCl [Dextrose 5%-Normal Saline] 1,000 ml IV ASDIRECTED 03/07/20 10:00 Magnesium Sulfate/Water [Magnesium Sulfate in Water Premix] 4 gm Premix Bag 1 bag IV ONETIME 03/07/20 10:05 CORONAVIRUS COVID-19 RAYSHAWN [MOLEC] Stat
[2020-03-07] MEDS ORDERED: Dextrose 5%-0.9% NaCl 1,000 ML IV SCH (09:30)
[2020-03-07] MEDS ORDERED: Magnesium Sulfate/Water 4 GM in Premix Bag 1 BAG IV ONE (10:00)
--- NOTE | 2020-03-07 10:34 | CR ---
Chest: Frontal view of the chest was obtained. Comparison: No prior chest imaging is available. Heart size and mediastinum are normal. Lungs are clear with no acute parenchymal change. Bony structures are grossly intact. Impression: 1. Nothing acute is seen on frontal chest x-ray. Diagnostic code #1 This report was dictated in MDT
--- NOTE | 2020-03-07 10:34 | CR ---
Left femur: AP and lateral views of the left femur were obtained. Comparison: No prior femur study. Slightly impacted subcapital fracture within the left hip is noted. Radiation implant seeds are noted within the prostate gland. Moderate joint space narrowing is seen medially within the left knee. Diffuse vascular calcification is seen. Bony structures are osteopenic. Mild joint space narrowing is noted within the left hip. Impression: 1. Mildly impacted subcapital fracture within the left hip. 2. Other findings as described above which are nonacute. Diagnostic code #3 This report was dictated in MDT
--- NOTE | 2020-03-07 10:34 | CR ---
Pelvis: AP view of the pelvis was obtained. Comparison: No previous pelvis study. Joint space narrowing is noted within both hips, slightly worse on the right side. Sclerotic line is noted within the subcapital region left hip compatible with mildly impacted subcapital fracture. Radiation implant seeds are noted within the prostate gland. Vascular calcification is noted. Disc space narrowing is noted within the visualized lower lumbar spine. Osteopenia is seen. Impression: 1. Impacted subcapital fracture within the left hip. 2. Degenerative change as noted above with osteopenia and vascular calcification. Diagnostic code #3 This report was dictated in MDT
== END 2020-03-07 11:18 ==
LOC: JD.ED 09:03
DX: S72.012A Unspecified intracapsular fracture of left femur, initial encounter for closed fracture (principal); I10 Essential (primary) hypertension; K21.9 Gastro-esophageal reflux disease without esophagitis; E83.42 Hypomagnesemia; C61 Malignant neoplasm of prostate; Z79.02 Long term (current) use of antithrombotics/antiplatelets; W18.30XA Fall on same level, unspecified, initial encounter; Y92.009 Unspecified place in unspecified non-institutional (private) residence as the place of occurrence of the external cause
CPT/HCPCS: 36415; 71045; 72170; 73552; 80053; 83735; 83880; 84484; 85025; 85610; 85652; 85730; 86140; 93005; 96365; 96375; 99285; J1170; J2765; J3475; J7042; U0002; 93010

== ENCOUNTER 2020-08-16 07:53 | Emergency (ER) | payer OTHER, MEDICARE ==
--- NOTE | 2020-08-16 08:12 | EDM.PDOC ---
ED HPI GENERAL MEDICAL PROBLEM - General Chief Complaint: Abdominal Pain Stated Complaint: [facility] Time Seen by Provider: 08/16/20 08:12 Source of Information: Reports: Patient, Custodial Records - History of Present Illness INITIAL COMMENTS - FREE TEXT/NARRATIVE: 80-year-old male presents to the ED from [facility] where he has resided for the last 3 or 4 months. He states he has been having loose diarrhea stools usually once or twice per day for the last 2 weeks. He has undergone some medication changes recently but he is not sure what. Sounds like his antiandrogenic hormone( xtandi) and perhaps is anti gonadotropin inhibitors.-The Xtandi can cause diarrhea. Here he usually reports 2 loose bowel movements every morning and then usually better the rest of the day. He has a history of metastatic prostate cancer. Cancer was diagnosed in 1999 and was treated with cesium seed implants. He is currently on 2 medications for prostate cancer control. He states anytime he eats it goes right through him. He continues to lose weight. He is also on megestrol to try and stimulate his appetite. When he was aided up this morning he nearly passed out in the bathroom but staff prevented him from falling to the floor. He was very lightheaded and dizzy and weak in his lower extremities. He states he has some mild nausea but no vomiting. Does have a productive sounding cough and occasionally expectorates some grayish sputum. He has known severe COPD treated with oxygen intermittently? . His O2 sats here between 92 and 94% at rest. Onset: Unknown/Unsure (He reports loose diarrhea for the last 2 weeks or more.) Duration: Week(s):, Chronic, Getting Worse Location: Reports: Generalized (Neurolyse sense of weakness particularly in his lower extremities with decreased appetite.) Quality: Reports: Other Severity: Moderate (Generalized weakness) Improves with: Reports: None Worsens with: Reports: Other Context: Reports: Other (Known metastatic prostate cancer.). Denies: Activity, Exercise, Lifting, Sick Contact, Trauma Associated Symptoms: Reports: Cough, cough w sputum, Loss of Appetite, Malaise, Nausea/Vomiting, Shortness of Breath, Weakness (Nausea without vomiting generalized weakness particular in his lower extremities.). 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 - Related Data Allergies Allergy/AdvReac Type Severity Reaction Status Date / Time No Known Allergies Allergy Verified 08/16/20 08:04 Home Meds: Home Meds Losartan/Hydrochlorothiazide [Hyzaar 100-12.5 Tablet] 1 each PO DAILY 12/29/18 [History] Ascorbate Calcium [Vitamin C] 500 mg PO DAILY 03/07/20 [History] Calcium Carbonate 600 mg PO DAILY 03/07/20 [History] Clopidogrel [Plavix] 75 mg PO DAILY 03/07/20 [History] FLUoxetine [PROzac] 40 mg PO DAILY 03/07/20 [History] Megestrol [Megace 40 MG/ML Susp] 800 mg PO DAILY 03/07/20 [History] Multivitamin [Multivitamins] 1 tab PO DAILY 03/07/20 [History] Pantoprazole Sodium [Protonix] 40 mg PO DAILY 03/07/20 [History] Vitamin E 400 units PO DAILY 03/07/20 [History] atorvaSTATin Calcium [Lipitor] 40 mg pe PO DAILY 03/07/20 [History] Cholecalciferol (Vitamin D3) [Vitamin D3] 1,000 unit PO DAILY 08/16/20 [History] Docusate Sodium 100 mg PO ASDIRECTED 08/16/20 [History] Levothyroxine [Synthroid] 50 mcg PO ACBREAKFAST 08/16/20 [History] Loperamide HCl [Imodium A-D] 2 mg PO ASDIRECTED 08/16/20 [History] Magnesium Chloride [Slow-Mag] 71.5 mg PO BID #60 tablet.dr 08/16/20 [Rx] Menthol [[place]] 1 tab PO ASDIRECTED PRN 08/16/20 [History] Nicotine [Nicotine Patch] 1 each TD DAILY 08/16/20 [History] Oxybutynin 5 mg PO BID 08/16/20 [History] Simethicone 80 mg PO Q6H PRN 08/16/20 [History] Tamsulosin HCl [Flomax] 0.4 mg PO DAILY 08/16/20 [History] hydroCHLOROthiazide [Hydrochlorothiazide] 12.5 mg PO DAILY 08/16/20 [History] levoFLOXacin [Levaquin] 250 mg PO DAILY #8 tab 08/16/20 [Rx] polyethylene glycoL 3350 [MiraLAX] 17 gm PO ASDIRECTED 08/16/20 [History] Past Medical History HEENT History: Reports: Cataract, Impaired Vision Cardiovascular History: Reports: Hypertension Gastrointestinal History: Reports: GERD Other Gastrointestinal History: ulcer Other Genitourinary History: Prostate Cancer Musculoskeletal History: Reports: Arthritis Neurological History: Reports: Other (See Below) (had a stroke a week ago weekness on right side) Other Neuro History: stroke 7 months ago Psychiatric History: Reports: Addiction, Suicide Attempt Other Psychiatric History: Suicide attempt 12/26/18-12/27/18 Endocrine/Metabolic History: Reports: Osteopenia Oncologic (Cancer) History: Reports: Prostate (He did with cesium seed implant and subsequently Lupron injections every 3 months which was recently changed to firmagon 88 and it subcutaneously abdominal wall once monthly to gradually elevating PSA) - Infectious Disease History Infectious Disease History: Reports: Chicken Pox - Past Surgical History Male Surgical History: Reports: Other (See Below) Other Male Surgeries/Procedures: patient has seeds placed for prostrate cancer. Social & Family History - Family History HEENT: Reports: Impaired Vision Cardiac: Reports: None Respiratory: Reports: None Musculoskeletal: Reports: Arthritis Neurological: Reports: Alzheimers Disease, Cerebral Aneurysms Endocrine/Metabolic: Reports: None Oncologic: Reports: Breast, Prostate - Caffeine Use Caffeine Use: Reports: Coffee, Soda Other Caffeine Use: Daily - Living Situation & Occupation Living situation: Reports: Single Occupation: Retired ED ROS GENERAL - Review of Systems Review Of Systems: See Below Constitutional: Reports: Malaise, Weakness, Fatigue, Decreased Appetite (Continues to slowly lose weight.), Weight Loss. Denies: Fever, Chills HEENT: Reports: Other Respiratory: Reports: Shortness of Breath (Dentures), Wheezing, Cough, Sputum. Denies: Pleuritic Chest Pain, Hemoptysis, Other (Patient collar) Cardiovascular: Reports: Dyspnea on Exertion, Lightheadedness. Denies: Blood Pressure Problem, Edema, Orthopnea, Palpitations, PND Endocrine: Reports: Fatigue GI/Abdominal: Reports: Diarrhea, Decreased Appetite, Nausea. Denies: Abdominal Pain, Black Stool, Bloody Stool, Difficulty Swallowing, Distension, Flatus, Hematemesis, Hematochezia, Melena, Mucous in Stool, Stool Incontinence : Reports: Frequency (Occasional nausea), Other (Nocturia x1.) Musculoskeletal: Reports: Joint Pain (He sips lower back neck and shoulders.) Skin: Reports: Bruising (Was easily but he is on Plavix.) Neurological: Reports: Dizziness, Difficulty Walking, Weakness. Denies: Confusion, Headache, Seizure, Syncope, Trouble Speaking Psychiatric: Reports: No Symptoms Hematologic/Lymphatic: Reports: No Symptoms Immunologic: Reports: No Symptoms ED EXAM, GI/ABD - Physical Exam Exam: See Below Exam Limited By: No Limitations General Appearance: Alert, WD/WN, No Apparent Distress, Thin, Other (Mild great tone to his skin. Temperature is 36.9 heart rate was 88 and sinus respiratory is 18 with O2 sats of 92 to 94% on room air BP is 116/51.) Eyes: Bilateral: Normal Appearance (Mild blepharal pallor. No scleral icterus identified) Throat/Mouth: Other (Lung is dry and coated.) Head: Atraumatic ( He is wearing lower dentures.), Normocephalic, Other (No outward signs of head or neck trauma.) Neck: Normal Inspection, Limited Range of Motion, Tender Lateral. No: Lymphadenopathy (L), Lymphadenopathy (R) (Dates no worse than normal.) Respiratory/Chest: Decreased Breath Sounds, Rhonchi ( Scattered expiratory wheezes. Scattered rhonchi upper anterior chest with a productive sounding cough at times.), Wheezing (Decreased air entry to the lower 50% of the lungs bilaterally.), Other (Ribs are easily visible.). No: Lungs Clear, Normal Breath Sounds, Chest Non-Tender, Respiratory Distress Cardiovascular: Normal Peripheral Pulses, Regular Rate, Rhythm, No Edema, No Gallop, No Murmur, No Rub GI/Abdominal Exam: Normal Bowel Sounds, Soft, Non-Tender, No Organomegaly, No Abnormal Bruit, No Mass, Pelvis Stable, Other (Surgical scars appreciated.) Back Exam: Vertebral Tenderness (Along the lumbar spine.), Other (Mild kyphosis thoracic spine.) Extremities: Other. No: Normal Range of Motion (Evidence of osteoarthritic change both knees both hips with very limited internal and external rotation of either hip.), Pedal Edema Neurological: Alert, Oriented, CN II-XII Intact, Normal Cognition Psychiatric: Normal Affect, Normal Mood Skin Exam: Warm, Dry, Intact, Ecchymosis (Both lateral left proximal leg and right medial leg. Peer to be several days old.), Other (Grayish color to his skin.) #1 Interpretation EKG Date: 08/16/20 Time: 08:26 Rhythm: NSR Rate (Beats/Min): 85 [place]: LAD-Left [place] Deviation (-55 degrees.) P-Wave: Present QRS: Other (Left anterior fascicular block pattern. Nonspecific intraventricular conduction delay.) ST-T: Other (T wave flattening in leads I and aVL nonspecific finding) QT: Prolonged (Mildly prolonged) EKG Interpretation Comments: Abnormal ECG Course - Vital Signs Last Recorded V/S: Last Vital Signs Temp 36.9 C 08/16/20 08:07 Pulse 88 08/16/20 08:07 Resp 18 08/16/20 08:07 BP 116/51 L 08/16/20 08:07 Pulse Ox 92 L 08/16/20 08:07 - Orders/Labs/Meds Orders: Active Orders 24 hr Category Date Time Status EKG Documentation Completion [RC] STAT Care 08/16/20 08:19 Active Chest 1V Frontal [CR] Stat Exams 08/16/20 08:18 Taken CULTURE URINE [RM] Routine Lab 08/16/20 09:08 Received STOOL CULTURE/SHIGA TOXIN [MREF] Stat Lab 08/16/20 08:20 Ordered WBC, STOOL [OP] Stat Lab 08/16/20 08:20 Ordered Dextrose 5%-Lactated Ringers 1,000 ml Med 08/16/20 08:30 Active IV ASDIRECTED Medication Orders Dextrose/Lactated Ringer's (Dextrose 5%-Lactated Ringers) 1,000 mls @ 150 mls/hr IV ASDIRECTED ADELINA Last Admin: 08/16/20 08:43 Dose: 150 mls/hr Documented by: PRETTY Labs: Laboratory Tests 08/16/20 08/16/20 08/16/20 Range/Units 07:55 07:55 07:55 WBC 12.20 H (4.23-9.07) K/mm3 RBC 3.52 L (4.63-6.08) M/mm3 Hgb 9.1 L D (13.7-17.5) gm/dl Hct 29.2 L (40.1-51.0) % MCV 83.0 D (79.0-92.2) fl MCH 25.9 (25.7-32.2) pg MCHC 31.2 L (32.2-35.5) g/dl RDW Std Deviation 45.0 H (35.1-43.9) fL Plt Count 300 (163-337) K/mm3 MPV 10.4 (9.4-12.3) fl Neut % (Auto) 85.1 H (34.0-67.9) % Lymph % (Auto) 7.5 L (21.8-53.1) % [place] % (Auto) 6.3 (5.3-12.2) % Eos % (Auto) 0.7 L (0.8-7.0) Baso % (Auto) 0.2 (0.1-1.2) % Neut # (Auto) 10.37 H (1.78-5.38) K/mm3 Lymph # (Auto) 0.92 L (1.32-3.57) K/mm3 [place] # (Auto) 0.77 (0.30-0.82) K/mm3 Eos # (Auto) 0.09 (0.04-0.54) K/mm3 Baso # (Auto) 0.02 (0.01-0.08) K/mm3 Manual Slide Review Abnormal smear ESR (0-15) mm/hr PT 12.1 H (9.7-11.7) SECONDS INR 1.13 APTT 30 (22-31) SECONDS Sodium 137 (136-145) mEq/L Potassium 3.6 (3.5-5.1) mEq/L Chloride 102 (98-107) mEq/L Carbon Dioxide 21 (21-32) mEq/L Anion Gap 17.6 H (5-15) BUN 21 H (7-18) mg/dL Creatinine 1.3 (0.7-1.3) mg/dL Est Cr Clr Drug Dosing 38.72 mL/min Estimated GFR (MDRD) 53 (>60) mL/min BUN/Creatinine Ratio 16.2 (14-18) Glucose 124 H (83-115) mg/dL Serum Osmolality 290 (280-300) mosm/kg Calcium 8.7 (8.5-10.1) mg/dL Magnesium 1.1 L (1.8-2.4) mg/dl Total Bilirubin 0.6 (0.2-1.0) mg/dL AST 16 (15-37) U/L ALT 19 (16-63) U/L Alkaline Phosphatase 94 (46-116) U/L Troponin I < 0.017 (0.00-0.056) ng/mL C-Reactive Protein 14.9 H* (<1.0) mg/dL NT-Pro-B Natriuret Pep (0-450) pg/mL Total Protein 6.7 (6.4-8.2) g/dl Albumin 2.7 L (3.4-5.0) g/dl Globulin 4.0 gm/dL Albumin/Globulin Ratio 0.7 L (1-2) Prostate Specific Ag (0.1-4.0) ng/mL Urine Color (Yellow) Urine Appearance (Clear) Urine pH (5.0-8.0) Ur Specific [place] (1.005-1.030) Urine Protein (Negative) Urine Glucose (UA) (Negative) Urine Ketones (Negative) Urine Occult Blood (Negative) Urine Nitrite (Negative) Urine Bilirubin (Negative) Urine Urobilinogen (0.2-1.0) Ur Leukocyte Esterase (Negative) Urine RBC (0-5) /hpf Urine WBC (0-5) /hpf Ur Squamous Epith Cells (0-5) /hpf Amorphous Sediment (NOT SEEN) /hpf Urine Bacteria (FEW) /hpf Urine Mucus (FEW) /hpf Ketones (0.0-0.3) mM 08/16/2020 08/16/20 Range/Units 07:55 07:55 07:55 WBC (4.23-9.07) K/mm3 RBC (4.63-6.08) M/mm3 Hgb (13.7-17.5) gm/dl Hct (40.1-51.0) % MCV (79.0-92.2) fl MCH (25.7-32.2) pg MCHC (32.2-35.5) g/dl RDW Std Deviation (35.1-43.9) fL Plt Count (163-337) K/mm3 MPV (9.4-12.3) fl Neut % (Auto) (34.0-67.9) % Lymph % (Auto) (21.8-53.1) % [place] % (Auto) (5.3-12.2) % Eos % (Auto) (0.8-7.0) Baso % (Auto) (0.1-1.2) % Neut # (Auto) (1.78-5.38) K/mm3 Lymph # (Auto) (1.32-3.57) K/mm3 [place] # (Auto) (0.30-0.82) K/mm3 Eos # (Auto) (0.04-0.54) K/mm3 Baso # (Auto) (0.01-0.08) K/mm3 Manual Slide Review ESR 80 H (0-15) mm/hr PT (9.7-11.7) SECONDS INR APTT (22-31) SECONDS Sodium (136-145) mEq/L Potassium (3.5-5.1) mEq/L Chloride (98-107) mEq/L Carbon Dioxide (21-32) mEq/L Anion Gap (5-15) BUN (7-18) mg/dL Creatinine (0.7-1.3) mg/dL Est Cr Clr Drug Dosing mL/min Estimated GFR (MDRD) (>60) mL/min BUN/Creatinine Ratio (14-18) Glucose (83-115) mg/dL Serum Osmolality (280-300) mosm/kg Calcium (8.5-10.1) mg/dL Magnesium (1.8-2.4) mg/dl Total Bilirubin (0.2-1.0) mg/dL AST (15-37) U/L ALT (16-63) U/L Alkaline Phosphatase (46-116) U/L Troponin I (0.00-0.056) ng/mL C-Reactive Protein (<1.0) mg/dL NT-Pro-B Natriuret Pep 1058 H (0-450) pg/mL Total Protein (6.4-8.2) g/dl Albumin (3.4-5.0) g/dl Globulin gm/dL Albumin/Globulin Ratio (1-2) Prostate Specific Ag (0.1-4.0) ng/mL Urine Color (Yellow) Urine Appearance (Clear) Urine pH (5.0-8.0) Ur Specific [place] (1.005-1.030) Urine Protein (Negative) Urine Glucose (UA) (Negative) Urine Ketones (Negative) Urine Occult Blood (Negative) Urine Nitrite (Negative) Urine Bilirubin (Negative) Urine Urobilinogen (0.2-1.0) Ur Leukocyte Esterase (Negative) Urine RBC (0-5) /hpf Urine WBC (0-5) /hpf Ur Squamous Epith Cells (0-5) /hpf Amorphous Sediment (NOT SEEN) /hpf Urine Bacteria (FEW) /hpf Urine Mucus (FEW) /hpf Ketones 0.36 (0.0-0.3) mM 08/16/20 08/16/20 Range/Units 07:55 09:08 WBC (4.23-9.07) K/mm3 RBC (4.63-6.08) M/mm3 Hgb (13.7-17.5) gm/dl Hct (40.1-51.0) % MCV (79.0-92.2) fl MCH (25.7-32.2) pg MCHC (32.2-35.5) g/dl RDW Std Deviation (35.1-43.9) fL Plt Count (163-337) K/mm3 MPV (9.4-12.3) fl Neut % (Auto) (34.0-67.9) % Lymph % (Auto) (21.8-53.1) % [place] % (Auto) (5.3-12.2) % Eos % (Auto) (0.8-7.0) Baso % (Auto) (0.1-1.2) % Neut # (Auto) (1.78-5.38) K/mm3 Lymph # (Auto) (1.32-3.57) K/mm3 [place] # (Auto) (0.30-0.82) K/mm3 Eos # (Auto) (0.04-0.54) K/mm3 Baso # (Auto) (0.01-0.08) K/mm3 Manual Slide Review ESR (0-15) mm/hr PT (9.7-11.7) SECONDS INR APTT (22-31) SECONDS Sodium (136-145) mEq/L Potassium (3.5-5.1) mEq/L Chloride (98-107) mEq/L Carbon Dioxide (21-32) mEq/L Anion Gap (5-15) BUN (7-18) mg/dL Creatinine (0.7-1.3) mg/dL Est Cr Clr Drug Dosing mL/min Estimated GFR (MDRD) (>60) mL/min BUN/Creatinine Ratio (14-18) Glucose (83-115) mg/dL Serum Osmolality (280-300) mosm/kg Calcium (8.5-10.1) mg/dL Magnesium (1.8-2.4) mg/dl Total Bilirubin (0.2-1.0) mg/dL AST (15-37) U/L ALT (16-63) U/L Alkaline Phosphatase (46-116) U/L Troponin I (0.00-0.056) ng/mL C-Reactive Protein (<1.0) mg/dL NT-Pro-B Natriuret Pep (0-450) pg/mL Total Protein (6.4-8.2) g/dl Albumin (3.4-5.0) g/dl Globulin gm/dL Albumin/Globulin Ratio (1-2) Prostate Specific Ag 11.4 H (0.1-4.0) ng/mL Urine Color Yellow (Yellow) Urine Appearance Clear (Clear) Urine pH 5.0 (5.0-8.0) Ur Specific [place] 1.020 (1.005-1.030) Urine Protein Trace H (Negative) Urine Glucose (UA) Negative (Negative) Urine Ketones Negative (Negative) Urine Occult Blood Negative (Negative) Urine Nitrite Negative (Negative) Urine Bilirubin Negative (Negative) Urine Urobilinogen 0.2 (0.2-1.0) Ur Leukocyte Esterase 1+ H (Negative) Urine RBC 0-5 (0-5) /hpf Urine WBC 20-30 H (0-5) /hpf Ur Squamous Epith Cells 0-5 (0-5) /hpf Amorphous Sediment Rare H (NOT SEEN) /hpf Urine Bacteria Many H (FEW) /hpf Urine Mucus Not seen (FEW) /hpf Ketones (0.0-0.3) mM Meds: Medications Generic Name Dose Route Start Last Admin Trade Name Freq PRN Reason Stop Dose Admin Dextrose/Lactated Ringer's 1,000 mls @ 150 mls/hr 08/16/20 08:30 08/16/20 08:43 Dextrose 5%-Lactated Ringers IV 150 mls/hr ASDIRECTED ADELINA Administration Discontinued Medications Generic Name Dose Route Start Last Admin Trade Name Freq PRN Reason Stop Dose Admin Ceftriaxone Sodium Confirm 08/16/20 12:44 08/16/20 12:55 Rocephin Administered 08/16/20 12:45 Not Given Dose 2 gm IV .STK-MED ONE Magnesium Sulfate 4 gm/ Premix 50 mls @ 12.5 mls/hr 08/16/20 09:26 08/16/20 09:35 IV 08/16/20 13:25 12.5 mls/hr ONETIME ONE Administration Ceftriaxone Sodium 2 gm/ 100 mls @ 200 mls/hr 08/16/20 09:32 08/16/20 13:10 Sodium Chloride IV 08/16/20 10:01 200 mls/hr ONETIME ONE Administration Sodium Chloride Confirm 08/16/20 12:44 08/16/20 12:55 Normal Saline Administered 08/16/20 12:45 Not Given Dose 50 mls @ as directed .ROUTE .STK-MED ONE Sodium Chloride Confirm 08/16/20 12:53 08/16/20 13:11 Normal Saline Administered 08/16/20 12:54 Not Given Dose 100 mls @ as directed .ROUTE .STK-MED ONE - Radiology Interpretation Free Text/Narrative:: 80-year-old male presents to the ED per [facility] history of persistent diarrhea which she states is once or twice daily for the last 2 weeks. Increased weakness and near syncopal event occurred this morning when they got him up into the bathroom. Diarrhea apparently is yellowish in color. Patient has known metastatic cancer of the prostate gland and is continued to slowly lose weight and his health is failing. Initial diagnosis of prostate cancer in 2-year 1999 treated with cesium seed implants. He is currently on 2 different medications for prostate cancer. He denies being on any antibiotics recently. He appears thin and nearly cachectic in appearance. Plan IV D5 LR at 125 mils per hour. Routine labs to be performed as well as a chest x-ray due to productive cough and known COPD. He has had recent test for influenza and Covid 19 and both were reportedly negative. - Re-Assessments/Exams Free Text/Narrative Re-Assessment/Exam: 08/16/20 09:15 portable chest x-ray carried out. It reveals mild hyperinflated lung reynolds bilaterally. There appears to be very early streaky infiltrate( ground glass appearance) along the right heart border and right lower lobe of the lung. Possible early pneumonia. No pleural effusions no pneumothorax cardiac silhouette normal 08/16/20 09:20 White count is elevated at 12.20 with 85% neutrophils on the auto differential. Hemoglobin is low at 9.1 with hematocrit of 29.2. MCV is 83. Platelet count 300,000. The smear reveals platelets to be normal and adequate. Mild neutrophilia and lymphopenia. PT is 12.1 with an INR of 1.13. PTT is 30. Sodium 137 with potassium of 3.6. Chloride 102 with a bicarb of 21. Anion gap is elevated at 17.6. BUN is 21 with a creatinine of 1.3. Glucose is 124. Serum osmolality 290. Calcium 8.7. Magnesium is very low at 1.1. Liver function normal troponin I is less than 0.017. C-reactive protein is elevated at 14.9. BNP is elevated at 1058. Total protein is 6.7 with an albumin fraction of 2.7. PSA specific antigen is elevated at 11.4. Serum ketones minimally elevated at 0.36. 08/16/20 09:31 ESR has returned elevated at 80. Will be started on magnesium 4 g intravenously. He will be given dose of Rocephin 2 g intravenously due to suspect early pneumonia right lower lobe 08/16/20 10:27 The urinalysis reveals 1+ leukocyte esterase and the micro reveals 20-30 white blood cells per high-power field suggesting possible source for an infection. Urine culture has been ordered. 08/16/20 12:55 Patient is going to be finishing up his 4 g of magnesium intravenously shortly and then will be transferred back to [facility] for convalescent care and continued antibiotic usage with Levaquin to 250 mg once daily. Departure - Departure Time of Disposition: 13:46 Disposition: DC/Tfer to [facility] [place] 64 Condition: Poor Clinical Impression: Prostate cancer metastatic to bone, Hypomagnesemia, Infiltrate of right lung present on chest x-ray Urinary tract infection Qualifiers: Urinary tract infection type: site unspecified Hematuria presence: without hematuria Qualified Code(s): N39.0 - Urinary tract infection, site not specified Anemia Qualifiers: Anemia type: unspecified type Qualified Code(s): D64.9 - Anemia, unspecified Diarrhea Qualifiers: Diarrhea type: unspecified type Qualified Code(s): R19.7 - Diarrhea, unspecified - Discharge Information *PRESCRIPTION DRUG MONITORING PROGRAM REVIEWED*: Not Applicable *COPY OF PRESCRIPTION DRUG MONITORING REPORT IN PATIENT ANTONIO: Not Applicable Prescriptions: levoFLOXacin [Levaquin] 250 mg PO DAILY #8 tab Magnesium Chloride [Slow-Mag] 71.5 mg PO BID #60 tablet. Instructions: Hypomagnesemia, Urinary Tract Infection, Adult Referrals: Shai Samano MD [Primary Care Provider] - Forms: ED Department Discharge Additional Instructions: Evaluation in the emergency room today in regards to generalized weakness and gradual failing health primarily secondary to diffuse metastatic prostate cancer. Identified hypomagnesemia which is due to poor nutritional intake. Suggest Slow-Mag tablet twice daily for the next month and then have serum magnesium checked to see if further treatment is required. Also identified a urinary tract infection with 20-30+ cells per high-power field and a mildly elevated white blood cell count without any definite fever. Chest x-ray also suggested a possible very minor early infiltrate right lower lobe. Therefore you were given a dose of antibiotic Rocephin 2 g intravenously in the emergency department and you will have to take antibiotic Levaquin to 50 mg once daily for the next 8 days starting tomorrow morning. Of note the Levaquin cannot be taken at the same time as any vitamins, calcium supplements or the magnesium supplements they must be taken at least 2 hours apart Sepsis Event Note (ED) - Evaluation Sepsis Screening Result: No Definite Risk - Focused Exam Vital Signs: Vital Signs Temp Pulse Resp BP Pulse Ox 08/16/20 08:07 36.9 C 88 18 116/51 L 92 L - My Orders Last 24 Hours: My Active Orders 08/16/20 08:18 Chest 1V Frontal [CR] Stat 08/16/20 08:19 EKG Documentation Completion [RC] STAT 08/16/20 08:20 STOOL CULTURE/SHIGA TOXIN [MREF] Stat WBC, STOOL [OP] Stat 08/16/20 08:30 Dextrose 5%-Lactated Ringers 1,000 ml IV ASDIRECTED 08/16/20 09:08 CULTURE URINE [RM] Routine - Assessment/Plan Last 24 Hours: My Active Orders 08/16/20 08:18 Chest 1V Frontal [CR] Stat 08/16/20 08:19 EKG Documentation Completion [RC] STAT 08/16/20 08:20 STOOL CULTURE/SHIGA TOXIN [MREF] Stat WBC, STOOL [OP] Stat 08/16/20 08:30 Dextrose 5%-Lactated Ringers 1,000 ml IV ASDIRECTED 08/16/20 09:08 CULTURE URINE [RM] Routine
[2020-08-16] MEDS ORDERED: Dextrose 5%-Lactated Ringers 1,000 ML IV SCH (08:30)
[2020-08-16] MEDS ORDERED: Magnesium Sulfate/Water 4 GM in Premix Bag 1 BAG IV ONE (09:26)
[2020-08-16] MEDS ORDERED: cefTRIAXone 2 GM in Sodium Chloride 0.9% 100 ML IV ONE (09:32)
[2020-08-16] MEDS ORDERED: Sodium Chloride 0.9% 50 ML ONE (12:44)
[2020-08-16] MEDS ORDERED: cefTRIAXone 2 GM AdvVial IV ONE (12:44)
[2020-08-16] MEDS ORDERED: Sodium Chloride 0.9% 100 ML ONE (12:53)
== END 2020-08-16 14:50 ==
LOC: JD.ED 07:53
DX: N39.0 Urinary tract infection, site not specified (principal); R19.7 Diarrhea, unspecified; D64.9 Anemia, unspecified; C61 Malignant neoplasm of prostate; C79.51 Secondary malignant neoplasm of bone; E83.42 Hypomagnesemia; R91.8 Other nonspecific abnormal finding of lung field; I10 Essential (primary) hypertension; K21.9 Gastro-esophageal reflux disease without esophagitis; Z79.02 Long term (current) use of antithrombotics/antiplatelets; Z79.899 Other long term (current) drug therapy
CPT/HCPCS: 36415; 71045; 80053; 81001; 82009; 83735; 83880; 83930; 84153; 84484; 85025; 85610; 85652; 85730; 86140; 87086; 93005; 96365; 96366; 96368; 99284; J0696; J3475; J7050; J7121; 87088; 87186; 93010

== ENCOUNTER 2021-07-07 11:00 | Emergency (ER) | payer MEDICARE ==
--- NOTE | 2021-07-07 12:21 | EDM.PDOC ---
ED HPI GENERAL MEDICAL PROBLEM - General Chief Complaint: Gastrointestinal Problem Stated Complaint: [facility] Time Seen by Provider: 07/07/21 12:21 - History of Present Illness INITIAL COMMENTS - FREE TEXT/NARRATIVE: 81-year-old male brought in by outside EMS. He had a history of passing out after a BM and nursing staff noticed some blood from his rectum. Patient states earlier today he had a rough BM and had to push pretty hard with it. He does not remember but we was reported to us that he passed out and then awoke. Nursing did notice some bright red blood and a clot. The patient has had problems with hemorrhoids in the past. It is unclear to me if he has had prior problems with passing out with BMs or if he has ever been diagnosed with neurocardiogenic syncope. The patient denies any abdominal pain and is otherwise feeling quite well at this time. Patient is on Plavix. - Related Data Allergies Allergy/AdvReac Type Severity Reaction Status Date / Time No Known Allergies Allergy Verified 08/16/20 08:04 Home Meds: Home Meds Calcium Carbonate 1,500 mg PO DAILY 03/07/20 [History] Clopidogrel [Plavix] 75 mg PO DAILY 03/07/20 [History] FLUoxetine [PROzac] 40 mg PO DAILY 03/07/20 [History] Multivitamin [Multivitamins] 1 tab PO DAILY 03/07/20 [History] Pantoprazole Sodium [Protonix] 40 mg PO DAILY 03/07/20 [History] Vitamin E 400 units PO DAILY 03/07/20 [History] atorvaSTATin Calcium [Lipitor] 40 mg PO BEDTIME 03/07/20 [History] Cholecalciferol (Vitamin D3) [Vitamin D3] 1,000 unit PO DAILY 08/16/20 [History] Levothyroxine [Synthroid] 50 mcg PO ACBREAKFAST 08/16/20 [History] Loperamide HCl [Imodium A-D] 2 mg PO ASDIRECTED PRN 08/16/20 [History] Simethicone 80 mg PO Q6H PRN 08/16/20 [History] Tamsulosin HCl [Flomax] 0.8 mg PO BEDTIME 08/16/20 [History] hydroCHLOROthiazide [Hydrochlorothiazide] 12.5 mg PO DAILY 08/16/20 [History] polyethylene glycoL 3350 [MiraLAX] 17 gm PO DAILY PRN 08/16/20 [History] Acetaminophen [Acetaminophen Extra Strength] 500 mg PO ASDIRECTED PRN 07/07/21 [History] Acetaminophen [Aphen] 2 tab PO Q4H PRN 07/07/21 [History] Alum Hydrox/Mag Hydrox/Simeth [Mag-Al Plus] 20 ml PO ASDIRECTED PRN 07/07/21 [History] Ascorbic Acid [C-500] 500 mg PO DAILY 07/07/21 [History] Calcium Carbonate [Tums] 500 mg PO ASDIRECTED PRN 07/07/21 [History] Cholestyramine/Sucrose [Cholestyramine] 4 gm PO 1600 07/07/21 [History] Ferrous Sulfate [Slow Fe] 142 mg PO DAILY 07/07/21 [History] Fluconazole 150 mg PO ONETIME 07/07/21 [History] Hydrocortisone [Hydrocortisone 1% Oint] 1 applic TOP BID PRN 07/07/21 [History] Losartan [Cozaar] 50 mg PO DAILY 07/07/21 [History] Megestrol [Megace 40 MG/ML Susp] 400 mg PO DAILY 07/07/21 [History] Mirtazapine 15 mg PO BEDTIME 07/07/21 [History] Nystatin [Nystatin Crm] 1 applic TOP BID 07/07/21 [History] Ondansetron [Zofran ODT] 1 tab PO ASDIRECTED PRN 07/07/21 [History] Pramoxine HCl [Cerave Itch Relief] 1 applic TOP BID PRN 07/07/21 [History] Triamcinolone Acetonide [Triamcinolone Acetonide 0.1% Crm] 1 applic TOP BID PRN 07/07/21 [History] Past Medical History HEENT History: Reports: Cataract, Impaired Vision Cardiovascular History: Reports: Hypertension Respiratory History: Reports: None Gastrointestinal History: Reports: GERD Other Gastrointestinal History: ulcer Other Genitourinary History: Prostate Cancer Musculoskeletal History: Reports: Arthritis Neurological History: Reports: Other (See Below) Other Neuro History: stroke 7 months ago Psychiatric History: Reports: Addiction, Suicide Attempt Other Psychiatric History: Suicide attempt 12/26/18-12/27/18 Endocrine/Metabolic History: Reports: Osteopenia Hematologic History: Reports: None Immunologic History: Reports: None Oncologic (Cancer) History: Reports: Prostate Dermatologic History: Reports: None - Infectious Disease History Infectious Disease History: Reports: Chicken Pox - Past Surgical History HEENT Surgical History: Reports: Eye Surgery, Oral Surgery, Tonsillectomy Cardiovascular Surgical History: Reports: None Male Surgical History: Reports: Other (See Below) Other Male Surgeries/Procedures: patient has seeds placed for prostrate cancer. Musculoskeletal Surgical History: Reports: None Oncologic Surgical History: Reports: Other (See Below) Other Oncologic Surgeries/Procedures: Prostate biopsy x2 Social & Family History - Family History HEENT: Reports: Impaired Vision Cardiac: Reports: None Respiratory: Reports: None Musculoskeletal: Reports: Arthritis Neurological: Reports: Alzheimers Disease, Cerebral Aneurysms Endocrine/Metabolic: Reports: None Oncologic: Reports: Breast, Prostate - Tobacco Use Tobacco Use Status *Q: Never Tobacco User - Caffeine Use Caffeine Use: Reports: Coffee, Soda Other Caffeine Use: Daily - Recreational Drug Use Recreational Drug Use: No - Living Situation & Occupation Living situation: Reports: Single Occupation: Retired ED ROS GENERAL - Review of Systems Review Of Systems: See Below Constitutional: Reports: No Symptoms HEENT: Reports: No Symptoms Respiratory: Reports: No Symptoms Cardiovascular: Reports: No Symptoms GI/Abdominal: Reports: Constipation. Denies: Abdominal Pain, Diarrhea : Reports: No Symptoms Musculoskeletal: Reports: No Symptoms Skin: Reports: No Symptoms Neurological: Reports: No Symptoms Psychiatric: Reports: No Symptoms Hematologic/Lymphatic: Reports: No Symptoms Immunologic: Reports: No Symptoms ED EXAM, GENERAL - Physical Exam Exam: See Below Exam Limited By: No Limitations General Appearance: Alert, No Apparent Distress Head: Atraumatic, Normocephalic Neck: Normal Inspection, Supple, Non-Tender, Full Range of Motion Respiratory/Chest: No Respiratory Distress, Lungs Clear, Normal Breath Sounds Cardiovascular: Regular Rate, Rhythm, No Edema, No Murmur GI/Abdominal: Normal Bowel Sounds, Soft, Non-Tender Rectal (Males) Exam: Normal Rectal Tone, Heme + Stool (Stool is weakly Hemoccult positive we had some mucousy stool with some bright red streaks in it.), Other (Stool noted) Back Exam: Normal Inspection. No: CVA Tenderness (L), CVA Tenderness (R) Neurological: Alert, Oriented, Other (Patient is oriented to date time location and name) #1 Interpretation EKG Date: 07/07/21 Rhythm: NSR Rate (Beats/Min): 98 [place]: LAD-Left [place] Deviation P-Wave: Present QRS: Other (Interventricular conduction delay possible Q waves in V1 V2 versus widening from interventricular conduction delay) ST-T: Normal QT: Normal Comparison: No Change (No significant change from 08/16/2020) EKG Interpretation Comments: Abnormal EKG Course - Vital Signs Last Recorded V/S: Last Vital Signs Temp 36.8 C 07/07/21 11:08 Pulse 95 07/07/21 11:08 Resp 18 07/07/21 11:08 BP 130/81 07/07/21 11:08 Pulse Ox 97 07/07/21 11:08 - Orders/Labs/Meds Orders: Active Orders 24 hr Category Date Time Status Magnesium Sulfate/Water [Magnesium Sulfate in Water 2 Med 07/07/21 13:52 Active GM/50 ML] 2 gm Premix Bag 1 bag IV ONETIME EKG 12 Lead [EK] Stat Ther 07/07/21 11:20 Ordered Medication Orders Magnesium Sulfate 2 gm/ Premix 50 mls @ 25 mls/hr IV ONETIME ONE Stop: 07/07/21 15:51 Last Admin: 07/07/21 13:58 Dose: 25 mls/hr Documented by: CASEY Labs: Laboratory Tests 07/07/21 07/07/21 07/07/21 Range/Units 11:40 11:40 11:40 WBC 10.25 H (4.23-9.07) K/mm3 RBC 3.32 L (4.63-6.08) M/mm3 Hgb 8.8 L (13.7-17.5) gm/dl Hct 28.0 L (40.1-51.0) % MCV 84.3 (79.0-92.2) fl MCH 26.5 (25.7-32.2) pg MCHC 31.4 L (32.2-35.5) g/dl RDW Std Deviation 51.6 H (35.1-43.9) fL Plt Count 302 (163-337) K/mm3 MPV 10.3 (9.4-12.3) fl Neut % (Auto) 67.9 (34.0-67.9) % Lymph % (Auto) 20.7 L (21.8-53.1) % [place] % (Auto) 6.7 (5.3-12.2) % Eos % (Auto) 3.9 (0.8-7.0) Baso % (Auto) 0.3 (0.1-1.2) % Neut # (Auto) 6.96 H (1.78-5.38) K/mm3 Lymph # (Auto) 2.12 (1.32-3.57) K/mm3 [place] # (Auto) 0.69 (0.30-0.82) K/mm3 Eos # (Auto) 0.40 (0.04-0.54) K/mm3 Baso # (Auto) 0.03 (0.01-0.08) K/mm3 Sodium 142 (136-145) mEq/L Potassium 3.7 (3.5-5.1) mEq/L Chloride 112 H (98-107) mEq/L Carbon Dioxide 15 L (21-32) mEq/L Anion Gap 18.7 H (5-15) BUN 34 H (7-18) mg/dL Creatinine 1.8 H (0.7-1.3) mg/dL Est Cr Clr Drug Dosing 35.93 mL/min Estimated GFR (MDRD) 36 (>60) mL/min BUN/Creatinine Ratio 18.9 H (14-18) Glucose 108 H (70-99) mg/dL Calcium 8.3 L (8.5-10.1) mg/dL Magnesium 1.0 L (1.8-2.4) mg/dL Total Bilirubin 0.3 (0.2-1.0) mg/dL AST 15 (15-37) U/L ALT 17 (16-63) U/L Alkaline Phosphatase 87 (46-116) U/L Troponin I < 0.017 (0.00-0.056) ng/mL Total Protein 6.4 (6.4-8.2) g/dl Albumin 2.6 L (3.4-5.0) g/dl Globulin 3.8 gm/dL Albumin/Globulin Ratio 0.7 L (1-2) Meds: Medications Generic Name Dose Route Start Last Admin Trade Name Freq PRN Reason Stop Dose Admin Magnesium Sulfate 2 gm/ Premix 50 mls @ 25 mls/hr 07/07/21 13:52 07/07/21 13:58 IV 07/07/21 15:51 25 mls/hr ONETIME ONE Administration - Re-Assessments/Exams Free Text/Narrative Re-Assessment/Exam: 07/07/21 13:58 Magnesium came back quite low at 1.0 we will give him 2 g of IV mag and then start him on Mag-Ox 400 mg daily. 07/07/21 15:27 Patient is doing well anticipate discharge when the infusion is done. Departure - Departure Time of Disposition: 15:28 Disposition: DC/Tfer to SNF 03 Clinical Impression: Vasovagal episode, Constipation, Hypomagnesemia - Discharge Information Referrals: Shai Samano MD [Primary Care Provider] - Forms: ED Department Discharge Additional Instructions: Return to the emergency room with any questions problems or worsening symptoms. If symptoms continue consider outpatient cardiac rhythm monitoring. Start magnesium oxide 400 mg daily. This may help with the constipation as well as limit potential rhythm disorders from the heart. Recheck magnesium level in 1 week Sepsis Event Note (ED) - Evaluation Sepsis Screening Result: No Definite Risk - Focused Exam Vital Signs: Vital Signs Temp Pulse Resp BP Pulse Ox 07/07/21 11:08 36.8 C 95 18 130/81 97 - My Orders Last 24 Hours: My Active Orders 07/07/21 11:20 EKG 12 Lead [EK] Stat 07/07/21 13:52 Magnesium Sulfate/Water [Magnesium Sulfate in Water 2 GM/50 ML] 2 gm Premix Bag 1 bag IV ONETIME - Assessment/Plan Last 24 Hours: My Active Orders 07/07/21 11:20 EKG 12 Lead [EK] Stat 07/07/21 13:52 Magnesium Sulfate/Water [Magnesium Sulfate in Water 2 GM/50 ML] 2 gm Premix Bag 1 bag IV ONETIME
[2021-07-07] MEDS ORDERED: Magnesium Sulfate/Water 2 GM in Premix Bag 1 BAG IV ONE (13:52)
== END 2021-07-07 16:28 ==
LOC: JD.ED 11:00
DX: K59.00 Constipation, unspecified (principal); R55 Syncope and collapse; E83.42 Hypomagnesemia; I10 Essential (primary) hypertension; K21.9 Gastro-esophageal reflux disease without esophagitis; Z79.899 Other long term (current) drug therapy
CPT/HCPCS: 36415; 80053; 83735; 84484; 85025; 93005; 96365; 96366; 99285; J3475; 93010; 99283

== ENCOUNTER 2021-07-12 11:12 | Emergency (ER) | payer MEDICARE ==
[2021-07-12] MEDS ORDERED: Sodium Chloride 0.9% 10 ML Syringe FLUSH PRN (11:27)
[2021-07-12] MEDS ORDERED: Sodium Chloride 0.9% 1,000 ML IV STA (11:27)
[2021-07-12] MEDS ORDERED: cefTRIAXone 2 GM in Sodium Chloride 0.9% 100 ML IV ONE (13:17)
[2021-07-12] MEDS ORDERED: Bisacodyl 10 MG Supp RECTAL ONE (13:18)
--- NOTE | 2021-07-12 13:29 | EDM.PDOC ---
ED HPI GENERAL MEDICAL PROBLEM - General Chief Complaint: Gastrointestinal Problem Stated Complaint: JOSEPHINE AMB Time Seen by Provider: 07/12/21 11:26 Source of Information: Reports: Patient, RN Notes Reviewed History Limitations: Reports: No Limitations - History of Present Illness INITIAL COMMENTS - FREE TEXT/NARRATIVE: Patient is an 81-year-old male presenting to the emergency department from [facility] with complaints of rectal bleeding. Symptoms of been occurring since Saturday. Staff report that he had some bloody stools on Saturday and Saturday. None on Saturday and then with a describes a large, maroon-colored stool today. Patient reports that he has been constipated and having to strain to have bowel movements. On Saturday, he was seen in this emergency department after experiencing syncopal episode and blood in his stool. At that time patient reports that he was straining to have a bowel movement as well. Patient does not have use of his lower extremities due to history of CVA. He states that he feels really well right now. Denies any abdominal pain. He has had no nausea or vomiting. Denies any dizziness. - Related Data Allergies Allergy/AdvReac Type Severity Reaction Status Date / Time No Known Allergies Allergy Verified 08/16/20 08:04 Home Meds: Home Meds Calcium Carbonate 1,500 mg PO DAILY 03/07/20 [History] Clopidogrel [Plavix] 75 mg PO DAILY 03/07/20 [History] FLUoxetine [PROzac] 40 mg PO DAILY 03/07/20 [History] Multivitamin [Multivitamins] 1 tab PO DAILY 03/07/20 [History] Pantoprazole Sodium [Protonix] 40 mg PO DAILY 03/07/20 [History] Vitamin E 400 units PO DAILY 03/07/20 [History] atorvaSTATin Calcium [Lipitor] 40 mg PO BEDTIME 03/07/20 [History] Cholecalciferol (Vitamin D3) [Vitamin D3] 1,000 unit PO DAILY 08/16/20 [History] Levothyroxine [Synthroid] 50 mcg PO ACBREAKFAST 08/16/20 [History] Loperamide HCl [Imodium A-D] 2 mg PO ASDIRECTED PRN 08/16/20 [History] Simethicone 80 mg PO Q6H 08/16/20 [History] Tamsulosin HCl [Flomax] 0.8 mg PO BEDTIME 08/16/20 [History] hydroCHLOROthiazide [Hydrochlorothiazide] 12.5 mg PO DAILY 08/16/20 [History] polyethylene glycoL 3350 [MiraLAX] 17 gm PO DAILY PRN 08/16/20 [History] Acetaminophen [Aphen] 2 tab PO Q4H PRN 07/07/21 [History] Alum Hydrox/Mag Hydrox/Simeth [Mag-Al Plus] 20 ml PO ASDIRECTED PRN 07/07/21 [History] Ascorbic Acid [C-500] 500 mg PO DAILY 07/07/21 [History] Cholestyramine/Sucrose [Cholestyramine] 4 gm PO 1600 07/07/21 [History] Ferrous Sulfate [Slow Fe] 142 mg PO DAILY 07/07/21 [History] Hydrocortisone [Hydrocortisone 1% Oint] 1 applic TOP BID PRN 07/07/21 [History] Losartan [Cozaar] 50 mg PO DAILY 07/07/21 [History] Megestrol [Megace 40 MG/ML Susp] 400 mg PO DAILY 07/07/21 [History] Mirtazapine 15 mg PO BEDTIME 07/07/21 [History] Nystatin [Nystatin Crm] 1 applic TOP BID 07/07/21 [History] Ondansetron [Zofran ODT] 1 tab PO Q6H PRN 07/07/21 [History] Pramoxine HCl [Cerave Itch Relief] 1 applic TOP BID PRN 07/07/21 [History] Triamcinolone Acetonide [Triamcinolone Acetonide 0.1% Crm] 1 applic TOP BID PRN 07/07/21 [History] Acetaminophen [Acetaminophen Extra Strength] 500 mg PO DAILY PRN 07/12/21 [History] Calcium Carbonate [Tums] 200 mg PO DAILY PRN 07/12/21 [History] Cefdinir 300 mg PO BID 10 Days #20 capsule 07/12/21 [Rx] Ipratropium/Albuterol Sulfate [Iprat-Albut 0.5-3(2.5) mg/3 ml] 1 inh NEB QID 07/12/21 [History] Magnesium Oxide 400 mg PO QAM 07/12/21 [History] Past Medical History HEENT History: Reports: Cataract, Impaired Vision Cardiovascular History: Reports: Hypertension Respiratory History: Reports: None Gastrointestinal History: Reports: GERD Other Gastrointestinal History: ulcer Other Genitourinary History: Prostate Cancer Musculoskeletal History: Reports: Arthritis Neurological History: Reports: Other (See Below) Other Neuro History: stroke 7 months ago Psychiatric History: Reports: Addiction, Suicide Attempt Other Psychiatric History: Suicide attempt 12/26/18-12/27/18 Endocrine/Metabolic History: Reports: Osteopenia Hematologic History: Reports: None Immunologic History: Reports: None Oncologic (Cancer) History: Reports: Prostate Dermatologic History: Reports: None - Infectious Disease History Infectious Disease History: Reports: Chicken Pox - Past Surgical History HEENT Surgical History: Reports: Eye Surgery, Oral Surgery, Tonsillectomy Cardiovascular Surgical History: Reports: None Male Surgical History: Reports: Other (See Below) Other Male Surgeries/Procedures: patient has seeds placed for prostrate cancer. Musculoskeletal Surgical History: Reports: None Oncologic Surgical History: Reports: Other (See Below) Other Oncologic Surgeries/Procedures: Prostate biopsy x2 Social & Family History - Family History HEENT: Reports: Impaired Vision Cardiac: Reports: None Respiratory: Reports: None Musculoskeletal: Reports: Arthritis Neurological: Reports: Alzheimers Disease, Cerebral Aneurysms Endocrine/Metabolic: Reports: None Oncologic: Reports: Breast, Prostate - Tobacco Use Tobacco Use Status *Q: Current Some Day Tobacco User Years of Tobacco use: 65 Packs/Tins Daily: 0.5 - Caffeine Use Caffeine Use: Reports: Coffee Other Caffeine Use: Daily - Recreational Drug Use Recreational Drug Use: No - Living Situation & Occupation Living situation: Reports: Single Occupation: Retired ED ROS GENERAL - Review of Systems Review Of Systems: See Below Constitutional: Reports: No Symptoms HEENT: Reports: No Symptoms Respiratory: Reports: No Symptoms Cardiovascular: Reports: No Symptoms Endocrine: Reports: No Symptoms GI/Abdominal: Reports: Bloody Stool, Constipation. Denies: Abdominal Pain, Nausea, Vomiting : Reports: No Symptoms Musculoskeletal: Reports: No Symptoms Skin: Reports: No Symptoms Neurological: Reports: No Symptoms. Denies: Dizziness Psychiatric: Reports: No Symptoms Hematologic/Lymphatic: Reports: No Symptoms Immunologic: Reports: No Symptoms ED EXAM, GI/ABD - Physical Exam Exam: See Below Exam Limited By: No Limitations General Appearance: Alert, WD/WN, No Apparent Distress Respiratory/Chest: No Respiratory Distress, Lungs Clear, Normal Breath Sounds, No Accessory Muscle Use, Chest Non-Tender Cardiovascular: Normal Peripheral Pulses, Regular Rate, Rhythm, No Edema, No Gallop, No JVD, No Murmur, No Rub GI/Abdominal Exam: Normal Bowel Sounds, Soft, Non-Tender, No Organomegaly, No Distention, No Abnormal Bruit, No Mass, Pelvis Stable Rectal (Males) Exam: Heme + Stool, Other (Palpable hard of stool high in the rectal vault.). No: Bloody Stool Neurological: Alert, Oriented, CN II-XII Intact, Normal Cognition, Normal Gait, Normal Reflexes, No Motor/Sensory Deficits Psychiatric: Normal Affect, Normal Mood Skin Exam: Warm, Dry, Intact, Normal Color, No Rash Course - Vital Signs Last Recorded V/S: Last Vital Signs Temp 97 F 07/12/21 11:17 Pulse 92 07/12/21 11:17 Resp 16 07/12/21 11:17 BP 129/76 07/12/21 11:17 Pulse Ox 99 07/12/21 11:17 - Orders/Labs/Meds Orders: Active Orders 24 hr Category Date Time Status Peripheral IV Care [RC] . DIRECTED Care 07/12/21 11:27 Active Sodium Chloride 0.9% [Normal Saline] 1,000 ml Med 07/12/21 11:27 Active IV NOW Sodium Chloride 0.9% [Saline Flush] Med 07/12/21 11:27 Active 10 ml FLUSH ASDIRECTED PRN Peripheral IV Insertion Adult [OM.PC] Stat Oth 07/12/21 11:27 Ordered Medication Orders Sodium Chloride (Normal Saline) 1,000 mls @ 100 mls/hr IV NOW STA Stop: 07/12/21 21:26 Last Infusion: 07/12/21 13:18 Dose: 999 mls/hr Documented by: Admin: 07/12/21 11:45 Dose: 100 mls/hr Documented by: CHRISTO Sodium Chloride (Sodium Chloride 0.9% 10 Ml Syringe) 10 ml FLUSH ASDIRECTED PRN PRN Reason: Keep Vein Open Last Admin: 07/12/21 11:45 Dose: 10 ml Documented by: CHRISTO Labs: Laboratory Tests 07/12/21 07/12/21 07/12/21 Range/Units 11:40 11:40 11:40 WBC 9.05 (4.23-9.07) K/mm3 RBC 3.17 L (4.63-6.08) M/mm3 Hgb 8.4 L (13.7-17.5) gm/dl Hct 27.1 L (40.1-51.0) % MCV 85.5 (79.0-92.2) fl MCH 26.5 (25.7-32.2) pg MCHC 31.0 L (32.2-35.5) g/dl RDW Std Deviation 54.6 H (35.1-43.9) fL Plt Count 265 (163-337) K/mm3 MPV 11.0 (9.4-12.3) fl Neut % (Auto) 72.4 H (34.0-67.9) % Lymph % (Auto) 17.1 L (21.8-53.1) % [place] % (Auto) 7.7 (5.3-12.2) % Eos % (Auto) 2.3 (0.8-7.0) Baso % (Auto) 0.3 (0.1-1.2) % Neut # (Auto) 6.54 H (1.78-5.38) K/mm3 Lymph # (Auto) 1.55 (1.32-3.57) K/mm3 [place] # (Auto) 0.70 (0.30-0.82) K/mm3 Eos # (Auto) 0.21 (0.04-0.54) K/mm3 Baso # (Auto) 0.03 (0.01-0.08) K/mm3 PT 10.6 (9.7-12.0) SECONDS INR 0.95 APTT 23.6 (21.7-31.4) SECONDS Sodium 143 (136-145) mEq/L Potassium 3.7 (3.5-5.1) mEq/L Chloride 114 H (98-107) mEq/L Carbon Dioxide 14 L (21-32) mEq/L Anion Gap 18.7 H (5-15) BUN 50 H (7-18) mg/dL Creatinine 2.5 H (0.7-1.3) mg/dL Est Cr Clr Drug Dosing 21.92 mL/min Estimated GFR (MDRD) 25 (>60) mL/min BUN/Creatinine Ratio 20.0 H (14-18) Glucose 122 H (70-99) mg/dL Calcium 7.9 L (8.5-10.1) mg/dL Magnesium (1.8-2.4) mg/dL Total Bilirubin 0.3 (0.2-1.0) mg/dL AST 23 (15-37) U/L ALT 28 (16-63) U/L Alkaline Phosphatase 83 (46-116) U/L Total Protein 6.3 L (6.4-8.2) g/dl Albumin 2.6 L (3.4-5.0) g/dl Globulin 3.7 gm/dL Albumin/Globulin Ratio 0.7 L (1-2) Urine Color (Yellow) Urine Appearance (Clear) Urine pH (5.0-8.0) Ur Specific [place] (1.005-1.030) Urine Protein (Negative) Urine Glucose (UA) (Negative) Urine Ketones (Negative) Urine Occult Blood (Negative) Urine Nitrite (Negative) Urine Bilirubin (Negative) Urine Urobilinogen (0.2-1.0) Ur Leukocyte Esterase (Negative) Urine RBC (0-5) /hpf Urine WBC (0-5) /hpf Ur Epithelial Cells (0-5) /hpf Urine Bacteria (FEW) /hpf Urine Mucus (FEW) /hpf 07/12/21 07/12/21 Range/Units 11:40 12:10 WBC (4.23-9.07) K/mm3 RBC (4.63-6.08) M/mm3 Hgb (13.7-17.5) gm/dl Hct (40.1-51.0) % MCV (79.0-92.2) fl MCH (25.7-32.2) pg MCHC (32.2-35.5) g/dl RDW Std Deviation (35.1-43.9) fL Plt Count (163-337) K/mm3 MPV (9.4-12.3) fl Neut % (Auto) (34.0-67.9) % Lymph % (Auto) (21.8-53.1) % [place] % (Auto) (5.3-12.2) % Eos % (Auto) (0.8-7.0) Baso % (Auto) (0.1-1.2) % Neut # (Auto) (1.78-5.38) K/mm3 Lymph # (Auto) (1.32-3.57) K/mm3 [place] # (Auto) (0.30-0.82) K/mm3 Eos # (Auto) (0.04-0.54) K/mm3 Baso # (Auto) (0.01-0.08) K/mm3 PT (9.7-12.0) SECONDS INR APTT (21.7-31.4) SECONDS Sodium (136-145) mEq/L Potassium (3.5-5.1) mEq/L Chloride (98-107) mEq/L Carbon Dioxide (21-32) mEq/L Anion Gap (5-15) BUN (7-18) mg/dL Creatinine (0.7-1.3) mg/dL Est Cr Clr Drug Dosing mL/min Estimated GFR (MDRD) (>60) mL/min BUN/Creatinine Ratio (14-18) Glucose (70-99) mg/dL Calcium (8.5-10.1) mg/dL Magnesium 1.1 L (1.8-2.4) mg/dL Total Bilirubin (0.2-1.0) mg/dL AST (15-37) U/L ALT (16-63) U/L Alkaline Phosphatase (46-116) U/L Total Protein (6.4-8.2) g/dl Albumin (3.4-5.0) g/dl Globulin gm/dL Albumin/Globulin Ratio (1-2) Urine Color Light yellow (Yellow) Urine Appearance Cloudy H (Clear) Urine pH 5.5 (5.0-8.0) Ur Specific [place] 1.025 (1.005-1.030) Urine Protein 2+ H (Negative) Urine Glucose (UA) Negative (Negative) Urine Ketones Negative (Negative) Urine Occult Blood 2+ H (Negative) Urine Nitrite Positive H (Negative) Urine Bilirubin Negative (Negative) Urine Urobilinogen 0.2 (0.2-1.0) Ur Leukocyte Esterase 3+ H (Negative) Urine RBC 0-5 (0-5) /hpf Urine WBC >100 H (0-5) /hpf Ur Epithelial Cells 0-5 (0-5) /hpf Urine Bacteria Few (FEW) /hpf Urine Mucus Few (FEW) /hpf Meds: Medications Generic Name Dose Route Start Last Admin Trade Name Freq PRN Reason Stop Dose Admin Sodium Chloride 1,000 mls @ 100 mls/hr 07/12/21 11:27 07/12/21 13:18 Normal Saline IV 07/12/21 21:26 999 mls/hr NOW STA Infusion Sodium Chloride 10 ml 07/12/21 11:27 07/12/21 11:45 Sodium Chloride 0.9% 10 Ml Syringe FLUSH 10 ml ASDIRECTED PRN Administration Keep Vein Open Discontinued Medications Generic Name Dose Route Start Last Admin Trade Name Mary PRN Reason Stop Dose Admin Bisacodyl 10 mg 07/12/21 13:18 07/12/21 13:19 Bisacodyl 10 Mg Supp RECTAL 07/12/21 13:19 10 mg ONETIME ONE Administration Ceftriaxone Sodium 2 gm/ 100 mls @ 200 mls/hr 07/12/21 13:17 07/12/21 13:22 Sodium Chloride IV 07/12/21 13:46 200 mls/hr ONETIME ONE Administration Magnesium Sulfate 4 gm/ Premix 50 mls @ 12.5 mls/hr 07/12/21 13:45 07/12/21 13:59 IV 07/12/21 17:44 12.5 mls/hr ONETIME ONE Administration - Re-Assessments/Exams Free Text/Narrative Re-Assessment/Exam: Patient is an 81-year-old male returning to the emergency department for evaluation of ongoing rectal bleeding. Report is that he had bloody bowel movements on Saturday and Saturday. He had improved yesterday, but today after having a bowel movement there was "a lot "of blood in the toilet. Patient reports that he has been constipated that he was straining to have a bowel movement today as well. Denies any dizziness or abdominal pain. I have ordered blood work and urinalysis. Patient is having no abdominal pain, therefore imaging is not indicated at this time. 07/12/21 13:45 Hematology significant for hemoglobin 8.4, chloride 114, CO2 14, anion gap 18.7, BUN 50, creatinine 2.5, magnesium 1.1. Urine is grossly positive for infec tion. Rectal exam did not show any josé manuel red blood, however stool was Hemoccult positive. There was a palpable hard stool high in the rectal vault. I have ordered a dulcolax suppository as well as Rocephin 2 g IV and magnesium sulfate 4 g IV. Case was discussed with general surgeon, Dr. Qiu. She is recommending patient follow-up in the clinic as his hemoglobin is fairly stable. We will continue to monitor the patient as he will be in this emergency department for 4 hours to receive the magnesium infusion. I have also ordered a 500 mill bolus of normal saline and then continue at 150 ml/hr as labs show that he is dry. 07/12/21 16:25 Patient had a medium, formed bowel movement after suppository. Nursing staff reports that there was no blood in the stool, however there was a small amount of blood when she wiped. Patient is resting comfortably. Vital signs are stable. 07/12/21 17:36 Patient has finished his magnesium infusion and Rocephin IV. He has had no significant rectal bleeding in the emergency department. We will discharge him back to the nursing facility with recommendation to follow-up with the general surgeon, Dr. Qiu, in the clinic at her next available visit. Return for significant bleeding. Discharge instructions as documented. Departure - Departure Time of Disposition: 17:36 Disposition: Home, Self-Care 01 Condition: Good Clinical Impression: Hypomagnesemia Constipation Qualifiers: Constipation type: unspecified constipation type Qualified Code(s): K59.00 - Constipation, unspecified Urinary tract infection Qualifiers: Urinary tract infection type: site unspecified Hematuria presence: without hematuria Qualified Code(s): N39.0 - Urinary tract infection, site not specified GI bleed Qualifiers: GI bleed type/associated pathology: unspecified gastrointestinal hemorrhage type Qualified Code(s): K92.2 - Gastrointestinal hemorrhage, unspecified - Discharge Information *PRESCRIPTION DRUG MONITORING PROGRAM REVIEWED*: No *COPY OF PRESCRIPTION DRUG MONITORING REPORT IN PATIENT ANTONIO: No Prescriptions: Cefdinir 300 mg PO BID 10 Days #20 capsule Instructions: Hypomagnesemia, Constipation, Adult Referrals: Shai Samano MD [Primary Care Provider] - Forms: ED Department Discharge Additional Instructions: Jerry was seen in the emergency department today for rectal bleeding and cloudy urine. Work-up included blood work and urinalysis. Results indicated that his magnesium was low, therefore this was replaced in the ER. He was also slightly dehydrated, therefore he received IV fluids. He does have a urinary tract infection for which he received IV antibiotics and has been started on Omnicef which should begin tomorrow. When rectal exam was completed, he was found to have hard stool. He received a suppository in the emergency department and did have a medium formed bowel movement which was not bloody. There was a small amount of blood noted when wiping. His case was discussed with the general surgeon on-call, Dr. Chandler. She recommend that he follow-up with her in the clinic as he is not having large amounts of active bleeding and his hemoglobin has been stable since Saturday. Recommend increase fluid intake and continued bowel regimen. Contact Dr. Chandler's office in the morning to set up follow-up visit. I would recommend follow-up in the clinic on Saturday to have blood work rechecked. Return to ER for recurrence of significant rectal bleeding or any other concerning symptoms. Sepsis Event Note (ED) - Focused Exam Vital Signs: Vital Signs Temp Pulse Resp BP Pulse Ox 07/12/21 11:17 97 F 92 16 129/76 99 - My Orders Last 24 Hours: My Active Orders 07/12/21 11:27 Peripheral IV Care [RC] . DIRECTED Sodium Chloride 0.9% [Normal Saline] 1,000 ml IV NOW Sodium Chloride 0.9% [Saline Flush] 10 ml FLUSH ASDIRECTED PRN Peripheral IV Insertion Adult [OM.PC] Stat - Assessment/Plan Last 24 Hours: My Active Orders 07/12/21 11:27 Peripheral IV Care [RC] . DIRECTED Sodium Chloride 0.9% [Normal Saline] 1,000 ml IV NOW Sodium Chloride 0.9% [Saline Flush] 10 ml FLUSH ASDIRECTED PRN Peripheral IV Insertion Adult [OM.PC] Stat
[2021-07-12] MEDS ORDERED: Magnesium Sulfate/Water 4 GM in Premix Bag 1 BAG IV ONE (13:45)
== END 2021-07-12 18:30 | disposition home or self-care (01) ==
LOC: JD.ED 11:12
DX: K59.00 Constipation, unspecified (principal); N39.0 Urinary tract infection, site not specified; K92.2 Gastrointestinal hemorrhage, unspecified; E83.42 Hypomagnesemia; K21.9 Gastro-esophageal reflux disease without esophagitis; I10 Essential (primary) hypertension; Z79.02 Long term (current) use of antithrombotics/antiplatelets; Z79.899 Other long term (current) drug therapy; Z72.0 Tobacco use
CPT/HCPCS: 36415; 80053; 81001; 83735; 85025; 85610; 85730; 96365; 96366; 96367; 99283-25; 99284; A9270-GY; J0696; J3475; J7030

== ENCOUNTER 2021-08-17 10:52 | Emergency (ER) | payer MEDICARE ==
[2021-08-17] MEDS ORDERED: Sodium Chloride 0.9% 10 ML Syringe FLUSH PRN (11:09)
[2021-08-17] MEDS ORDERED: Sodium Chloride 0.9% 1,000 ML IV STA (11:28)
--- NOTE | 2021-08-17 11:59 | EDM.PDOC ---
ED HPI GENERAL MEDICAL PROBLEM - General Chief Complaint: Gastrointestinal Problem Stated Complaint: FROM [facility] Time Seen by Provider: 08/17/21 10:58 Source of Information: Reports: Patient, RN Notes Reviewed History Limitations: Reports: No Limitations - History of Present Illness INITIAL COMMENTS - FREE TEXT/NARRATIVE: Patient is an 81-year-old male presenting to the emergency department from the [facility] with complaints of elevated creatinine and BUN. Patient is a resident of [facility] and is currently underg oing treatment for colon cancer. He was at the clinic to get his infusion today when blood work was checked and this was found. senior care staff report that he has been gradually declining over the course the last month. He has been increasingly weak and is currently a Liu lift for all transfers as he cannot bear weight. He has not been wanting to eat or drink anything. Patient reports that he is voiding normally. He does feel nauseous but has not had any vomiting. Patient has a history of GI bleed and recently had a partial colonoscopy time was found to have rectal ulcers. Patient denies any recent rectal bleeding. Patient is a full code. senior care staff report that there have been numerous conversations about his CODE STATUS and patient would like to continue full CODE STATUS. Patient denies any pain at this time. He has got no chest pain or shortness of breath. - Related Data Allergies Allergy/AdvReac Type Severity Reaction Status Date / Time No Known Allergies Allergy Verified 08/17/21 11:16 Home Meds: Home Meds Calcium Carbonate 1,500 mg PO DAILY 03/07/20 [History] Clopidogrel [Plavix] 75 mg PO DAILY 03/07/20 [History] FLUoxetine [PROzac] 40 mg PO DAILY 03/07/20 [History] Multivitamin [Multivitamins] 1 tab PO DAILY 03/07/20 [History] Vitamin E 400 units PO DAILY 03/07/20 [History] atorvaSTATin Calcium [Lipitor] 40 mg PO BEDTIME 03/07/20 [History] Cholecalciferol (Vitamin D3) [Vitamin D3] 1,000 unit PO DAILY 08/16/20 [History] Levothyroxine [Synthroid] 50 mcg PO ACBREAKFAST 08/16/20 [History] Loperamide HCl [Imodium A-D] 2 mg PO ASDIRECTED PRN 08/16/20 [History] Simethicone 80 mg PO QID 08/16/20 [History] Tamsulosin HCl [Flomax] 0.8 mg PO BEDTIME 08/16/20 [History] hydroCHLOROthiazide [Hydrochlorothiazide] 12.5 mg PO DAILY 08/16/20 [History] polyethylene glycoL 3350 [MiraLAX] 17 gm PO DAILY PRN 08/16/20 [History] Acetaminophen [Aphen] 2 tab PO Q4H PRN 07/07/21 [History] Alum Hydrox/Mag Hydrox/Simeth [Mag-Al Plus] 20 ml PO ASDIRECTED PRN 07/07/21 [History] Ascorbic Acid [C-500] 500 mg PO DAILY 07/07/21 [History] Cholestyramine/Sucrose [Cholestyramine] 4 gm PO DAILY 07/07/21 [History] Ferrous Sulfate [Slow Fe] 142 mg PO DAILY 07/07/21 [History] Hydrocortisone [Hydrocortisone 1% Oint] 1 applic TOP BID PRN 07/07/21 [History] Losartan [Cozaar] 50 mg PO DAILY 07/07/21 [History] Megestrol [Megace 40 MG/ML Susp] 400 mg PO DAILY 07/07/21 [History] Mirtazapine 15 mg PO BEDTIME 07/07/21 [History] Ondansetron [Zofran ODT] 1 tab PO QID PRN 07/07/21 [History] Pramoxine HCl [Cerave Itch Relief] 1 applic TOP BID PRN 07/07/21 [History] Triamcinolone Acetonide [Triamcinolone Acetonide 0.1% Crm] 1 applic TOP BID PRN 07/07/21 [History] Acetaminophen [Acetaminophen Extra Strength] 500 mg PO Q4H PRN 07/12/21 [History] Magnesium Oxide 400 mg PO QAM 07/12/21 [History] Abiraterone Acetate [Zytiga] 500 mg PO DAILY 08/17/21 [History] Calcium Carbonate [Tums] 500 mg PO DAILY PRN 08/17/21 [History] Sennosides [Senna] 8.6 mg PO DAILY PRN 08/17/21 [History] cephALEXin [Keflex] 500 mg PO BID 08/17/21 [History] Past Medical History HEENT History: Reports: Cataract, Impaired Vision Cardiovascular History: Reports: Hypertension Respiratory History: Reports: None Gastrointestinal History: Reports: GERD Other Gastrointestinal History: ulcer Other Genitourinary History: Prostate Cancer Musculoskeletal History: Reports: Arthritis Neurological History: Reports: Other (See Below) Other Neuro History: stroke 7 months ago Psychiatric History: Reports: Addiction, Suicide Attempt Other Psychiatric History: Suicide attempt 12/26/18-12/27/18 Endocrine/Metabolic History: Reports: Osteopenia Hematologic History: Reports: None Immunologic History: Reports: None Oncologic (Cancer) History: Reports: Prostate Dermatologic History: Reports: None - Infectious Disease History Infectious Disease History: Reports: Chicken Pox - Past Surgical History HEENT Surgical History: Reports: Eye Surgery, Oral Surgery, Tonsillectomy Cardiovascular Surgical History: Reports: None Male Surgical History: Reports: Other (See Below) Other Male Surgeries/Procedures: patient has seeds placed for prostrate cancer. Musculoskeletal Surgical History: Reports: None Oncologic Surgical History: Reports: Other (See Below) Other Oncologic Surgeries/Procedures: Prostate biopsy x2 Social & Family History - Family History HEENT: Reports: Impaired Vision Cardiac: Reports: None Respiratory: Reports: None Musculoskeletal: Reports: Arthritis Neurological: Reports: Alzheimers Disease, Cerebral Aneurysms Endocrine/Metabolic: Reports: None Oncologic: Reports: Breast, Prostate - Tobacco Use Tobacco Use Status *Q: Never Tobacco User Second Hand Smoke Exposure: No - Caffeine Use Caffeine Use: Reports: Coffee Other Caffeine Use: Daily - Recreational Drug Use Recreational Drug Use: No - Living Situation & Occupation Living situation: Reports: Single Occupation: Retired ED ROS GENERAL - Review of Systems Review Of Systems: See Below Constitutional: Reports: Weakness, Fatigue, Decreased Appetite HEENT: Reports: No Symptoms Respiratory: Reports: No Symptoms. Denies: Shortness of Breath, Cough Cardiovascular: Reports: No Symptoms. Denies: Chest Pain Endocrine: Reports: No Symptoms GI/Abdominal: Reports: Bloody Stool. Denies: Difficulty Swallowing : Denies: Dysuria, Flank Pain, Hematuria Musculoskeletal: Reports: No Symptoms Skin: Reports: No Symptoms Neurological: Reports: No Symptoms Psychiatric: Reports: No Symptoms Hematologic/Lymphatic: Reports: No Symptoms Immunologic: Reports: No Symptoms ED EXAM, RENAL/ - Physical Exam Exam: See Below Exam Limited By: No Limitations General Appearance: Alert, WD/WN, No Apparent Distress, Cachetic Respiratory/Chest: No Respiratory Distress, Lungs Clear, Normal Breath Sounds, No Accessory Muscle Use, Chest Non-Tender Cardiovascular: Normal Peripheral Pulses, Regular Rate, Rhythm, No Edema, No Gallop, No JVD, No Murmur, No Rub GI/Abdominal: Normal Bowel Sounds, Soft, Non-Tender, No Organomegaly, No Distention, No Abnormal Bruit, No Mass Neurological: Alert, Oriented, CN II-XII Intact, Normal Cognition, Normal Reflexes, No Motor/Sensory Deficits Psychiatric: Normal Affect, Normal Mood Skin Exam: Warm, Dry, Intact, No Rash, Pallor #1 Interpretation EKG Date: 08/17/21 Time: 11:43 Rhythm: NSR Rate (Beats/Min): 97 Grant: LAD-Left Grant Deviation P-Wave: Present QRS: Normal ST-T: Normal QT: Prolonged (mildly) Course - Vital Signs Last Recorded V/S: Last Vital Signs Temp 97.3 F 08/17/21 11:11 Pulse 80 08/17/21 16:15 Resp 16 08/17/21 16:15 BP 102/68 08/17/21 16:15 Pulse Ox 98 08/17/21 16:15 - Orders/Labs/Meds Orders: Active Orders 24 hr Category Date Time Status Peripheral IV Insertion Adult [OM.PC] Stat Oth 08/17/21 11:09 Ordered Labs: Laboratory Tests 08/17/21 08/17/21 08/17/21 Range/Units 11:25 11:25 11:25 WBC 9.46 H (4.23-9.07) K/mm3 RBC 3.06 L (4.63-6.08) M/mm3 Hgb 8.4 L (13.7-17.5) gm/dl Hct 27.1 L (40.1-51.0) % MCV 88.6 D (79.0-92.2) fl MCH 27.5 (25.7-32.2) pg MCHC 31.0 L (32.2-35.5) g/dl RDW Std Deviation 57.2 H (35.1-43.9) fL Plt Count 400 H D (163-337) K/mm3 MPV 10.9 (9.4-12.3) fl Neut % (Auto) 69.7 H (34.0-67.9) % Lymph % (Auto) 22.3 (21.8-53.1) % [place] % (Auto) 5.7 (5.3-12.2) % Eos % (Auto) 1.7 (0.8-7.0) Baso % (Auto) 0.2 (0.1-1.2) % Neut # (Auto) 6.59 H (1.78-5.38) K/mm3 Lymph # (Auto) 2.11 (1.32-3.57) K/mm3 [place] # (Auto) 0.54 (0.30-0.82) K/mm3 Eos # (Auto) 0.16 (0.04-0.54) K/mm3 Baso # (Auto) 0.02 (0.01-0.08) K/mm3 Sodium 142 (136-145) mEq/L Potassium 4.5 (3.5-5.1) mEq/L Chloride 108 H (98-107) mEq/L Carbon Dioxide 15 L (21-32) mEq/L Anion Gap 23.5 H (5-15) BUN 108 H D (7-18) mg/dL Creatinine 6.4 H D (0.7-1.3) mg/dL Est Cr Clr Drug Dosing TNP Estimated GFR (MDRD) 8 (>60) mL/min BUN/Creatinine Ratio 16.9 (14-18) Glucose 165 H (70-99) mg/dL Calcium 8.3 L (8.5-10.1) mg/dL Magnesium (1.8-2.4) mg/dL Total Bilirubin 0.3 (0.2-1.0) mg/dL AST 15 (15-37) U/L ALT 10 L (16-63) U/L Alkaline Phosphatase 78 (46-116) U/L C-Reactive Protein 4.2 H* (<1.0) mg/dL NT-Pro-B Natriuret Pep 1470 H (0-450) pg/mL Total Protein 6.9 (6.4-8.2) g/dl Albumin 2.8 L (3.4-5.0) g/dl Globulin 4.1 gm/dL Albumin/Globulin Ratio 0.7 L (1-2) SARS-CoV-2 RNA (RAYSHAWN) (NEGATIVE) 08/17/21 08/17/21 Range/Units 11:25 11:30 WBC (4.23-9.07) K/mm3 RBC (4.63-6.08) M/mm3 Hgb (13.7-17.5) gm/dl Hct (40.1-51.0) % MCV (79.0-92.2) fl MCH (25.7-32.2) pg MCHC (32.2-35.5) g/dl RDW Std Deviation (35.1-43.9) fL Plt Count (163-337) K/mm3 MPV (9.4-12.3) fl Neut % (Auto) (34.0-67.9) % Lymph % (Auto) (21.8-53.1) % [place] % (Auto) (5.3-12.2) % Eos % (Auto) (0.8-7.0) Baso % (Auto) (0.1-1.2) % Neut # (Auto) (1.78-5.38) K/mm3 Lymph # (Auto) (1.32-3.57) K/mm3 [place] # (Auto) (0.30-0.82) K/mm3 Eos # (Auto) (0.04-0.54) K/mm3 Baso # (Auto) (0.01-0.08) K/mm3 Sodium (136-145) mEq/L Potassium (3.5-5.1) mEq/L Chloride (98-107) mEq/L Carbon Dioxide (21-32) mEq/L Anion Gap (5-15) BUN (7-18) mg/dL Creatinine (0.7-1.3) mg/dL Est Cr Clr Drug Dosing Estimated GFR (MDRD) (>60) mL/min BUN/Creatinine Ratio (14-18) Glucose (70-99) mg/dL Calcium (8.5-10.1) mg/dL Magnesium 3.1 H (1.8-2.4) mg/dL Total Bilirubin (0.2-1.0) mg/dL AST (15-37) U/L ALT (16-63) U/L Alkaline Phosphatase (46-116) U/L C-Reactive Protein (<1.0) mg/dL NT-Pro-B Natriuret Pep (0-450) pg/mL Total Protein (6.4-8.2) g/dl Albumin (3.4-5.0) g/dl Globulin gm/dL Albumin/Globulin Ratio (1-2) SARS-CoV-2 RNA (RAYSHAWN) Negative (NEGATIVE) Meds: Medications Discontinued Medications Generic Name Dose Route Start Last Admin Trade Name Mary PRN Reason Stop Dose Admin Sodium Chloride 1,000 mls @ 150 mls/hr 08/17/21 11:28 08/17/21 11:48 Normal Saline IV 08/17/21 18:07 150 mls/hr NOW STA Administration Sodium Chloride 10 ml 08/17/21 11:09 08/17/21 11:48 Sodium Chloride 0.9% 10 Ml Syringe FLUSH 10 ml ASDIRECTED PRN Administration Keep Vein Open - Re-Assessments/Exams Free Text/Narrative Re-Assessment/Exam: Patient is an 81-year-old male presenting to the emergency department from the [facility] for evaluation of elevated BUN and creatinine. He is currently undergoing chemo treatment for prostate cancer with Zytiga. He has had reduced renal function in the past, however not to this extent. He is denying any pain. Reports he has been voiding. I have ordered blood work, EKG, chest x-ray, Covid test. We will start IV fluids of NS at 150 mill per hour 08/17/21 1345 Hematology significant for WBC 9.46, hemoglobin 8.4, chloride 108, CO2 15, anion gap 23.5, BUN 108, creatinine 6.4, magnesium 3.1, CRP 4.2, proBNP 1470. Patient is Covid negative. EKG shows no acute abnormalities. Chest x-ray reveals slight atelectasis of the lateral left costophrenic angle. Heart is slightly enlarged. Other acute findings. Case was discussed with hospitalist at [facility], Dr. Dunn. He has accepted the patient for transfer. Departure - Departure Time of Disposition: 13:45 Disposition: DC/Tfer to [facility] 02 Condition: Fair Clinical Impression: Anemia Qualifiers: Anemia type: unspecified type Qualified Code(s): D64.9 - Anemia, unspecified Acute on chronic renal failure Qualifiers: Acute renal failure type: unspecified Chronic kidney disease stage: unspecified stage Qualified Code(s): N17.9 - Acute kidney failure, unspecified; N18.9 - Chronic kidney disease, unspecified - Discharge Information Referrals: Shai Samano MD [Primary Care Provider] - Forms: ED Department Discharge Sepsis Event Note (ED) - Evaluation Sepsis Screening Result: No Definite Risk - Focused Exam Vital Signs: Vital Signs Temp Pulse Resp BP Pulse Ox 08/17/21 16:15 80 16 102/68 98 08/17/21 11:11 97.3 F 104 H 16 91/47 L 93 L - My Orders Last 24 Hours: My Active Orders 08/17/21 11:09 Peripheral IV Insertion Adult [OM.PC] Stat - Assessment/Plan Last 24 Hours: My Active Orders 08/17/21 11:09 Peripheral IV Insertion Adult [OM.PC] Stat
--- NOTE | 2021-08-17 12:09 | CR ---
Chest: Frontal view of the chest was obtained. Comparison: Prior chest x-ray of 03/07/20. Heart size is slightly enlarged. Tortuous thoracic aorta is seen. Minimal atelectasis is seen within the lateral left costophrenic angle. Lungs otherwise are clear. Bony structures are diffusely osteopenic. Impression: 1. Slight atelectasis within the lateral left costophrenic angle. 2. Heart is slightly enlarged. 3. Other findings as noted above. Nothing acute is appreciated. Diagnostic code #2
== END 2021-08-17 16:26 ==
LOC: JD.ED 10:52
DX: N17.9 Acute kidney failure, unspecified (principal); I12.9 Hypertensive chronic kidney disease with stage 1 through stage 4 chronic kidney disease, or unspecified chronic kidney disease; N18.9 Chronic kidney disease, unspecified; D63.1 Anemia in chronic kidney disease; K21.9 Gastro-esophageal reflux disease without esophagitis; Z79.02 Long term (current) use of antithrombotics/antiplatelets; Z79.899 Other long term (current) drug therapy; Z20.822 Contact with and (suspected) exposure to COVID-19
CPT/HCPCS: 36415; 71045; 80053; 83735; 83880; 85025; 86140; 93005; 99285; J7030; U0002

== ENCOUNTER 2021-09-13 11:44 | Observation (INO) | payer MEDICARE ==
[2021-09-13] MEDS ORDERED: Iopamidol 612 MG/ML 100 ML Bottle IVPUSH ONE (13:33)
[2021-09-13] MEDS ORDERED: Diatrizoate Meglumine/Diatrizoate Sodium 37% 120 ML Bottle PO ONE (13:33)
[2021-09-13] MEDS ORDERED: Sodium Chloride 0.9% 10 ML Syringe FLUSH PRN (13:33)
--- NOTE | 2021-09-13 14:16 | EDM.PDOC ---
ED HPI GENERAL MEDICAL PROBLEM - General Chief Complaint: General Stated Complaint: KILLDEER AMB Time Seen by Provider: 09/13/21 11:45 Source of Information: Reports: Patient History Limitations: Reports: No Limitations - History of Present Illness INITIAL COMMENTS - FREE TEXT/NARRATIVE: 81-year-old male presents the emergency department today with complaints of a lump noted in his right lower abdomen. Patient states he had a colonoscopy yesterday at [facility] in [place] by , due to questionable GI bleed. Patient states that immediately after the procedure he noted a lump in his right lower abdomen and surgeon was made aware however did not see him concerned regarding the issue. Patient had complaints of the lump still being prescient this morning, so a call was made to his primary care provider, recommended he be evaluated in the emergency department. Patient states he has not had a bowel movement since prior to the procedure however he has not eaten until breakfast this morning. He denies any abdominal pain, denies fever, chills, nausea, vomiting or diarrhea. States he otherwise feels normal. Of note, patient does have a history of prostate cancer and is currently receiving "infusions". is his oncologist. - Related Data Allergies Allergy/AdvReac Type Severity Reaction Status Date / Time No Known Allergies Allergy Verified 09/13/21 12:27 Home Meds: Home Meds Calcium Carbonate 1,500 mg PO DAILY 03/07/20 [History] Clopidogrel [Plavix] 75 mg PO DAILY 03/07/20 [History] FLUoxetine [PROzac] 40 mg PO DAILY 03/07/20 [History] Multivitamin [Multivitamins] 1 tab PO DAILY 03/07/20 [History] Vitamin E 400 units PO DAILY 03/07/20 [History] atorvaSTATin Calcium [Lipitor] 40 mg PO BEDTIME 03/07/20 [History] Cholecalciferol (Vitamin D3) [Vitamin D3] 1,000 unit PO DAILY 08/16/20 [History] Levothyroxine [Synthroid] 50 mcg PO ACBREAKFAST 08/16/20 [History] Loperamide HCl [Imodium A-D] 2 mg PO ASDIRECTED PRN 08/16/20 [History] Simethicone 80 mg PO QID 08/16/20 [History] Tamsulosin HCl [Flomax] 0.8 mg PO BEDTIME 08/16/20 [History] polyethylene glycoL 3350 [MiraLAX] 17 gm PO DAILY PRN 08/16/20 [History] Acetaminophen [Aphen] 2 tab PO Q4H PRN 07/07/21 [History] Alum Hydrox/Mag Hydrox/Simeth [Mag-Al Plus] 20 ml PO ASDIRECTED PRN 07/07/21 [Hi story] Ascorbic Acid [C-500] 500 mg PO DAILY 07/07/21 [History] Cholestyramine/Sucrose [Cholestyramine] 4 gm PO DAILY 07/07/21 [History] Ferrous Sulfate [Slow Fe] 142 mg PO DAILY 07/07/21 [History] Hydrocortisone [Hydrocortisone 1% Oint] 1 applic TOP BID PRN 07/07/21 [History] Losartan [Cozaar] 50 mg PO DAILY 07/07/21 [History] Megestrol [Megace 40 MG/ML Susp] 400 mg PO DAILY 07/07/21 [History] Mirtazapine 15 mg PO BEDTIME 07/07/21 [History] Ondansetron [Zofran ODT] 1 tab PO QID PRN 07/07/21 [History] Pramoxine HCl [Cerave Itch Relief] 1 applic TOP BID PRN 07/07/21 [History] Triamcinolone Acetonide [Triamcinolone Acetonide 0.1% Crm] 1 applic TOP BID PRN 07/07/21 [History] Magnesium Oxide 400 mg PO QAM 07/12/21 [History] Calcium Carbonate [Tums] 500 mg PO DAILY PRN 08/17/21 [History] Sennosides [Senna] 8.6 mg PO DAILY PRN 08/17/21 [History] Albuterol/Ipratropium [Combivent Respimat] 1 puff INH Q6HR PRN 09/13/21 [History] Budesonide/Formoterol [Symbicort 160-4.5 MCG] 2 puff INH BID 09/13/21 [History] Pantoprazole [ProTONIX] 40 mg PO DAILY 09/13/21 [History] Abiraterone Acetate [Zytiga] 500 mg PO DAILY 09/14/21 [Rx] Past Medical History HEENT History: Reports: Cataract, Impaired Vision Cardiovascular History: Reports: Hypertension Respiratory History: Reports: None Gastrointestinal History: Reports: GERD Other Gastrointestinal History: ulcer Other Genitourinary History: Prostate Cancer Musculoskeletal History: Reports: Arthritis Neurological History: Reports: Other (See Below) Other Neuro History: stroke 7 months ago Psychiatric History: Reports: Addiction, Suicide Attempt Other Psychiatric History: Suicide attempt 12/26/18-12/27/18 Endocrine/Metabolic History: Reports: Osteopenia Hematologic History: Reports: None Immunologic History: Reports: None Oncologic (Cancer) History: Reports: Prostate Dermatologic History: Reports: None - Infectious Disease History Infectious Disease History: Reports: Chicken Pox - Past Surgical History HEENT Surgical History: Reports: Eye Surgery, Oral Surgery, Tonsillectomy Cardiovascular Surgical History: Reports: None GI Surgical History: Reports: Colonoscopy Male Surgical History: Reports: Other (See Below) Other Male Surgeries/Procedures: patient has seeds placed for prostrate cancer. Musculoskeletal Surgical History: Reports: None Oncologic Surgical History: Reports: Other (See Below) Other Oncologic Surgeries/Procedures: Prostate biopsy x2 Social & Family History - Family History HEENT: Reports: Impaired Vision Cardiac: Reports: None Respiratory: Reports: None Musculoskeletal: Reports: Arthritis Neurological: Reports: Alzheimers Disease, Cerebral Aneurysms Endocrine/Metabolic: Reports: None Oncologic: Reports: Breast, Prostate - Tobacco Use Tobacco Use Status *Q: Former Tobacco User Years of Tobacco use: 60 Packs/Tins Daily: 1 Used Tobacco, but Quit: Yes Month/Year Tobacco Last Used: 10/2018 Second Hand Smoke Exposure: No - Caffeine Use Caffeine Use: Reports: None Other Caffeine Use: Daily - Recreational Drug Use Recreational Drug Use: No - Living Situation & Occupation Living situation: Reports: Single Occupation: Retired ED ROS GENERAL - Review of Systems Review Of Systems: Comprehensive ROS is negative, except as noted in HPI. ED EXAM, GENERAL - Physical Exam Exam: See Below Exam Limited By: No Limitations General Appearance: Alert, WD/WN, No Apparent Distress Ears: Normal External Exam, Hearing Grossly Normal Nose: Normal Inspection Throat/Mouth: Normal Inspection, Normal Lips, Normal Voice, No Airway Compromise Head: Atraumatic, Normocephalic Neck: Normal Inspection, Supple Respiratory/Chest: No Respiratory Distress, Lungs Clear, Normal Breath Sounds, No Accessory Muscle Use, Chest Non-Tender Cardiovascular: Normal Peripheral Pulses, Regular Rate, Rhythm, No Edema, No Murmur Peripheral Pulses: 2+: Radial (L), Radial (R) GI/Abdominal: Normal Bowel Sounds, Soft, Non-Tender, No Distention, Other (Small palpable mass appreciated with palpation to right lower abdomen just adjacent to the umbilicus approximately 4 cm x 2 cm) (Male) Exam: Deferred Rectal (Males) Exam: Deferred Back Exam: Normal Inspection Extremities: Normal Inspection Neurological: Alert, Oriented, Normal Cognition Psychiatric: Normal Affect, Normal Mood Skin Exam: Warm, Dry, Intact, Normal Color, No Rash Lymphatic: No Adenopathy Course - Vital Signs Text/Narrative:: As stated above, patient presents with a "mass" in his right lower abdomen status post colonoscopy yesterday. Physical exam is essentially unremarkable ho wever patient does have a palpable mass approximately 4 cm x 2 cm to his right lower quadrant. He denies any tenderness with palpation. Denies any abdominal tenderness at all. Bowel sounds are positive x4 quadrants. He is hemodynamically stable. He does have a low-grade temp of 99.1 at the time of triage. Will obtain lab studies to include a CBC, CMP, C-reactive protein, magnesium. Also obtain a CT of the abdomen and pelvis. Last Recorded V/S: Last Vital Signs Temp 97.3 F 09/14/21 07:33 Pulse 98 09/14/21 07:33 Resp 18 09/14/21 07:33 BP 159/95 H 09/14/21 07:33 Pulse Ox 97 09/14/21 07:33 - Orders/Labs/Meds Orders: Active Orders 24 hr Category Date Time Status Admission Status [Patient Status] [ADT] Routine ADT 09/13/21 16:30 Active Oxygen Therapy [RC] PRN Care 09/13/21 16:42 Active RT Aerosol Therapy [RC] ASDIRECTED Care 09/13/21 16:48 Active Up With Assistance [RC] BID Care 09/13/21 16:41 Active VTE/DVT Education [RC] DAILY Care 09/13/21 16:42 Active Vital Signs [RC] Q4HR Care 09/13/21 16:47 Active OT Evaluation and Treatment [CONS] Routine Cons 09/13/21 16:47 Active PT Evaluation and Treatment [CONS] Routine Cons 09/13/21 16:47 Active Regular Diet [DIET] Diet 09/13/21 Dinner Active CBC WITH AUTO DIFF [HEME] DAILY Lab 09/15/21 05:00 Ordered COMPREHENSIVE METABOLIC PN,CMP [CHEM] DAILY Lab 09/15/21 05:00 Ordered Acetaminophen [TylenoL] Med 09/13/21 16:47 Active 650 mg PO Q6H PRN Albuterol/Ipratropium [DuoNeb 3.0-0.5 MG/3 ML] Med 09/13/21 16:47 Active 3 ml NEB Q4H PRN Calcium Carbonate [Tums] Med 09/13/21 17:00 Active 1,500 mg PO DAILY Cholestyramine/Sucrose [Cholestyramine Packet] Med 09/14/21 09:00 Pending 4 gm PO DAILY Clopidogrel [Plavix] Med 09/13/21 17:00 Pending 75 mg PO DAILY Enoxaparin [Lovenox] Med 09/13/21 16:45 Active 40 mg SUBCUT DAILY FLUoxetine [PROzac] Med 09/14/21 09:00 Pending 40 mg PO DAILY Ferrous Sulfate [Slow Fe] Med 09/14/21 09:00 Pending 142 mg PO DAILY Lactated Ringers [Ringers, Lactated] 1,000 ml Med 09/13/21 16:45 Active IV ASDIRECTED Levothyroxine [Synthroid] Med 09/14/21 06:00 Pending 50 mcg PO ACBREAKFAST Mirtazapine [Remeron] Med 09/13/21 21:00 Pending 15 mg PO BEDTIME Morphine Med 09/13/21 16:47 Active 2 mg IVPUSH Q4H PRN Multivitamins [Tab-A-Reza] Med 09/14/21 09:00 Active 1 tab PO DAILY Promethazine [Phenergan] 6.25 mg Med 09/13/21 16:47 Active Sodium Chloride 0.9% [Normal Saline] 50 ml IV Q6H Sennosides [Senna] Med 09/13/21 16:52 Active 8.6 mg PO DAILY PRN Simethicone Med 09/13/21 17:00 Active 80 mg PO QID Sodium Chloride 0.9% [Saline Flush] Med 09/13/21 13:33 Active 10 ml FLUSH ONETIME PRN Tamsulosin [Flomax] Med 09/13/21 21:00 Pending 0.8 mg PO BEDTIME Triamcinolone Acetonide [Triamcinolone Acetonide 0.1% Med 09/13/21 16:52 Pending Crm] DOSE gm TOP BID PRN atorvaSTATin [Lipitor] Med 09/13/21 21:00 Pending 40 mg PO BEDTIME hydrALAZINE [Apresoline] Med 09/13/21 17:32 Active 10 mg IVPUSH Q4H PRN oxyCODONE Med 09/13/21 16:47 Active 5 mg PO Q6H PRN polyethylene glycoL 3350 [MiraLAX] Med 09/13/21 16:52 Active 17 gm PO DAILY PRN Resuscitation Status Routine Resus Stat 09/13/21 16:41 Ordered Medication Orders Acetaminophen (Acetaminophen 325 Mg Tab) 650 mg PO Q6H PRN PRN Reason: Pain (Mild 1-3)/fever Albuterol/Ipratropium (Albuterol/Ipratropium 3.0-0.5 Mg/3 Ml Neb Soln) 3 ml NEB Q4H PRN PRN Reason: Shortness Of Breath/wheezing Atorvastatin Calcium (Atorvastatin 40 Mg Tab) 40 mg PO BEDTIME [facility] Calcium Carbonate/Glycine (Calcium Carbonate 500 Mg Tab.Chew) 1,500 mg PO DAILY [facility] Last Admin: 09/14/21 08:45 Dose: 1,500 mg Documented by: Admin: 09/13/21 18:29 Dose: Not Given Documented by: MAISHA Cholestyramine Resin (Cholestyramine/Sucrose Powder 4 Gm Packet) 4 gm PO DAILY [facility] Clopidogrel Bisulfate (Clopidogrel 75 Mg Tab) 75 mg PO DAILY [facility] Enoxaparin Sodium (Enoxaparin 40 Mg/0.4 Ml Syringe) 40 mg SUBCUT DAILY [facility] Last Admin: 09/14/21 08:42 Dose: 40 mg Documented by: Admin: 09/13/21 18:29 Dose: Not Given Documented by: MAISHA Hydralazine HCl (Hydralazine 20 Mg/Ml Sdv) 10 mg IVPUSH Q4H PRN PRN Reason: Hypertension Last Admin: 09/13/21 21:56 Dose: 10 mg Documented by: MAISHA Lactated Ringer's (Ringers, Lactated) 1,000 mls @ 65 mls/hr IV ASDIRECTED [facility] Last Admin: 09/13/21 21:55 Dose: 65 mls/hr Documented by: MAISHA Promethazine HCl 6.25 mg/ (Sodium Chloride) 50.25 mls @ 100 mls/hr IV Q6H PRN PRN Reason: Nausea/Vomiting Levothyroxine Sodium (Levothyroxine 50 Mcg Tab) 50 mcg PO ACBREAKFAST [facility] Magnesium Oxide (Magnesium Oxide 400 Mg Tab) 400 mg PO BID [facility] Last Admin: 09/14/21 08:46 Dose: 400 mg Documented by: MAXIMILIANO Mirtazapine (Mirtazapine 15 Mg Tab) 15 mg PO BEDTIME [facility] Morphine Sulfate (Morphine 2 Mg/Ml Syringe) 2 mg IVPUSH Q4H PRN PRN Reason: Pain (severe 7-10) Stop: 09/14/21 16:48 Multivitamins/Minerals/Vitamin C (Multivitamin Tab) 1 tab PO DAILY [facility] Last Admin: 09/14/21 08:46 Dose: 1 tab Documented by: MAXIMILIANO Non-Formulary Medication (Ferrous Sulfate [Slow Fe]) 142 mg PO DAILY [facility] Non-Formulary Medication (Fluoxetine [Prozac]) 40 mg PO DAILY [facility] Non-Formulary Medication (Budesonide/Formoterol) 2 puff INH BID [facility] Non-Formulary Medication (Albuterol/Ipratropium) 1 puff INH Q6HR PRN PRN Reason: Wheezing Oxycodone HCl (Oxycodone 5 Mg Tab) 5 mg PO Q6H PRN PRN Reason: Pain (moderate 4-6) Pantoprazole Sodium (Pantoprazole 40 Mg Tab.Cr) 40 mg PO DAILY [facility] Last Admin: 09/14/21 10:55 Dose: 40 mg Documented by: MAXIMILIANO Polyethylene Glycol (Polyethylene Glycol 3350 Powder 17 Gm Packet) 17 gm PO DAILY PRN PRN Reason: Constipation Senna (Sennosides 8.6 Mg Tab) 8.6 mg PO DAILY PRN PRN Reason: Constipation Simethicone (Simethicone 80 Mg Tab.Chew) 80 mg PO QID [facility] Last Admin: 09/14/21 08:45 Dose: 80 mg Documented by: Admin: 09/13/21 21:42 Dose: 80 mg Documented by: Admin: 09/13/21 18:29 Dose: Not Given Documented by: MAISHA Sodium Chloride (Sodium Chloride 0.9% 10 Ml Syringe) 10 ml FLUSH ONETIME PRN PRN Reason: IV FLUSH Last Admin: 09/13/21 14:35 Dose: 10 ml Documented by: SHARLENE Tamsulosin HCl (Tamsulosin 0.4 Mg Cap.Er) 0.8 mg PO BEDTIME ADELINA Triamcinolone Acetonide (Triamcinolone Acetonide 0.1% Crm 15 Gm Tube) gm TOP BID PRN PRN Reason: Itching Labs: Laboratory Tests 09/13/21 09/13/21 09/13/21 Range/Units 13:07 13:07 13:07 WBC 11.83 H (4.23-9.07) K/mm3 RBC 3.61 L (4.63-6.08) M/mm3 Hgb 10.4 L D (13.7-17.5) gm/dl Hct 32.3 L (40.1-51.0) % MCV 89.5 (79.0-92.2) fl MCH 28.8 (25.7-32.2) pg MCHC 32.2 (32.2-35.5) g/dl RDW Std Deviation 54.5 H (35.1-43.9) fL Plt Count 247 D (163-337) K/mm3 MPV 10.5 (9.4-12.3) fl Neut % (Auto) 75.3 H (34.0-67.9) % Lymph % (Auto) 16.9 L (21.8-53.1) % Chase % (Auto) 5.3 (5.3-12.2) % Eos % (Auto) 1.6 (0.8-7.0) Baso % (Auto) 0.3 (0.1-1.2) % Neut # (Auto) 8.91 H (1.78-5.38) K/mm3 Lymph # (Auto) 2.00 (1.32-3.57) K/mm3 Chase # (Auto) 0.63 (0.30-0.82) K/mm3 Eos # (Auto) 0.19 (0.04-0.54) K/mm3 Baso # (Auto) 0.03 (0.01-0.08) K/mm3 Sodium 142 (136-145) mEq/L Potassium 3.6 (3.5-5.1) mEq/L Chloride 113 H (98-107) mEq/L Carbon Dioxide 13 L (21-32) mEq/L Anion Gap 19.6 H (5-15) BUN 30 H D (7-18) mg/dL Creatinine 1.5 H D (0.7-1.3) mg/dL Est Cr Clr Drug Dosing 36.72 mL/min Estimated GFR (MDRD) 45 (>60) mL/min BUN/Creatinine Ratio 20.0 H (14-18) Glucose 127 H (70-99) mg/dL Calcium 8.0 L (8.5-10.1) mg/dL Magnesium 1.2 L (1.8-2.4) mg/dL Total Bilirubin 0.3 (0.2-1.0) mg/dL AST 16 (15-37) U/L ALT 23 (16-63) U/L Alkaline Phosphatase 88 (46-116) U/L Troponin I < 0.017 (0.00-0.056) ng/mL Total Protein 6.0 L (6.4-8.2) g/dl Albumin 2.2 L (3.4-5.0) g/dl Globulin 3.8 gm/dL Albumin/Globulin Ratio 0.6 L (1-2) Meds: Medications Generic Name Dose Route Start Last Admin Trade Name Freq PRN Reason Stop Dose Admin Acetaminophen 650 mg 09/13/21 16:47 Acetaminophen 325 Mg Tab PO Q6H PRN Pain (Mild 1-3)/fever Albuterol/Ipratropium 3 ml 09/13/21 16:47 Albuterol/Ipratropium 3.0-0.5 Mg/3 Ml Neb Soln NEB Q4H PRN Shortness Of Breath/wheezing Atorvastatin Calcium 40 mg 09/13/21 21:00 Atorvastatin 40 Mg Tab PO BEDTIME ADELINA Calcium Carbonate/Glycine 1,500 mg 09/13/21 17:00 09/14/21 08:45 Calcium Carbonate 500 Mg Tab.Chew PO 1,500 mg DAILY ADELINA Administration Cholestyramine Resin 4 gm 09/14/21 09:00 Cholestyramine/Sucrose Powder 4 Gm Packet PO DAILY ADELINA Clopidogrel Bisulfate 75 mg 09/13/21 17:00 Clopidogrel 75 Mg Tab PO DAILY [facility] Enoxaparin Sodium 40 mg 09/13/21 16:45 09/14/21 08:42 Enoxaparin 40 Mg/0.4 Ml Syringe SUBCUT 40 mg DAILY ADELNIA Administration Hydralazine HCl 10 mg 09/13/21 17:32 09/13/21 21:56 Hydralazine 20 Mg/Ml Sdv IVPUSH 10 mg Q4H PRN Administration Hypertension Lactated Ringer's 1,000 mls @ 65 mls/hr 09/13/21 16:45 09/13/21 21:55 Ringers, Lactated IV 65 mls/hr ASDIRECTED ADELINA Administration Promethazine HCl 6.25 mg/ 50.25 mls @ 100 mls/hr 09/13/21 16:47 Sodium Chloride IV Q6H PRN Nausea/Vomiting Levothyroxine Sodium 50 mcg 09/14/21 06:00 Levothyroxine 50 Mcg Tab PO ACBREAKFAST ADELINA Magnesium Oxide 400 mg 09/14/21 09:00 09/14/21 08:46 Magnesium Oxide 400 Mg Tab PO 400 mg BID ADELINA Administration Mirtazapine 15 mg 09/13/21 21:00 Mirtazapine 15 Mg Tab PO BEDTIME ADELINA Morphine Sulfate 2 mg 09/13/21 16:47 Morphine 2 Mg/Ml Syringe IVPUSH 09/14/21 16:48 Q4H PRN Pain (severe 7-10) Multivitamins/Minerals/Vitamin C 1 tab 09/14/21 09:00 09/14/21 08:46 Multivitamin Tab PO 1 tab DAILY ADELINA Administration Non-Formulary Medication 142 mg 09/14/21 09:00 Ferrous Sulfate [Slow Fe] PO DAILY ADELINA Non-Formulary Medication 40 mg 09/14/21 09:00 Fluoxetine [Prozac] PO DAILY ADELINA Non-Formulary Medication 2 puff 09/14/21 09:00 Budesonide/Formoterol INH BID ADELINA Non-Formulary Medication 1 puff 09/13/21 18:39 Albuterol/Ipratropium INH Q6HR PRN Wheezing Oxycodone HCl 5 mg 09/13/21 16:47 Oxycodone 5 Mg Tab PO Q6H PRN Pain (moderate 4-6) Pantoprazole Sodium 40 mg 09/14/21 11:00 09/14/21 10:55 Pantoprazole 40 Mg Tab.Cr PO 40 mg DAILY ADELINA Administration Polyethylene Glycol 17 gm 09/13/21 16:52 Polyethylene Glycol 3350 Powder 17 Gm Packet PO DAILY PRN Constipation Senna 8.6 mg 09/13/21 16:52 Sennosides 8.6 Mg Tab PO DAILY PRN Constipation Simethicone 80 mg 09/13/21 17:00 09/14/21 08:45 Simethicone 80 Mg Tab.Chew PO 80 mg QID ADELINA Administration Sodium Chloride 10 ml 09/13/21 13:33 09/13/21 14:35 Sodium Chloride 0.9% 10 Ml Syringe FLUSH 10 ml ONETIME PRN Administration IV FLUSH Tamsulosin HCl 0.8 mg 09/13/21 21:00 Tamsulosin 0.4 Mg Cap.Er PO BEDTIME ADELINA Triamcinolone Acetonide gm 09/13/21 16:52 Triamcinolone Acetonide 0.1% Crm 15 Gm Tube TOP BID PRN Itching Discontinued Medications Generic Name Dose Route Start Last Admin Trade Name Freq PRN Reason Stop Dose Admin Atorvastatin Calcium 40 mg 09/13/21 21:00 09/13/21 21:41 Atorvastatin 40 Mg Tab PO 09/13/21 21:01 40 mg ONETIME ONE Administration Diatrizoate Meglum/Diatrizoate Sod 120 ml 09/13/21 13:33 09/13/21 18:29 Diatrizoate Meglumine/Diatrizoate Sodium 37% 120 Ml Bottle PO 09/13/21 13:34 Not Given ONETIME ONE Hydrochlorothiazide 12.5 mg 09/14/21 09:00 Hydrochlorothiazide 12.5 Mg Cap PO DAILY ADELINA Sodium Chloride 500 mls @ 500 mls/hr 09/13/21 14:18 09/13/21 15:00 Normal Saline IV 09/13/21 15:17 500 mls/hr .BOLUS ONE Administration Magnesium Sulfate 4 gm/ Premix 50 mls @ 12.5 mls/hr 09/13/21 14:38 09/13/21 15:00 IV 09/13/21 18:37 12.5 mls/hr ONETIME ONE Administration Magnesium Sulfate 2 gm/ Premix 50 mls @ 25 mls/hr 09/14/21 08:11 09/14/21 0 8:46 IV 09/14/21 10:10 25 mls/hr ONETIME ONE Administration Iopamidol 100 ml 09/13/21 13:33 09/13/21 14:34 Iopamidol 612 Mg/Ml 100 Ml Bottle IVPUSH 09/13/21 13:34 100 ml ONETIME ONE Administration Mirtazapine 15 mg 09/13/21 20:30 09/13/21 21:42 Mirtazapine 15 Mg Tab PO 09/13/21 20:31 15 mg ONETIME ONE Administration Non-Formulary Medication 500 mg 09/13/21 17:00 Abiraterone Acetate [Zytiga] PO DAILY ADELINA Potassium Chloride 40 meq 09/13/21 14:39 09/13/21 15:00 Potassium Chloride 20 Meq Tab.Er PO 09/13/21 14:40 40 meq ONETIME ONE Administration Tamsulosin HCl 0.8 mg 09/13/21 21:00 09/13/21 21:42 Tamsulosin 0.4 Mg Cap.Er PO 09/13/21 21:01 0.8 mg ONETIME ONE Administration - Re-Assessments/Exams Free Text/Narrative Re-Assessment/Exam: 09/13/21 14:38 Hematology reveals a WBC of 11.83, hemoglobin 10.4, hematocrit 32.3, platelet count 247 Chemistry reveals a sodium of 142, potassium 3.6, chloride 113, anion gap 19.6, BUN 30, creatinine 1.5, GFR 45, glucose 127, magnesium 1.[address] of the abdomen. Patient will also receive magnesium 4 g IV. 09/13/21 15:[address] of the abdomen and pelvis: Small bilateral pleural effusions are seen. Pericardial effusion is also noted. Area of atelectasis are noted adjacent to the pleural effusions. Liver shows no focal abnormality. Small hiatal hernia seen within the gastroesophageal reflux of contrast. Spleen size is normal. Small low-density finding is noted within the lower spleen which is stable from prior exam. Adrenal glands show no nodule. Pancreas shows no discrete abnormality. Gallbladder contains no calcified gallstones. Kidneys show symmetric contrast enhancement with no hydronephrosis or mass. There is mild adenopathy being seen within the retroperitoneum. Largest lymph node measures 3.2 cm. Lymph nodes have slightly increased in size from prior exam. These lymph nodes could be malignant in etiology. Distal aorta shows ectasia which is stable from prior exam. There is air being seen within the bladder presumably due to recent instrumentation. Radiation implant seeds are seen within the prostate gland. No pelvic adenopathy is seen. Slight increased density is seen within the subcutaneous fat which is stable from prior exam. Dysphasia narrowing is noted within the lower lumbar spine. Left hip prosthesis is noted. Impression: Small bilateral pleural effusions with bibasilar atelectasis. Pericardial effusion is also noted. 2. Mild adenopathy within the retroperitoneum which is slightly more prominent than on prior study. Difficult to exclude metastatic disease. 3. Air within the bladder most likely representing recent instrumentation. 4. Other nonacute findings as described above. 09/13/21 15:51 Call was placed to [facility] call to consult with cardiology. They are requesting that I have an EKG prior to speaking to the detective sergeant. 09/13/21 16:12 Copy of the EKG was sent to Dr. Nunez to review. Discussed the case with Dr. Nunez, detective sergeant at [facility] in [place] and he recommended that the patient have an echocardiogram completed and call and consult with cardiology tomorrow once we have results of the echocardiogram. Dr. Nunez states that the patient's EKG reveals a significant sinus arrhythmia with questionable intermittent atrial fibrillation 09/13/21 16:20 Discussed the case with , who agrees to accept the patient. I have ordered a troponin to the patient's lab work that has already been collected. Departure - Departure Time of Disposition: 21:33 Disposition: Refer to Observation Condition: Good Clinical Impression: Pericardial effusion - Discharge Information Sepsis Event Note (ED) - Evaluation Sepsis Screening Result: No Definite Risk - My Orders Last 24 Hours: My Active Orders 09/13/21 13:33 Sodium Chloride 0.9% [Saline Flush] 10 ml FLUSH ONETIME PRN 09/13/21 16:30 Admission Status [Patient Status] [ADT] Routine - Assessment/Plan Last 24 Hours: My Active Orders 09/13/21 13:33 Sodium Chloride 0.9% [Saline Flush] 10 ml FLUSH ONETIME PRN 09/13/21 16:30 Admission Status [Patient Status] [ADT] Routine
[2021-09-13] MEDS ORDERED: Sodium Chloride 0.9% 500 ML IV ONE (14:18)
[2021-09-13] MEDS ORDERED: Magnesium Sulfate/Water 4 GM in Premix Bag 1 BAG IV ONE (14:38)
[2021-09-13] MEDS ORDERED: Potassium Chloride 20 MEQ Tab.ER PO ONE (14:39)
--- NOTE | 2021-09-13 15:18 | CT ---
CT abdomen and pelvis Technique: Multiple axial sections were obtained from above the lung apices inferiorly through the lung bases. Intravenous contrast was utilized. Oral contrast has also been given. Reconstructed coronal and sagittal images were obtained. Comparison: Prior CT abdomen and pelvis study of 12/31/18. Findings: Small bilateral pleural effusions are seen. Pericardial effusion is also noted. Areas of atelectasis are noted adjacent to the pleural effusions. Liver shows no focal abnormality. Small hiatal hernia is seen with gastroesophageal reflux of contrast. Spleen size is normal. Small low density finding is noted within the lower spleen which is stable from prior exam. Adrenal glands show no nodule. Pancreas shows no discrete abnormality. Gallbladder contains no calcified gallstones. Kidneys show symmetric contrast enhancement with no hydronephrosis or mass. There is mild adenopathy being seen within the retroperitoneum. Largest lymph node measures 3.2 cm. Lymph nodes have slightly increased in size from prior exam. These lymph nodes could be malignant in etiology. Distal aorta shows ectasia which is stable from prior exam. There is air being seen within the bladder presumably due to recent instrumentation. Radiation implant seeds are seen within the prostate gland. No pelvic adenopathy is seen. Slight increased density is seen within the subcutaneous fat which is stable from prior exam. Bone window settings were reviewed which show diffuse osteopenia. Disc space narrowing is noted within the lower lumbar spine. Left hip prosthesis is noted. Impression: 1. Small bilateral pleural effusions with bibasilar atelectasis. Pericardial effusion is also noted. 2. Mild adenopathy within the retroperitoneum which is slightly more prominent than on prior study. Difficult to exclude metastatic disease. 3. Air within the bladder most likely representing recent instrumentation. 4. Other nonacute findings as described above. Diagnostic code #9
[2021-09-13] MEDS ORDERED: Lactated Ringers 1,000 ML IV SCH (16:45)
[2021-09-13] MEDS ORDERED: Promethazine 6.25 MG in Sodium Chloride 0.9% 50 ML IV PRN (16:47)
[2021-09-13] MEDS ORDERED: Acetaminophen 325 MG Tab PO PRN (16:47)
[2021-09-13] MEDS ORDERED: oxyCODONE 5 MG Tab PO PRN (16:47)
[2021-09-13] MEDS ORDERED: Morphine 2 MG/ML SYRINGE IVPUSH PRN (16:47)
[2021-09-13] MEDS ORDERED: Albuterol/Ipratropium 3.0-0.5 MG/3 ML Neb Soln NEB PRN (16:47)
[2021-09-13] MEDS ORDERED: Polyethylene Glycol 3350 Powder 17 GM Packet PO PRN (16:52)
[2021-09-13] MEDS ORDERED: Sennosides 8.6 MG Tab PO PRN (16:52)
[2021-09-13] MEDS ORDERED: Triamcinolone Acetonide 0.1% Crm 15 GM Tube TOP PRN (16:52)
[2021-09-13] MEDS ORDERED: ABIRATERONE ACETATE 500 MG PO SCH (17:00)
[2021-09-13] MEDS ORDERED: Clopidogrel 75 MG Tab PO SCH (17:00)
--- NOTE | 2021-09-13 17:21 | PCM.HP.2 ---
H&P History of Present Illness - General Date of Service: 09/13/21 Admit Problem/Dx: Admission Diagnosis/Problem Admission Diagnosis/Problem Pericardial effusion Source of Information: Patient, Provider - History of Present Illness Initial Comments - Free Text/Narative: 81-year-old male with a history of hypertension and prostate cancer who presented to the ER due to abdomen lump for 2 days. Patient had a colonoscopy t [facility] in [place] by , because of questionable GI bleed. After the procedure, he noted a lump in the right lower quadrant abdomen. Patient otherwise denies abdominal pain, nausea, vomiting, diarrhea, fever, chills, chest pain, palpitation, headache, or dizziness. He called his PCP who recommended him to the ER for further evaluation. In the ER, CT abdomen was performed, showing small bilateral pleural effusions with bibasilar atelectasis. Pericardial effusion is also noted. For the pericardial effusion, ER provider Virgie consulted with print press operator Dr. Nunez at [facility] in [place], who recommended that the patient have an echocardiogram completed and call and consult with cardiology tomorrow once we have results of the echocardiogram. So Virgie called me for admitting the patient for observation. - Related Data Allergies/Adverse Reactions: Allergies Allergy/AdvReac Type Severity Reaction Status Date / Time No Known Allergies Allergy Verified 09/13/21 12:27 Home Medications: Home Meds Calcium Carbonate 1,500 mg PO DAILY 03/07/20 [History] Clopidogrel [Plavix] 75 mg PO DAILY 03/07/20 [History] FLUoxetine [PROzac] 40 mg PO DAILY 03/07/20 [History] Multivitamin [Multivitamins] 1 tab PO DAILY 03/07/20 [History] Vitamin E 400 units PO DAILY 03/07/20 [History] atorvaSTATin Calcium [Lipitor] 40 mg PO BEDTIME 03/07/20 [History] Cholecalciferol (Vitamin D3) [Vitamin D3] 1,000 unit PO DAILY 08/16/20 [History] Levothyroxine [Synthroid] 50 mcg PO ACBREAKFAST 08/16/20 [History] Loperamide HCl [Imodium A-D] 2 mg PO ASDIRECTED PRN 08/16/20 [History] Simethicone 80 mg PO QID 08/16/20 [History] Tamsulosin HCl [Flomax] 0.8 mg PO BEDTIME 08/16/20 [History] hydroCHLOROthiazide [Hydrochlorothiazide] 12.5 mg PO DAILY 08/16/20 [History] polyethylene glycoL 3350 [MiraLAX] 17 gm PO DAILY PRN 08/16/20 [History] Acetaminophen [Aphen] 2 tab PO Q4H PRN 07/07/21 [History] Alum Hydrox/Mag Hydrox/Simeth [Mag-Al Plus] 20 ml PO ASDIRECTED PRN 07/07/21 [History] Ascorbic Acid [C-500] 500 mg PO DAILY 07/07/21 [History] Cholestyramine/Sucrose [Cholestyramine] 4 gm PO DAILY 07/07/21 [History] Ferrous Sulfate [Slow Fe] 142 mg PO DAILY 07/07/21 [History] Hydrocortisone [Hydrocortisone 1% Oint] 1 applic TOP BID PRN 07/07/21 [History] Losartan [Cozaar] 50 mg PO DAILY 07/07/21 [History] Megestrol [Megace 40 MG/ML Susp] 400 mg PO DAILY 07/07/21 [History] Mirtazapine 15 mg PO BEDTIME 07/07/21 [History] Ondansetron [Zofran ODT] 1 tab PO QID PRN 07/07/21 [History] Pramoxine HCl [Cerave Itch Relief] 1 applic TOP BID PRN 07/07/21 [History] Triamcinolone Acetonide [Triamcinolone Acetonide 0.1% Crm] 1 applic TOP BID PRN 07/07/21 [History] Acetaminophen [Acetaminophen Extra Strength] 500 mg PO Q4H PRN 07/12/21 [History] Magnesium Oxide 400 mg PO QAM 07/12/21 [History] Abiraterone Acetate [Zytiga] 500 mg PO DAILY 08/17/21 [History] Calcium Carbonate [Tums] 500 mg PO DAILY PRN 08/17/21 [History] Sennosides [Senna] 8.6 mg PO DAILY PRN 08/17/21 [History] cephALEXin [Keflex] 500 mg PO BID 08/17/21 [History] Past Medical History HEENT History: Reports: Cataract, Impaired Vision Cardiovascular History: Reports: Hypertension Respiratory History: Reports: None Gastrointestinal History: Reports: GERD Other Gastrointestinal History: ulcer Other Genitourinary History: Prostate Cancer Musculoskeletal History: Reports: Arthritis Neurological History: Reports: Other (See Below) Other Neuro History: stroke 7 months ago Psychiatric History: Reports: Addiction, Suicide Attempt Other Psychiatric History: Suicide attempt 12/26/18-12/27/18 Endocrine/Metabolic History: Reports: Osteopenia Hematologic History: Reports: None Immunologic History: Reports: None Oncologic (Cancer) History: Reports: Prostate Dermatologic History: Reports: None - Infectious Disease History Infectious Disease History: Reports: Chicken Pox - Past Surgical History HEENT Surgical History: Reports: Eye Surgery, Oral Surgery, Tonsillectomy Cardiovascular Surgical History: Reports: None GI Surgical History: Reports: Colonoscopy Male Surgical History: Reports: Other (See Below) Other Male Surgeries/Procedures: patient has seeds placed for prostrate cancer. Musculoskeletal Surgical History: Reports: None Oncologic Surgical History: Reports: Other (See Below) Other Oncologic Surgeries/Procedures: Prostate biopsy x2 Social & Family History - Family History Family Medical History: No Pertinent Family History HEENT: Reports: Impaired Vision Cardiac: Reports: None Respiratory: Reports: None Musculoskeletal: Reports: Arthritis Neurological: Reports: Alzheimers Disease, Cerebral Aneurysms Endocrine/Metabolic: Reports: None Oncologic: Reports: Breast, Prostate - Tobacco Use Tobacco Use Status *Q: Former Tobacco User Years of Tobacco use: 60 Packs/Tins Daily: 1 Used Tobacco, but Quit: Yes Month/Year Tobacco Last Used: 10/2018 Second Hand Smoke Exposure: No - Caffeine Use Caffeine Use: Reports: None Other Caffeine Use: Daily - Recreational Drug Use Recreational Drug Use: No - Living Situation & Occupation Living situation: Reports: Single Occupation: Retired H&P Review of Systems - Review of Systems: Review Of Systems: See Below General: Reports: No Symptoms HEENT: Reports: No Symptoms Pulmonary: Reports: No Symptoms Cardiovascular: Reports: No Symptoms Gastrointestinal: Reports: Other (abdominal lump) Genitourinary: Reports: No Symptoms Musculoskeletal: Reports: No Symptoms Skin: Reports: No Symptoms Psychiatric: Reports: No Symptoms Neurological: Reports: No Symptoms Hematologic/Lymphatic: Reports: No Symptoms Immunologic: Reports: No Symptoms Exam - Exam Exam: See Below - Vital Signs Vital Signs: Last Vital Signs Temp 37.3 C 09/13/21 12:21 Pulse 95 09/13/21 12:21 Resp 20 09/13/21 12:21 BP 135/74 09/13/21 12:21 Pulse Ox 98 09/13/21 12:21 Weight: 71.214 kg - Exam General: Alert, Oriented, Cooperative HEENT: Conjunctiva Clear, EOMI, Pupils Equal, Pupils Reactive Neck: Supple, Trachea Midline, Full Range of Motion Lungs: Clear to Auscultation, Normal Respiratory Effort Cardiovascular: Regular Rate, Regular Rhythm, Normal S1, Normal S2 GI/Abdominal Exam: Normal Bowel Sounds, Soft, Non-Tender, Other (4 cm x 2 cm to his right lower quadrant) Extremities: Normal Inspection, Normal Range of Motion, Non-Tender, No Pedal Edema Skin: Warm, Dry, Intact Neurological: Cranial Nerves Intact, Reflexes Equal Bilateral, Strength Equal Bilateral, Normal Speech, Normal Tone, Sensation Intact Neuro Extensive - Mental Status: Alert, Oriented x3, Normal Mood/Affect Neuro Extensive - Motor, Sensory, Reflexes: CN II-XII Intact Psychiatric: Alert, Normal Affect, Normal Mood - Patient Data Lab Results Last 24 hrs: Laboratory Results - last 24 hr 09/13/21 09/13/21 09/13/21 Range/Units 13:07 13:07 13:07 WBC 11.83 H (4.23-9.07) K/mm3 RBC 3.61 L (4.63-6.08) M/mm3 Hgb 10.4 L D (13.7-17.5) gm/dl Hct 32.3 L (40.1-51.0) % MCV 89.5 (79.0-92.2) fl MCH 28.8 (25.7-32.2) pg MCHC 32.2 (32.2-35.5) g/dl RDW Std Deviation 54.5 H (35.1-43.9) fL Plt Count 247 D (163-337) K/mm3 MPV 10.5 (9.4-12.3) fl Neut % (Auto) 75.3 H (34.0-67.9) % Lymph % (Auto) 16.9 L (21.8-53.1) % [place] % (Auto) 5.3 (5.3-12.2) % Eos % (Auto) 1.6 (0.8-7.0) Baso % (Auto) 0.3 (0.1-1.2) % Neut # (Auto) 8.91 H (1.78-5.38) K/mm3 Lymph # (Auto) 2.00 (1.32-3.57) K/mm3 [place] # (Auto) 0.63 (0.30-0.82) K/mm3 Eos # (Auto) 0.19 (0.04-0.54) K/mm3 Baso # (Auto) 0.03 (0.01-0.08) K/mm3 Sodium 142 (136-145) mEq/L Potassium 3.6 (3.5-5.1) mEq/L Chloride 113 H (98-107) mEq/L Carbon Dioxide 13 L (21-32) mEq/L Anion Gap 19.6 H (5-15) BUN 30 H D (7-18) mg/dL Creatinine 1.5 H D (0.7-1.3) mg/dL Est Cr Clr Drug Dosing 36.72 mL/min Estimated GFR (MDRD) 45 (>60) mL/min BUN/Creatinine Ratio 20.0 H (14-18) Glucose 127 H (70-99) mg/dL Calcium 8.0 L (8.5-10.1) mg/dL Magnesium 1.2 L (1.8-2.4) mg/dL Total Bilirubin 0.3 (0.2-1.0) mg/dL AST 16 (15-37) U/L ALT 23 (16-63) U/L Alkaline Phosphatase 88 (46-116) U/L Troponin I < 0.017 (0.00-0.056) ng/mL Total Protein 6.0 L (6.4-8.2) g/dl Albumin 2.2 L (3.4-5.0) g/dl Globulin 3.8 gm/dL Albumin/Globulin Ratio 0.6 L (1-2) Result Diagrams: 09/13/21 13:07 09/13/21 13:07 Sepsis Event Note - Evaluation Sepsis Screening Result: No Definite Risk - Focused Exam Vital Signs: Vital Signs Temp Pulse Resp BP Pulse Ox 09/13/21 12:21 37.3 C 95 20 135/74 98 Problem List Initiated/Reviewed/Updated: Yes Orders Last 24hrs: Active Orders 24 hr Category Date Time Status Admission Status [Patient Status] [ADT] Routine ADT 09/13/21 16:30 Active Intake and Output [RC] QSHIFT Care 09/13/21 16:43 Ordered Oxygen Therapy [RC] PRN Care 09/13/21 16:42 Ordered Oxygen Therapy [RC] PRN Care 09/13/21 16:47 Ordered RT Aerosol Therapy [RC] ASDIRECTED Care 09/13/21 16:48 Ordered Up With Assistance [RC] ASDIRECTED Care 09/13/21 16:41 Ordered VTE/DVT Education [RC] PER UNIT ROUTINE Care 09/13/21 16:42 Ordered VTE/DVT Education [RC] PER UNIT ROUTINE Care 09/13/21 16:47 Ordered Vital Signs [RC] Q4H Care 09/13/21 16:42 Ordered Vital Signs [RC] Q4H Care 09/13/21 16:47 Ordered OT Evaluation and Treatment [CONS] Routine Cons 09/13/21 16:47 Ordered PT Evaluation and Treatment [CONS] Routine Cons 09/13/21 16:47 Ordered Regular Diet [DIET] Diet 09/13/21 Dinner Ordered Echo 2D wo Cont [US] Urgent Exams 09/13/21 16:51 Ordered Echo Comp wo Cont [US] Stat Exams 09/13/21 16:24 Ordered CBC WITH AUTO DIFF [HEME] DAILY Lab 09/14/21 05:00 Ordered CBC WITH AUTO DIFF [HEME] DAILY Lab 09/15/21 05:00 Ordered COMPREHENSIVE METABOLIC PN,CMP [CHEM] DAILY Lab 09/14/21 05:00 Ordered COMPREHENSIVE METABOLIC PN,CMP [CHEM] DAILY Lab 09/15/21 05:00 Ordered CORONAVIRUS COVID-19 RAYSHAWN [MOLEC] Stat Lab 09/13/21 16:21 Ordered MAGNESIUM [CHEM] DAILY Lab 09/14/21 05:00 Ordered PRO B-TYPE NATRIUR PEPT,BNPPRO [CHEM] Routine Lab 09/14/21 05:00 Ordered TROPONIN I [CHEM] Routine Lab 09/13/21 21:00 Ordered Abiraterone Acetate [Zytiga] Med 09/13/21 17:00 Ordered 500 mg PO DAILY Acetaminophen [TylenoL] Med 09/13/21 16:47 Ordered 650 mg PO Q6H PRN Albuterol/Ipratropium [DuoNeb 3.0-0.5 MG/3 ML] Med 09/13/21 16:47 Ordered 3 ml NEB Q4H PRN Calcium Carbonate Med 09/13/21 17:00 Ordered 1,500 mg PO DAILY Cholestyramine/Sucrose [Cholestyramine Packet] Med 09/14/21 09:00 Ordered 4 gm PO DAILY Clopidogrel [Plavix] Med 09/13/21 17:00 Ordered 75 mg PO DAILY Enoxaparin [Lovenox] Med 09/13/21 16:45 Ordered 40 mg SUBCUT DAILY FLUoxetine [PROzac] Med 09/14/21 09:00 Ordered 40 mg PO DAILY Ferrous Sulfate [Slow Fe] Med 09/14/21 09:00 Ordered 142 mg PO DAILY Lactated Ringers [Ringers, Lactated] 1,000 ml Med 09/13/21 16:45 Ordered IV ASDIRECTED Levothyroxine [Synthroid] Med 09/14/21 06:00 Ordered 50 mcg PO ACBREAKFAST Magnesium Sulfate/Water [Magnesium Sulfate in Water 4 Med 09/13/21 14:38 Act luz GM/50 ML] 4 gm Premix Bag 1 bag IV ONETIME Mirtazapine [Remeron] Med 09/13/21 21:00 Ordered 15 mg PO BEDTIME Morphine Med 09/13/21 16:47 Ordered 2 mg IVPUSH Q4H PRN Multivitamin [Multivitamins] Med 09/14/21 09:00 Ordered 1 tab PO DAILY Promethazine [Phenergan] 6.25 mg Med 09/13/21 16:47 Ordered Sodium Chloride 0.9% [Normal Saline] 50 ml IV Q6H Sennosides [Senna] Med 09/13/21 16:52 Ordered 8.6 mg PO DAILY PRN Simethicone Med 09/13/21 17:00 Ordered 80 mg PO QID Sodium Chloride 0.9% [Saline Flush] Med 09/13/21 13:33 Active 10 ml FLUSH ONETIME PRN Tamsulosin [Flomax] Med 09/13/21 21:00 Ordered 0.8 mg PO BEDTIME Triamcinolone Acetonide [Triamcinolone Acetonide 0.1% Med 09/13/21 16:52 Ordered Crm] 1 applic TOP BID PRN atorvaSTATin [Lipitor] Med 09/13/21 21:00 Ordered 40 mg PO BEDTIME hydroCHLOROthiazide Med 09/14/21 09:00 Ordered 12.5 mg PO DAILY oxyCODONE Med 09/13/21 16:47 Ordered 5 mg PO Q6H PRN polyethylene glycoL 3350 [MiraLAX] Med 09/13/21 16:52 Ordered 17 gm PO DAILY PRN Resuscitation Status Routine Resus Stat 09/13/21 16:41 Ordered Medication Orders Acetaminophen (Acetaminophen 325 Mg Tab) 650 mg PO Q6H PRN PRN Reason: Pain (Mild 1-3)/fever Albuterol/Ipratropium (Albuterol/Ipratropium 3.0-0.5 Mg/3 Ml Neb Soln) 3 ml NEB Q4H PRN PRN Reason: Shortness Of Breath/wheezing Atorvastatin Calcium (Atorvastatin 40 Mg Tab) 40 mg PO BEDTIME ADELINA Calcium Carbonate/Glycine (Calcium Carbonate 600 Mg Tab) 1,500 mg PO DAILY ADELINA Cholestyramine Resin (Cholestyramine/Sucrose Powder 4 Gm Packet) 4 gm PO DAILY ADELINA Clopidogrel Bisulfate (Clopidogrel 75 Mg Tab) 75 mg PO DAILY ADELINA Enoxaparin Sodium (Enoxaparin 40 Mg/0.4 Ml Syringe) 40 mg SUBCUT DAILY ADELINA Hydrochlorothiazide (Hydrochlorothiazide 12.5 Mg Cap) 12.5 mg PO DAILY ADELINA Magnesium Sulfate 4 gm/ Premix 50 mls @ 12.5 mls/hr IV ONETIME ONE Stop: 09/13/21 18:37 Last Admin: 09/13/21 15:00 Dose: 12.5 mls/hr Documented by: SERGIO Lactated Ringer's (Ringers, Lactated) 1,000 mls @ 65 mls/hr IV ASDIRECTED ADELINA Promethazine HCl 6.25 mg/ (Sodium Chloride) 50.25 mls @ 100 mls/hr IV Q6H PRN PRN Reason: Nausea/Vomiting Levothyroxine Sodium (Levothyroxine 50 Mcg Tab) 50 mcg PO ACBREAKFAST ADELINA Mirtazapine (Mirtazapine 15 Mg Tab) 15 mg PO BEDTIME ADELINA Morphine Sulfate (Morphine 2 Mg/Ml Syringe) 2 mg IVPUSH Q4H PRN PRN Reason: Pain (severe 7-10) Stop: 09/14/21 16:48 Non-Formulary Medication (Abiraterone Acetate [Zytiga]) 500 mg PO DAILY ADELINA Non-Formulary Medication (Ferrous Sulfate [Slow Fe]) 142 mg PO DAILY ADELINA Non-Formulary Medication (Fluoxetine [Prozac]) 40 mg PO DAILY ADELINA Non-Formulary Medication (Multivitamin [Multivitamins]) 1 tab PO DAILY [facility] Oxycodone HCl (Oxycodone 5 Mg Tab) 5 mg PO Q6H PRN PRN Reason: Pain (moderate 4-6) Polyethylene Glycol (Polyethylene Glycol 3350 Powder 17 Gm Packet) 17 gm PO DAILY PRN PRN Reason: Constipation Senna (Sennosides 8.6 Mg Tab) 8.6 mg PO DAILY PRN PRN Reason: Constipation Simethicone (Simethicone 80 Mg Tab.Chew) 80 mg PO QID [facility] Sodium Chloride (Sodium Chloride 0.9% 10 Ml Syringe) 10 ml FLUSH ONETIME PRN PRN Reason: IV FLUSH Last Admin: 09/13/21 14:35 Dose: 10 ml Documented by: SHARLENE Tamsulosin HCl (Tamsulosin 0.4 Mg Cap.Er) 0.8 mg PO BEDTIME [facility] Triamcinolone Acetonide (Triamcinolone Acetonide 0.1% Crm 15 Gm Tube) gm TOP BID PRN PRN Reason: Itching Assessment/Plan Comment:: 81-year-old male with a history of hypertension and prostate cancer who presented to the ER due to abdomen lump for [address] abd showed pericardial effusion with no symptoms. Assessment and plan: Pericardial effusion CT abd showed pericardial effusion noted. Incidental finding No symptoms -denies fever, chills, chest pain, palpitation, shortness of breath. Hemodynamically stable print press operator Dr. Nunez at [facility] in [place] was consulted in the ER, who recommended echocardiogram and then consult with cardiology again Dr. Nunez states that the patient's EKG reveals a significant sinus arrhythmia with questionable intermittent atrial fibrillation Troponin BNP Echo TSH Abdominal mass CT abd -small bilateral pleural effusions with bibasilar atelectasis. Pericardial effusion is also noted. Mild adenopathy within the retroperitoneum which is slightly more prominent than on prior study. Difficult to exclude metastatic disease. Air within the bladder most likely representing recent instrumentation. HTN Continue HCTZ 12.5mg daily Losartan 50mg po daily is on hold Hydralazine as needed Hx of prostate cancer Continue abiraterone 500mg daily Follow up with his oncologist Hypothyroidism TSH Continue home med JANIA or CKD creatinine 1.5. It was 1.3 on 08/16/2020 Avoiding nephrotoxic meds Gentle IV fluid Repeat renal function in the morning DVT prophylaxis: Lovenox CODE STATUS: Discussed with patient who would like to think about it - Mortality Measure Prognosis:: Good
[2021-09-13] MEDS ORDERED: hydrALAZINE 20 MG/ML SDV IVPUSH PRN (17:32)
[2021-09-13] MEDS: Enoxaparin 40 MG/0.4 ML Syringe SUBCUT SCH (18:29)
[2021-09-13] MEDS: Calcium Carbonate 500 MG Tab.Chew PO SCH (18:29)
[2021-09-13] MEDS: Simethicone 80 MG Tab.Chew PO SCH ×2 (18:29→21:42)
[2021-09-13] MEDS ORDERED: Non-Formulary Medication 1 Each (Albuterol/Ipratropium 4 GM Inhaler) INH PRN (18:39)
[2021-09-13] MEDS ORDERED: Mirtazapine 15 MG Tab PO ONE (20:30)
[2021-09-13] MEDS ORDERED: Mirtazapine 15 MG Tab PO SCH (21:00)
[2021-09-13] MEDS ORDERED: Tamsulosin 0.4 MG Cap.ER PO ONE (21:00)
[2021-09-13] MEDS ORDERED: atorvaSTATin 40 MG Tab PO SCH (21:00)
[2021-09-13] MEDS ORDERED: atorvaSTATin 40 MG Tab PO ONE (21:00)
[2021-09-13] MEDS ORDERED: Tamsulosin 0.4 MG Cap.ER PO SCH (21:00)
[2021-09-14] MEDS ORDERED: Levothyroxine 50 MCG Tab PO SCH (06:00)
[2021-09-14] MEDS ORDERED: Magnesium Sulfate/Water 2 GM in Premix Bag 1 BAG IV ONE (08:11)
[2021-09-14] MEDS: Enoxaparin 40 MG/0.4 ML Syringe SUBCUT SCH (08:42)
[2021-09-14] MEDS: Calcium Carbonate 500 MG Tab.Chew PO SCH (08:45)
[2021-09-14] MEDS: Simethicone 80 MG Tab.Chew PO SCH (08:45)
--- NOTE | 2021-09-14 08:56 | PCM.DCSUM1 ---
Discharge Summary - Hospital Course HPI Initial Comments: 81-year-old male with a history of hypertension and prostate cancer who presented to the ER due to abdomen lump for 2 days. Patient had a colonoscopy t [facility] in [place] by , because of questionable GI bleed. After the procedure, he noted a lump in the right lower quadrant abdomen. Patient otherwise denies abdominal pain, nausea, vomiting, diarrhea, fever, chills, chest pain, palpitation, headache, or dizziness. He called his PCP who recommended him to the ER for further evaluation. In the ER, CT abdomen was performed, showing small bilateral pleural effusions with bibasilar atelectasis. Pericardial effusion is also noted. For the pericardial effusion, ER provider Virgie consulted with supervisory aide Dr. Nunez at [facility] in [place], who recommended that the patient have an echocardiogram completed and call and c onsult with cardiology tomorrow once we have results of the echocardiogram. So Virgie called me for admitting the patient for observation. Diagnosis: Stroke: No - Discharge Data Discharge Date: 09/14/21 Discharge Disposition: Home, Self-Care 01 Condition: Good - Referral to Home Health Primary Care Physician: Shai Samano MD - Patient Summary/Data Consults: Consultations 09/13/21 16:47 OT Evaluation and Treatment [CONS] Routine PT Evaluation and Treatment [CONS] Routine Hospital Course: Patient was admitted overnight. Echocardiogram done in the emergency department showed left regular ejection fraction, by visual estimation, is 55 to 60%. There is a small pericardial effusion. Pericardial fat pad is present. No tamponade apparent. It was a technically difficult study with suboptimal image quality. Endocardium not well visualized. Suspect normal regional wall motion. Patient had an uneventful night and plan was to discharge him to go to his nephrology appointment at noon. Of note he did have a magnesium of 1.3. We did give him 2 g IV magnesium. He will continue on magnesium as an outpatient and follow-up with his contracting engineer. - Patient Instructions Diet: Heart Healthy Diet, Usual Diet as Tolerated Driving: Do Not Drive Showering/Bathing: May Shower Other/Special Instructions: Follow-up next week with primary care provider. Follow-up today with nephrology. Echocardiogram showed only a small pericardial effusion without tamponade. Left ventricular fraction was estimated to be 55 to 60%. It appears normal regional wall motion although it is limited in quality. - Discharge Plan *PRESCRIPTION DRUG MONITORING PROGRAM REVIEWED*: No *COPY OF PRESCRIPTION DRUG MONITORING REPORT IN PATIENT ANTONIO: No Home Medications: Home Meds Calcium Carbonate 1,500 mg PO DAILY 03/07/20 [History] Clopidogrel [Plavix] 75 mg PO DAILY 03/07/20 [History] FLUoxetine [PROzac] 40 mg PO DAILY 03/07/20 [History] Multivitamin [Multivitamins] 1 tab PO DAILY 03/07/20 [History] Vitamin E 400 units PO DAILY 03/07/20 [History] atorvaSTATin Calcium [Lipitor] 40 mg PO BEDTIME 03/07/20 [History] Cholecalciferol (Vitamin D3) [Vitamin D3] 1,000 unit PO DAILY 08/16/20 [History] Levothyroxine [Synthroid] 50 mcg PO ACBREAKFAST 08/16/20 [History] Loperamide HCl [Imodium A-D] 2 mg PO ASDIRECTED PRN 08/16/20 [History] Simethicone 80 mg PO QID 08/16/20 [History] Tamsulosin HCl [Flomax] 0.8 mg PO BEDTIME 08/16/20 [History] polyethylene glycoL 3350 [MiraLAX] 17 gm PO DAILY PRN 08/16/20 [History] Acetaminophen [Aphen] 2 tab PO Q4H PRN 07/07/21 [History] Alum Hydrox/Mag Hydrox/Simeth [Mag-Al Plus] 20 ml PO ASDIRECTED PRN 07/07/21 [History] Ascorbic Acid [C-500] 500 mg PO DAILY 07/07/21 [History] Cholestyramine/Sucrose [Cholestyramine] 4 gm PO DAILY 07/07/21 [History] Ferrous Sulfate [Slow Fe] 142 mg PO DAILY 07/07/21 [History] Hydrocortisone [Hydrocortisone 1% Oint] 1 applic TOP BID PRN 07/07/21 [History] Losartan [Cozaar] 50 mg PO DAILY 07/07/21 [History] Megestrol [Megace 40 MG/ML Susp] 400 mg PO DAILY 07/07/21 [History] Mirtazapine 15 mg PO BEDTIME 07/07/21 [History] Ondansetron [Zofran ODT] 1 tab PO QID PRN 07/07/21 [History] Pramoxine HCl [Cerave Itch Relief] 1 applic TOP BID PRN 07/07/21 [History] Triamcinolone Acetonide [Triamcinolone Acetonide 0.1% Crm] 1 applic TOP BID PRN 07/07/21 [History] Magnesium Oxide 400 mg PO QAM 07/12/21 [History] Calcium Carbonate [Tums] 500 mg PO DAILY PRN 08/17/21 [History] Sennosides [Senna] 8.6 mg PO DAILY PRN 08/17/21 [History] Albuterol/Ipratropium [Combivent Respimat] 1 puff INH Q6HR PRN 09/13/21 [ History] Budesonide/Formoterol [Symbicort 160-4.5 MCG] 2 puff INH BID 09/13/21 [History] Pantoprazole [ProTONIX] 40 mg PO DAILY 09/13/21 [History] Abiraterone Acetate [Zytiga] 500 mg PO DAILY 09/14/21 [Rx] Oxygen Therapy Mode: Room Air Patient Handouts: Indwelling Urinary Catheter Care, Adult, Pericardial Effusion Forms: ED Department Discharge Referrals: Shai Samano MD [Primary Care Provider] - 09/20/21 3:30 pm (Please check in at 3:15) Mejia Wooten MD [Ordering Only Provider] - (Follow up as needed) - Discharge Summary/Plan Comment DC Time >30 min.: No Total # of Minutes for Discharge Time: 20 - General Info Date of Service: 09/14/21 Admission Dx/Problem (Free Text: Admission Diagnosis/Problem Admission Diagnosis/Problem Pericardial effusion Subjective Update: Patient has no complaints. He denies any pain. No shortness of breath. No chest pain, shortness of breath, wheezing, palpitations, orthopnea, PND. Functional Status: Reports: Pain Controlled - Review of Systems General: Reports: No Symptoms HEENT: Reports: No Symptoms Pulmonary: Reports: No Symptoms Cardiovascular: Reports: No Symptoms Gastrointestinal: Reports: No Symptoms Musculoskeletal: Reports: No Symptoms - Patient Data Vitals - Most Recent: Last Vital Signs Temp 97.3 F 09/14/21 07:33 Pulse 98 09/14/21 07:33 Resp 18 09/14/21 07:33 BP 159/95 H 09/14/21 07:33 Pulse Ox 97 09/14/21 07:33 Weight - Most Recent: 158 lb 4.8 oz I&O - Last 24 hours: Intake & Output 09/13/21 09/14/21 09/14/21 22:59 06:59 14:59 Intake Total 800 Output Total 600 Balance 200 Lab Results - Last 24 hrs: Laboratory Results - last 24 hr 09/13/21 09/13/21 09/13/21 Range/Units 13:07 13:07 13:07 WBC 11.83 H (4.23-9.07) K/mm3 RBC 3.61 L (4.63-6.08) M/mm3 Hgb 10.4 L D (13.7-17.5) gm/dl Hct 32.3 L (40.1-51.0) % MCV 89.5 (79.0-92.2) fl MCH 28.8 (25.7-32.2) pg MCHC 32.2 (32.2-35.5) g/dl RDW Std Deviation 54.5 H (35.1-43.9) fL Plt Count 247 D (163-337) K/mm3 MPV 10.5 (9.4-12.3) fl Neut % (Auto) 75.3 H (34.0-67.9) % Lymph % (Auto) 16.9 L (21.8-53.1) % [place] % (Auto) 5.3 (5.3-12.2) % Eos % (Auto) 1.6 (0.8-7.0) Baso % (Auto) 0.3 (0.1-1.2) % Neut # (Auto) 8.91 H (1.78-5.38) K/mm3 Lymph # (Auto) 2.00 (1.32-3.57) K/mm3 [place] # (Auto) 0.63 (0.30-0.82) K/mm3 Eos # (Auto) 0.19 (0.04-0.54) K/mm3 Baso # (Auto) 0.03 (0.01-0.08) K/mm3 Sodium 142 (136-145) mEq/L Potassium 3.6 (3.5-5.1) mEq/L Chloride 113 H (98-107) mEq/L Carbon Dioxide 13 L (21-32) mEq/L Anion Gap 19.6 H (5-15) BUN 30 H D (7-18) mg/dL Creatinine 1.5 H D (0.7-1.3) mg/dL Est Cr Clr Drug Dosing 36.72 mL/min Estimated GFR (MDRD) 45 (>60) mL/min BUN/Creatinine Ratio 20.0 H (14-18) Glucose 127 H (70-99) mg/dL Calcium 8.0 L (8.5-10.1) mg/dL Magnesium 1.2 L (1.8-2.4) mg/dL Total Bilirubin 0.3 (0.2-1.0) mg/dL AST 16 (15-37) U/L ALT 23 (16-63) U/L Alkaline Phosphatase 88 (46-116) U/L Troponin I < 0.017 (0.00-0.056) ng/mL NT-Pro-B Natriuret Pep (0-450) pg/mL Total Protein 6.0 L (6.4-8.2) g/dl Albumin 2.2 L (3.4-5.0) g/dl Globulin 3.8 gm/dL Albumin/Globulin Ratio 0.6 L (1-2) TSH 3rd Generation (0.358-3.74) uIU/mL SARS-CoV-2 RNA (RAYSHAWN) (NEGATIVE) MRSA (PCR) 09/13/21 09/13/21 09/13/21 Range/Units 18:55 20:56 21:22 WBC (4.23-9.07) K/mm3 RBC (4.63-6.08) M/mm3 Hgb (13.7-17.5) gm/dl Hct (40.1-51.0) % MCV (79.0-92.2) fl MCH (25.7-32.2) pg MCHC (32.2-35.5) g/dl RDW Std Deviation (35.1-43.9) fL Plt Count (163-337) K/mm3 MPV (9.4-12.3) fl Neut % (Auto) (34.0-67.9) % Lymph % (Auto) (21.8-53.1) % [place] % (Auto) (5.3-12.2) % Eos % (Auto) (0.8-7.0) Baso % (Auto) (0.1-1.2) % Neut # (Auto) (1.78-5.38) K/mm3 Lymph # (Auto) (1.32-3.57) K/mm3 [place] # (Auto) (0.30-0.82) K/mm3 Eos # (Auto) (0.04-0.54) K/mm3 Baso # (Auto) (0.01-0.08) K/mm3 Sodium (136-145) mEq/L Potassium (3.5-5.1) mEq/L Chloride (98-107) mEq/L Carbon Dioxide (21-32) mEq/L Anion Gap (5-15) BUN (7-18) mg/dL Creatinine (0.7-1.3) mg/dL Est Cr Clr Drug Dosing mL/min Estimated GFR (MDRD) (>60) mL/min BUN/Creatinine Ratio (14-18) Glucose (70-99) mg/dL Calcium (8.5-10.1) mg/dL Magnesium (1.8-2.4) mg/dL Total Bilirubin (0.2-1.0) mg/dL AST (15-37) U/L ALT (16-63) U/L Alkaline Phosphatase (46-116) U/L Troponin I < 0.017 (0.00-0.056) ng/mL NT-Pro-B Natriuret Pep (0-450) pg/mL Total Protein (6.4-8.2) g/dl Albumin (3.4-5.0) g/dl Globulin gm/dL Albumin/Globulin Ratio (1-2) TSH 3rd Generation (0.358-3.74) uIU/mL SARS-CoV-2 RNA (RAYSHAWN) Negative (NEGATIVE) MRSA (PCR) Positive H 09/14/21 09/14/21 09/14/21 Range/Units 04:47 04:47 04:49 WBC 9.58 H (4.23-9.07) K/mm3 RBC 3.66 L (4.63-6.08) M/mm3 Hgb 10.5 L (13.7-17.5) gm/dl Hct 33.0 L (40.1-51.0) % MCV 90.2 (79.0-92.2) fl MCH 28.7 (25.7-32.2) pg MCHC 31.8 L (32.2-35.5) g/dl RDW Std Deviation 54.8 H (35.1-43.9) fL Plt Count 267 (163-337) K/mm3 MPV 11.2 (9.4-12.3) fl Neut % (Auto) 71.7 H (34.0-67.9) % Lymph % (Auto) 19.4 L (21.8-53.1) % [place] % (Auto) 5.8 (5.3-12.2) % Eos % (Auto) 2.1 (0.8-7.0) Baso % (Auto) 0.3 (0.1-1.2) % Neut # (Auto) 6.86 H (1.78-5.38) K/mm3 Lymph # (Auto) 1.86 (1.32-3.57) K/mm3 [place] # (Auto) 0.56 (0.30-0.82) K/mm3 Eos # (Auto) 0.20 (0.04-0.54) K/mm3 Baso # (Auto) 0.03 (0.01-0.08) K/mm3 Sodium 142 (136-145) mEq/L Potassium 4.9 (3.5-5.1) mEq/L Chloride 113 H (98-107) mEq/L Carbon Dioxide 15 L (21-32) mEq/L Anion Gap 18.9 H (5-15) BUN 27 H (7-18) mg/dL Creatinine 1.7 H (0.7-1.3) mg/dL Est Cr Clr Drug Dosing 33.53 mL/min Estimated GFR (MDRD) 39 (>60) mL/min BUN/Creatinine Ratio 15.9 (14-18) Glucose 80 (70-99) mg/dL Calcium 8.1 L (8.5-10.1) mg/dL Magnesium 1.3 L (1.8-2.4) mg/dL Total Bilirubin 0.3 (0.2-1.0) mg/dL AST 15 (15-37) U/L ALT 17 (16-63) U/L Alkaline Phosphatase 89 (46-116) U/L Troponin I (0.00-0.056) ng/mL NT-Pro-B Natriuret Pep 3550 H (0-450) pg/mL Total Protein 6.0 L (6.4-8.2) g/dl Albumin 2.3 L (3.4-5.0) g/dl Globulin 3.7 gm/dL Albumin/Globulin Ratio 0.6 L (1-2) TSH 3rd Generation 1.960 (0.358-3.74) uIU/mL SARS-CoV-2 RNA (RAYSHAWN) (NEGATIVE) MRSA (PCR) Med Orders - Current: Current Medications Acetaminophen (Acetaminophen 325 Mg Tab) 650 mg PO Q6H PRN PRN Reason: Pain (Mild 1-3)/fever Albuterol/Ipratropium (Albuterol/Ipratropium 3.0-0.5 Mg/3 Ml Neb Soln) 3 ml NEB Q4H PRN PRN Reason: Shortness Of Breath/wheezing Atorvastatin Calcium (Atorvastatin 40 Mg Tab) 40 mg PO BEDTIME [facility] Calcium Carbonate/Glycine (Calcium Carbonate 500 Mg Tab.Chew) 1,500 mg PO DAILY [facility] Last Admin: 09/13/21 18:29 Dose: Not Given Documented by: Cholestyramine Resin (Cholestyramine/Sucrose Powder 4 Gm Packet) 4 gm PO DAILY [facility] Clopidogrel Bisulfate (Clopidogrel 75 Mg Tab) 75 mg PO DAILY [facility] Enoxaparin Sodium (Enoxaparin 40 Mg/0.4 Ml Syringe) 40 mg SUBCUT DAILY [facility] Last Admin: 09/13/21 18:29 Dose: Not Given Documented by: Hydralazine HCl (Hydralazine 20 Mg/Ml Sdv) 10 mg IVPUSH Q4H PRN PRN Reason: Hypertension Last Admin: 09/13/21 21:56 Dose: 10 mg Documented by: Hydrochlorothiazide (Hydrochlorothiazide 12.5 Mg Cap) 12.5 mg PO DAILY [facility] Lactated Ringer's (Ringers, Lactated) 1,000 mls @ 65 mls/hr IV ASDIRECTED [facility] Last Admin: 09/13/21 21:55 Dose: 65 mls/hr Documented by: Promethazine HCl 6.25 mg/ (Sodium Chloride) 50.25 mls @ 100 mls/hr IV Q6H PRN PRN Reason: Nausea/Vomiting Magnesium Sulfate 2 gm/ Premix 50 mls @ 25 mls/hr IV ONETIME ONE Stop: 09/14/21 10:10 Levothyroxine Sodium (Levothyroxine 50 Mcg Tab) 50 mcg PO ACBREAKFAST [facility] Magnesium Oxide (Magnesium Oxide 400 Mg Tab) 400 mg PO BID [facility] Mirtazapine (Mirtazapine 15 Mg Tab) 15 mg PO BEDTIME [facility] Morphine Sulfate (Morphine 2 Mg/Ml Syringe) 2 mg IVPUSH Q4H PRN PRN Reason: Pain (severe 7-10) Stop: 09/14/21 16:48 Multivitamins/Minerals/Vitamin C (Multivitamin Tab) 1 tab PO DAILY [facility] Non-Formulary Medication (Abiraterone Acetate [Zytiga]) 500 mg PO DAILY [facility] Non-Formulary Medication (Ferrous Sulfate [Slow Fe]) 142 mg PO DAILY [facility] Non-Formulary Medication (Fluoxetine [Prozac]) 40 mg PO DAILY [facility] Non-Formulary Medication (Budesonide/Formoterol) 2 puff INH BID [facility] Non-Formulary Medication (Albuterol/Ipratropium) 1 puff INH Q6HR PRN PRN Reason: Wheezing Oxycodone HCl (Oxycodone 5 Mg Tab) 5 mg PO Q6H PRN PRN Reason: Pain (moderate 4-6) Pantoprazole Sodium (Pantoprazole 40 Mg Tab.Cr) 40 mg PO DAILY [facility] Polyethylene Glycol (Polyethylene Glycol 3350 Powder 17 Gm Packet) 17 gm PO DAILY PRN PRN Reason: Constipation Senna (Sennosides 8.6 Mg Tab) 8.6 mg PO DAILY PRN PRN Reason: Constipation Simethicone (Simethicone 80 Mg Tab.Chew) 80 mg PO QID [facility] Last Admin: 09/13/21 21:42 Dose: 80 mg Documented by: Sodium Chloride (Sodium Chloride 0.9% 10 Ml Syringe) 10 ml FLUSH ONETIME PRN PRN Reason: IV FLUSH Last Admin: 09/13/21 14:35 Dose: 10 ml Documented by: Tamsulosin HCl (Tamsulosin 0.4 Mg Cap.Er) 0.8 mg PO BEDTIME [facility] Triamcinolone Acetonide (Triamcinolone Acetonide 0.1% Crm 15 Gm Tube) gm TOP BID PRN PRN Reason: Itching Discontinued Medications Atorvastatin Calcium (Atorvastatin 40 Mg Tab) 40 mg PO ONETIME ONE Stop: 09/13/21 21:01 Last Admin: 09/13/21 21:41 Dose: 40 mg Documented by: Diatrizoate Meglum/Diatrizoate Sod (Diatrizoate Meglumine/Diatrizoate Sodium 37% 120 Ml Bottle) 120 ml PO ONETIME ONE Stop: 09/13/21 13:34 Last Admin: 09/13/21 18:29 Dose: Not Given Documented by: Sodium Chloride (Normal Saline) 500 mls @ 500 mls/hr IV .BOLUS ONE Stop: 09/13/21 15:17 Last Admin: 09/13/21 15:00 Dose: 500 mls/hr Documented by: Magnesium Sulfate 4 gm/ Premix 50 mls @ 12.5 mls/hr IV ONETIME ONE Stop: 09/13/21 18:37 Last Admin: 09/13/21 15:00 Dose: 12.5 mls/hr Documented by: Iopamidol (Iopamidol 612 Mg/Ml 100 Ml Bottle) 100 ml IVPUSH ONETIME ONE Stop: 09/13/21 13:34 Last Admin: 09/13/21 14:34 Dose: 100 ml Documented by: Mirtazapine (Mirtazapine 15 Mg Tab) 15 mg PO ONETIME ONE Stop: 09/13/21 20:31 Last Admin: 09/13/21 21:42 Dose: 15 mg Documented by: Potassium Chloride (Potassium Chloride 20 Meq Tab.Er) 40 meq PO ONETIME ONE Stop: 09/13/21 14:40 Last Admin: 09/13/21 15:00 Dose: 40 meq Documented by: Tamsulosin HCl (Tamsulosin 0.4 Mg Cap.Er) 0.8 mg PO ONETIME ONE Stop: 09/13/21 21:01 Last Admin: 09/13/21 21:42 Dose: 0.8 mg Documented by: - Exam General: Reports: Alert, Oriented HEENT: Reports: Pupils Equal, Mucous Membr. Moist/[place]: Reports: Supple Lungs: Reports: Clear to Auscultation, Normal Respiratory Effort Cardiovascular: Reports: Regular Rate, Regular Rhythm GI/Abdominal Exam: Normal Bowel Sounds, Soft, Non-Tender, No Distention Extremities: Normal Inspection, No Pedal Edema, Normal Capillary Refill Skin: Reports: Warm, Dry, Intact Psy/Mental Status: Reports: Alert, Normal Affect, Normal Mood
[2021-09-14] MEDS ORDERED: Magnesium Oxide 400 MG Tab PO SCH (09:00)
[2021-09-14] MEDS ORDERED: FERROUS SULFATE 142 MG PO SCH (09:00)
[2021-09-14] MEDS ORDERED: Multivitamin Tab PO SCH (09:00)
[2021-09-14] MEDS ORDERED: FLUOXETINE 40 MG PO SCH (09:00)
[2021-09-14] MEDS ORDERED: Hydrochlorothiazide 12.5 MG Cap PO SCH (09:00)
[2021-09-14] MEDS ORDERED: Cholestyramine/Sucrose Powder 4 GM Packet PO SCH (09:00)
[2021-09-14] MEDS ORDERED: Non-Formulary Medication 1 Each (Budesonide/Formoterol 6 GM Inhaler) INH SCH (09:00)
[2021-09-14] MEDS ORDERED: Pantoprazole 40 MG Tab.CR PO SCH (11:00)
== END 2021-09-14 11:25 | disposition home or self-care (01) ==
LOC: JD.ED 11:44 → JD.MS 17:41
PROVIDERS: ADMIT Internal Medicine; ATTEND Internal Medicine
DX: R19.00 Intra-abdominal and pelvic swelling, mass and lump, unspecified site (principal); I10 Essential (primary) hypertension; C61 Malignant neoplasm of prostate; K21.9 Gastro-esophageal reflux disease without esophagitis; I31.3 Pericardial effusion (noninflammatory); Z20.822 Contact with and (suspected) exposure to COVID-19; Z98.890 Other specified postprocedural states; Z87.891 Personal history of nicotine dependence
CPT/HCPCS: 36415; 74177; 80053; 83735; 83880; 84443; 84484; 85025; 87641; 93005; 93306; 96365; 96366; 97162; 99285; A9270; J0360; J1650; J3475; J7030; J7120; Q9963; Q9967; U0002; 96372; 96375; G0378

== ENCOUNTER 2021-10-02 12:12 | Emergency (ER) | payer MEDICARE ==
[2021-10-02] MEDS ORDERED: Lidocaine 2% Jelly 10 ML Urojet MUCMEM ONE (12:47)
--- NOTE | 2021-10-02 14:26 | EDM.PDOC ---
ED HPI GENERAL MEDICAL PROBLEM - General Chief Complaint: Genitourinary Problem Stated Complaint: JOSEPHINE MEDICAL Time Seen by Provider: 10/02/21 12:32 Source of Information: Reports: Patient, RN Notes Reviewed History Limitations: Reports: No Limitations - History of Present Illness INITIAL COMMENTS - FREE TEXT/NARRATIVE: Patient is an 81-year-old male presenting to the emergency department from [facility] with complaints of inability to reinsert Gunter catheter. Patient pulled his catheter out earlier. Nursing staff attempted to reinsert but were unsuccessful. The do not have coud-tip catheters in their facility, therefore they sent him here to have it reinserted. Patient denies any pain. He has had no urethral bleeding. - Related Data Allergies Allergy/AdvReac Type Severity Reaction Status Date / Time No Known Allergies Allergy Verified 09/13/21 12:27 Home Meds: Home Meds Calcium Carbonate 1,500 mg PO DAILY 03/07/20 [History] Clopidogrel [Plavix] 75 mg PO DAILY 03/07/20 [History] FLUoxetine [PROzac] 40 mg PO DAILY 03/07/20 [History] Multivitamin [Multivitamins] 1 tab PO DAILY 03/07/20 [History] Vitamin E 400 units PO DAILY 03/07/20 [History] atorvaSTATin Calcium [Lipitor] 40 mg PO BEDTIME 03/07/20 [History] Cholecalciferol (Vitamin D3) [Vitamin D3] 1,000 unit PO DAILY 08/16/20 [History] Levothyroxine [Synthroid] 50 mcg PO ACBREAKFAST 08/16/20 [History] Loperamide HCl [Imodium A-D] 2 mg PO ASDIRECTED PRN 08/16/20 [History] Simethicone 80 mg PO QID 08/16/20 [History] Tamsulosin HCl [Flomax] 0.8 mg PO BEDTIME 08/16/20 [History] polyethylene glycoL 3350 [MiraLAX] 17 gm PO DAILY PRN 08/16/20 [History] Acetaminophen [Aphen] 2 tab PO Q4H PRN 07/07/21 [History] Alum Hydrox/Mag Hydrox/Simeth [Mag-Al Plus] 20 ml PO ASDIRECTED PRN 07/07/21 [History] Ascorbic Acid [C-500] 500 mg PO DAILY 07/07/21 [History] Cholestyramine/Sucrose [Cholestyramine] 4 gm PO DAILY 07/07/21 [History] Ferrous Sulfate [Slow Fe] 142 mg PO DAILY 07/07/21 [History] Hydrocortisone [Hydrocortisone 1% Oint] 1 applic TOP BID PRN 07/07/21 [History] Losartan [Cozaar] 50 mg PO DAILY 07/07/21 [History] Megestrol [Megace 40 MG/ML Susp] 400 mg PO DAILY 07/07/21 [History] Mirtazapine 15 mg PO BEDTIME 07/07/21 [History] Ondansetron [Zofran ODT] 1 tab PO QID PRN 07/07/21 [History] Pramoxine HCl [Cerave Itch Relief] 1 applic TOP BID PRN 07/07/21 [History] Triamcinolone Acetonide [Triamcinolone Acetonide 0.1% Crm] 1 applic TOP BID PRN 07/07/21 [History] Magnesium Oxide 400 mg PO QAM 07/12/21 [History] Calcium Carbonate [Tums] 500 mg PO DAILY PRN 08/17/21 [History] Sennosides [Senna] 8.6 mg PO DAILY PRN 08/17/21 [History] Albuterol/Ipratropium [Combivent Respimat] 1 puff INH Q6HR PRN 09/13/21 [History] Budesonide/Formoterol [Symbicort 160-4.5 MCG] 2 puff INH BID 09/13/21 [History] Pantoprazole [ProTONIX] 40 mg PO DAILY 09/13/21 [History] Abiraterone Acetate [Zytiga] 500 mg PO DAILY 09/14/21 [Rx] Past Medical History HEENT History: Reports: Cataract, Impaired Vision Cardiovascular History: Reports: High Cholesterol, Hypertension, OR Respiratory History: Reports: None Gastrointestinal History: Reports: GERD Other Gastrointestinal History: ulcer Genitourinary History: Reports: BPH Other Genitourinary History: Prostate Cancer Musculoskeletal History: Reports: Arthritis Neurological History: Reports: CVA, Other (See Below) Other Neuro History: stroke 7 months ago Psychiatric History: Reports: Addiction, Suicide Attempt Other Psychiatric History: Suicide attempt 12/26/18-12/27/18 Endocrine/Metabolic History: Reports: Osteopenia Hematologic History: Reports: None Immunologic History: Reports: None Oncologic (Cancer) History: Reports: Prostate Dermatologic History: Reports: None - Infectious Disease History Infectious Disease History: Reports: Chicken Pox - Past Surgical History HEENT Surgical History: Reports: Eye Surgery, Oral Surgery, Tonsillectomy Cardiovascular Surgical History: Reports: None GI Surgical History: Reports: Colonoscopy Other GI Surgeries/Procedures: Colonoscopy done 09/12/21 patient reported. Male Surgical History: Reports: Other (See Below) Other Male Surgeries/Procedures: patient has seeds placed for prostrate cancer. Musculoskeletal Surgical History: Reports: None Oncologic Surgical History: Reports: Other (See Below) Other Oncologic Surgeries/Procedures: Prostate biopsy x2 Social & Family History - Family History Family Medical History: No Pertinent Family History HEENT: Reports: Impaired Vision Cardiac: Reports: None Respiratory: Reports: None Musculoskeletal: Reports: Arthritis Neurological: Reports: Alzheimers Disease, Cerebral Aneurysms Endocrine/Metabolic: Reports: None Oncologic: Reports: Breast, Prostate - Caffeine Use Caffeine Use: Reports: Coffee, Soda Other Caffeine Use: Daily - Living Situation & Occupation Living situation: Reports: Single Occupation: Retired ED ROS GENERAL - Review of Systems Review Of Systems: Comprehensive ROS is negative, except as noted in HPI. ED EXAM, RENAL/ - Physical Exam Exam: See Below Exam Limited By: No Limitations General Appearance: Alert, WD/WN, No Apparent Distress Respiratory/Chest: No Respiratory Distress, Lungs Clear, Normal Breath Sounds, No Accessory Muscle Use, Chest Non-Tender Cardiovascular: Normal Peripheral Pulses, Regular Rate, Rhythm, No Edema, No Gallop, No JVD, No Murmur, No Rub Neurological: Alert, Oriented Psychiatric: Normal Affect, Normal Mood Skin Exam: Warm, Dry, Intact, Normal Color, No Rash Course - Vital Signs Last Recorded V/S: Last Vital Signs Temp 98.6 F 10/02/21 12:29 Pulse 92 10/02/21 12:29 Resp 16 10/02/21 12:29 BP 132/76 10/02/21 12:29 Pulse Ox 96 10/02/21 12:29 - Orders/Labs/Meds Meds: Medications Discontinued Medications Generic Name Dose Route Start Last Admin Trade Name Freq PRN Reason Stop Dose Admin Lidocaine HCl 10 ml 10/02/21 12:47 10/02/21 13:53 Lidocaine 2% Jelly 10 Ml Urojet MUCMEM 10/02/21 12:48 10 ml ONETIME ONE Administration - Re-Assessments/Exams Free Text/Narrative Re-Assessment/Exam: Patient is an 81-year-old male presenting to the emergency department from [facility] to have Gunter catheter replaced. Patient pulled his catheter out and they were unable to reinsert it. He has a history of prostate cancer. Normally uses an 18 [place] catheter. I have ordered Urojet and Gunter catheter insertion. 10/02/21 14:00 BAKARI Thornton, was able to insert a coud tip Gunter catheter with little difficulty. Patient will be discharged back to the [facility] with routine catheter care. Discharge instructions as documented. Departure - Departure Time of Disposition: 20:08 Disposition: DC/Tfer to [facility] 03 Condition: Good Clinical Impression: Gunter catheter problem Qualifiers: Encounter type: initial encounter Qualified Code(s): T83.9XXA - Unspecified complication of genitourinary prosthetic device, implant and graft, initial encounter - Discharge Information *PRESCRIPTION DRUG MONITORING PROGRAM REVIEWED*: No *COPY OF PRESCRIPTION DRUG MONITORING REPORT IN PATIENT ANTONIO: No Instructions: Indwelling Urinary Catheter Care, Adult Referrals: Shai Samano MD [Primary Care Provider] - Forms: ED Department Discharge Additional Instructions: Continue with routine catheter care. Return to ER as needed. Sepsis Event Note (ED) - Evaluation Sepsis Screening Result: No Definite Risk
== END 2021-10-02 14:10 ==
LOC: JD.ED 12:12
DX: T83.091A Other mechanical complication of indwelling urethral catheter, initial encounter (principal); E78.00 Pure hypercholesterolemia, unspecified; I10 Essential (primary) hypertension; I25.2 Old myocardial infarction; Z86.73 Personal history of transient ischemic attack (TIA), and cerebral infarction without residual deficits; Z79.899 Other long term (current) drug therapy
CPT/HCPCS: 51702; 99283-25

== ENCOUNTER 2022-06-01 18:01 | Emergency (ER) | payer MEDICARE ==
[2022-06-01] MEDS ORDERED: Sodium Chloride 0.9% 10 ML Syringe FLUSH PRN (18:07)
[2022-06-01 19:04] LABS: CORONAVIRUS COVID-19 NAA NEGATIVE (NEGATIVE)
[2022-06-01 19:16] LABS: ESTIMATED GFR 37 mL/min (>60)
[2022-06-01] MEDS ORDERED: Magnesium Sulfate/Water 2 GM in Premix Bag 1 BAG IV ONE (19:48)
[2022-06-01] MEDS ORDERED: Furosemide 40 MG/4 ML VIAL IVPUSH ONE (19:50)
[2022-06-01] MEDS ORDERED: Potassium Chloride 20 MEQ Tab.ER PO ONE (19:54)
[2022-06-01] MEDS ORDERED: Sodium Chloride 0.9% 1,000 ML IV ONE (20:17)
== END 2022-06-01 23:28 | disposition home or self-care (01) ==
LOC: JD.ED 18:01
DX: R09.02 Hypoxemia (principal); I11.0 Hypertensive heart disease with heart failure; I50.9 Heart failure, unspecified; E83.42 Hypomagnesemia; I25.2 Old myocardial infarction; E78.00 Pure hypercholesterolemia, unspecified; J44.9 Chronic obstructive pulmonary disease, unspecified; K21.9 Gastro-esophageal reflux disease without esophagitis; F17.210 Nicotine dependence, cigarettes, uncomplicated; Z86.73 Personal history of transient ischemic attack (TIA), and cerebral infarction without residual deficits; Z79.899 Other long term (current) drug therapy; Z20.822 Contact with and (suspected) exposure to COVID-19
CPT/HCPCS: 0240U; 36415; 71046; 71275; 80053; 83735; 83880; 84484; 85025; 85379; 85610; 85730; 93005; 96361; 96365; 96366; 96375; 99285; A9270; J1940; J3475; J3490; J7030

== ENCOUNTER 2022-11-25 13:00 | Emergency (ER) | payer MEDICARE ==
[2022-11-25] MEDS ORDERED: Sodium Chloride 0.9% 10 ML Syringe FLUSH PRN (13:44)
[2022-11-25] MEDS ORDERED: Sodium Chloride 0.9% 1,000 ML IV SCH (13:45)
[2022-11-25 14:46] LABS: ESTIMATED GFR 35 mL/min (>60)
[2022-11-25] MEDS ORDERED: Sodium Chloride 0.9% 10 ML Syringe FLUSH ONE (15:01)
[2022-11-25] MEDS ORDERED: Iopamidol 612 MG/ML 100 ML Bottle IVPUSH ONE (15:01)
[2022-11-25] MEDS ORDERED: Piperacillin/Tazobactam 4.5 GM in Sodium Chloride 0.9% 100 ML IV ONE (15:44)
[2022-11-25] MEDS ORDERED: metroNIDAZOLE/Normal Saline 500 MG in Premix Bag 1 BAG IV ONE (15:45)
[2022-11-25] MEDS ORDERED: Vancomycin 1 GM SDV ONE (18:34)
[2022-11-25] MEDS ORDERED: Sodium Chloride 0.9% 250 ML ONE (18:34)
== END 2022-11-25 19:20 ==
LOC: JD.ED 13:00
DX: N28.9 Disorder of kidney and ureter, unspecified (principal); I11.0 Hypertensive heart disease with heart failure; I50.9 Heart failure, unspecified; I63.9 Cerebral infarction, unspecified; J44.9 Chronic obstructive pulmonary disease, unspecified; I25.2 Old myocardial infarction; K21.9 Gastro-esophageal reflux disease without esophagitis; E78.00 Pure hypercholesterolemia, unspecified; Z79.02 Long term (current) use of antithrombotics/antiplatelets; Z79.899 Other long term (current) drug therapy
CPT/HCPCS: 36415; 71045; 74177; 80053; 83605; 85025; 86140; 87040; 93005; 96361; 96365; 96367; 96368; 99285; J2543; J3370; J3490; J7030; J7050; U0002; 93010